=== PATIENT | female | born 1950 | race Caucasian/White ===

== ENCOUNTER 2017-10-29 08:20 | Day surgery (SDC) | payer MEDICARE, OTHER ==
[2017-10-27 13:01] VITALS: BMI 38.0
[~2017-10-29 08:20] MED LIST: LACTATED RINGERS 1,000 ML IV SCH
[2017-10-29 08:53] VITALS: RESP 16; TEMP 98
[2017-10-29 08:55] LABS: Glucose,Whole Blood 165 mg/dL (75-99)
[2017-10-29] MEDS ORDERED: PROPOFOL 10 MG/ML 20 ML VIAL IV ONE (08:58)
[2017-10-29] MEDS ORDERED: LIDOCAINE 1% INJ 10MG/ML (20 ML MDV) ONE (08:58)
--- NOTE | 2017-10-29 08:58 | P.GSHP ---
History of Present Illness H&P Date: 10/29/17 Chief Complaint: GERD This is a 59-year-old female referred from Dr. brown. Patient rents today for EGD. She's had issues with GERD. Past Medical History Past Medical History: Diabetes Mellitus, GERD/Reflux, Hyperlipidemia, Hypertension, Myocardial Infarction ([place]), Osteoarthritis (OA), Sleep Apnea/CPAP/ BIPAP, Thyroid Disorder Additional Past Medical History / Comment(s): HIATAL HERNIA, STATES "FOOD GETS STUCK AND THEN I THROW UP" Last Myocardial Infarction Date:: unknown History of Any Multi-Drug Resistant Organisms: None Reported Past Surgical History: Cholecystectomy, Heart Catheterization, Tubal Ligation Past Anesthesia/Blood Transfusion Reactions: Previous Problems w/ Anesthesia Additional Past Anesthesia/Blood Transfusion Reaction / Comment(s): difficulty waking up after anes. Smoking Status: Never smoker - Past Family History Father Family Medical History: Deep Vein Thrombosis (DVT) Medications and Allergies Home Medications Medication Instructions Recorded Confirmed Type Hydrochlorothiazide [Hydrodiuril] 25 mg PO DAILY 06/07/14 10/27/17 History Levothyroxine Sodium [Synthroid] 25 mcg PO DAILY 06/07/14 10/27/17 History Loratadine [Claritin] 10 mg PO DAILY PRN 06/07/14 10/27/17 History Losartan [Cozaar] 50 mg PO QAM 06/07/14 10/27/17 History Metoprolol Succinate 25 mg PO QAM 06/07/14 10/27/17 History metFORMIN HCL [Glucophage] 1,000 mg PO DAILY 06/07/14 10/27/17 History Aspirin [Children's Aspirin] 81 mg PO DAILY 10/27/17 10/27/17 History DULoxetine HCL [Cymbalta] 120 mg PO QAM 10/27/17 10/27/17 History Fish Oil/Dha/Epa [Fish Oil 1,200 1 each PO DAILY 10/27/17 10/27/17 History mg Fish Oil] Omeprazole 20 mg PO DAILY 10/27/17 10/27/17 History Rosuvastatin [Crestor] 20 mg PO DAILY 10/27/17 10/27/17 History glipiZIDE [Glucotrol] 5 mg PO AC-BRKFST 10/27/17 10/27/17 History sitaGLIPtin [Januvia] 100 mg PO DAILY 10/27/17 10/27/17 History Allergies Allergy/AdvReac Type Severity Reaction Status Date / Time Penicillins Allergy Dyspnea Verified 10/29/17 08:29 Surgical - Exam Vital Signs Temp Pulse Resp BP Pulse Ox 98.0 F 70 16 132/60 97 10/29/17 08:51 10/29/17 08:51 10/29/17 08:51 10/29/17 08:51 10/29/17 08:51 BMI 38 - General well developed, no distress - Eyes PERRL - ENT normal pinna - Neck no masses - Respiratory normal expansion - Cardiovascular Rhythm: regular - Abdomen Abdomen: soft, non tender Results - Labs Abnormal Lab Results - Last 24 Hours (Table) 10/29/17 Range/Units 08:46 POC Glucose (mg/dL) 165 H (75-99) mg/dL Assessment and Plan Assessment: GERD. We'll perform EGD.
--- NOTE | 2017-10-29 09:07 | P.OP ---
Date of Procedure: 10/29/17 Preoperative Diagnosis: GERD Postoperative Diagnosis: Hiatal hernia Antral gastritis Esophagitis Procedure(s) Performed: Laparoscopic Ciaran fundoplication Anesthesia: MAC Surgeon: Nathen Guo Pathology: other (Antrum, esophagus) Condition: stable Disposition: PACU Description of Procedure: The patient's placed on the endoscopy table lateral position. She received IV sedation. The gastroscope placed oropharynx passed in the esophagus and stomach. Scope was then placed through the pylorus. The first and second portion of the duodenum appeared normal. Scope was then brought back the antrum and this was mildly inflamed. A biopsies was performed. Scope was then retroflexed and the remainder of the stomach appeared normal. There was a moderate size sliding hiatal hernia. The GE junction was at 38 cm. The distal esophagus appeared inflamed and a biopsies performed. The proximal esophagus appeared normal. Scope was then drawn for patient.
[2017-10-29 09:20] LABS: Glucose,Whole Blood 148 mg/dL (75-99)
[2017-10-29 09:47] VITALS: BP 115/75; PULSE 63
== END 2017-10-29 10:08 | disposition home or self-care (01) ==
LOC: ORWHC2ENDO 08:20
PROVIDERS: ATTEND Surgery
DX: K29.50 Unspecified chronic gastritis without bleeding (principal); K21.0 Gastro-esophageal reflux disease with esophagitis; K44.9 Diaphragmatic hernia without obstruction or gangrene; E11.9 Type 2 diabetes mellitus without complications; Z79.84 Long term (current) use of oral hypoglycemic drugs; E78.5 Hyperlipidemia, unspecified; I10 Essential (primary) hypertension; E07.9 Disorder of thyroid, unspecified; I25.10 Atherosclerotic heart disease of native coronary artery without angina pectoris; I25.2 Old myocardial infarction; M19.90 Unspecified osteoarthritis, unspecified site; G47.33 Obstructive sleep apnea (adult) (pediatric); Z99.89 Dependence on other enabling machines and devices; Z79.82 Long term (current) use of aspirin; Z79.899 Other long term (current) drug therapy; Z88.0 Allergy status to penicillin
CPT/HCPCS: 88305; 88342; 43239; J2001; J2704

== ENCOUNTER → 2017-11-17 | Outpatient (CLI) | payer MEDICARE, OTHER ==
[2017-11-17 13:21] LABS: Basophils # (A) 0.1 k/uL (0-0.2); Basophils % (A) 1 %; Eosinophils # (A) 0.2 k/uL (0-0.7); Eosinophils % (A) 2 %; HCT 41.2 % (34.0-46.0); HGB 14.2 gm/dL (11.4-16.0); Lymphocytes # (A) 2.4 k/uL (1.0-4.8); Lymphocytes % (A) 34 %; MCH 31.7 pg (25.0-35.0); MCHC 34.4 g/dL (31.0-37.0); MCV 92.1 fL (80.0-100.0); Mean Platelet Volume 7.2; Monocytes # (A) 0.5 k/uL (0-1.0); Monocytes % (A) 8 %; Neutrophils # (A) 3.7 k/uL (1.3-7.7); Neutrophils % (A) 53 %; Platelet Count 255 k/uL (150-450); RBC 4.47 m/uL (3.80-5.40); RDW 13.4 % (11.5-15.5); WBC 7.1 k/uL (3.8-10.6)
== END | disposition home or self-care (01) ==
LOC: LABPAT 12:43
PROVIDERS: ATTEND Surgery
DX: Z01.818 Encounter for other preprocedural examination (principal); Z01.812 Encounter for preprocedural laboratory examination; D64.9 Anemia, unspecified; K21.0 Gastro-esophageal reflux disease with esophagitis; F17.200 Nicotine dependence, unspecified, uncomplicated
CPT/HCPCS: 36415; 85025; 93005

== ENCOUNTER 2017-11-21 08:47 | Day surgery (SDC) | payer MEDICARE, OTHER ==
[2017-11-17 11:53] VITALS: BMI 37.8
[~2017-11-21 08:47] MED LIST changes: +CLINDAMYCIN 900 MG in DEXTROSE 5% IN WATER 50 ML IVPB ONE; +DEXAMETHASONE SOD PHOSPHATE 10 MG/ML 1 ML VIAL IV ONE; +GENTAMICIN 380 MG in SODIUM CHLORIDE 0.9% 100 ML IVPB ONE; +HEPARIN SODIUM,PORCINE 5,000 UNIT/ML 1 ML VIAL SQ ONE; +MIDAZOLAM 2 MG/2 ML VIAL IV PRN; +ONDANSETRON 4 MG/2 ML VIAL IVP ONE; +fentaNYL (PF) 50 MCG/ML 2 ML AMP IV PRN
[2017-11-21 09:39] LABS: Glucose,Whole Blood 165 mg/dL (75-99)
--- NOTE | 2017-11-21 10:10 | P.GSHP ---
History of Present Illness H&P Date: 11/21/17 Chief Complaint: . This is a 59-year-old female referred from Dr. Tolentino.The patient has had long- standing problems with reflux esophagitis. The patient underwent recent EGD is found have evidence of esophagitis. Patient has been well informed on the procedure of laparoscopic Ciaran fundoplication. The patient is aware the risk of the conversion to the open procedure, risk of injury to the stomach, liver and spleen. The patient is also a risk of recurrent GERD and dysphagia symptoms. The patient understands there is a postoperative diet of full liquids for 2 weeks after surgery. Past Medical History Past Medical History: Diabetes Mellitus, GERD/Reflux, Hyperlipidemia, Hypertension, Myocardial Infarction ([place]), Osteoarthritis (OA), Sleep Apnea/CPAP/ BIPAP, Thyroid Disorder Additional Past Medical History / Comment(s): HIATAL HERNIA, STATES "FOOD GETS STUCK AND THEN I THROW UP" Last Myocardial Infarction Date:: unknown History of Any Multi-Drug Resistant Organisms: None Reported Past Surgical History: Cholecystectomy, Heart Catheterization, Tubal Ligation Additional Past Surgical History / Comment(s): EGD-10/29/17 Past Anesthesia/Blood Transfusion Reactions: Previous Problems w/ Anesthesia Additional Past Anesthesia/Blood Transfusion Reaction / Comment(s): difficulty waking up after anes. Smoking Status: Never smoker - Past Family History Father Family Medical History: Congestive Heart Failure (CHF), Diabetes Mellitus Medications and Allergies Home Medications Medication Instructions Recorded Confirmed Type Hydrochlorothiazide [Hydrodiuril] 25 mg PO AC-LUNCH 06/07/14 11/17/17 History Levothyroxine Sodium [Synthroid] 25 mcg PO AC-LUNCH 06/07/14 11/17/17 History Loratadine [Claritin] 10 mg PO AC-LUNCH PRN 06/07/14 11/17/17 History Losartan [Cozaar] 50 mg PO AC-LUNCH 06/07/14 11/17/17 History Metoprolol Succinate 25 mg PO AC-LUNCH 06/07/14 11/17/17 History metFORMIN HCL [Glucophage] 1,000 mg PO DAILY 06/07/14 11/17/17 History Aspirin [Children's Aspirin] 81 mg PO AC-LUNCH 10/27/17 11/17/17 History DULoxetine HCL [Cymbalta] 120 mg PO AC-LUNCH 10/27/17 11/17/17 History Fish Oil/Dha/Epa [Fish Oil 1,200 1 each PO AC-LUNCH 10/27/17 11/17/17 History mg Fish Oil] Omeprazole 20 mg PO AC-LUNCH 10/27/17 11/17/17 History Rosuvastatin [Crestor] 20 mg PO AC-LUNCH 10/27/17 11/17/17 History glipiZIDE [Glucotrol] 5 mg PO AC-BRKFST 10/27/17 11/17/17 History sitaGLIPtin [Januvia] 100 mg PO AC-LUNCH 10/27/17 11/17/17 History Allergies Allergy/AdvReac Type Severity Reaction Status Date / Time Penicillins Allergy Dyspnea Verified 11/21/17 09:26 Surgical - Exam Vital Signs Temp Pulse Resp BP Pulse Ox 97.8 F 75 16 146/81 96 11/21/17 09:29 11/21/17 09:29 11/21/17 09:29 11/21/17 09:29 11/21/17 09:29 - General well developed, no distress - Eyes PERRL - ENT normal pinna - Neck no masses - Respiratory normal expansion - Cardiovascular Rhythm: regular - Abdomen Abdomen: soft, non tender Results - Labs Abnormal Lab Results - Last 24 Hours (Table) 11/21/17 Range/Units 09:37 POC Glucose (mg/dL) 165 H (75-99) mg/dL Assessment and Plan Assessment: GERD. We'll perform laparoscopic Ciaran fundoplication.
[2017-11-21] MEDS ORDERED: MIDAZOLAM 2 MG/2 ML VIAL ONE (10:33)
[2017-11-21] MEDS ORDERED: PHENYLEPHRINE-0.9% NACL SYG 1 MG/10 ML SYRINGE ONE (10:33)
[2017-11-21] MEDS ORDERED: GLYCOPYRROLATE 0.2 MG/ML 2 ML VIAL ONE (10:33)
[2017-11-21] MEDS ORDERED: NEOSTIGMINE 1 MG/ML 10 ML VIAL ONE (10:33)
[2017-11-21] MEDS ORDERED: LIDOCAINE 1% INJ 10MG/ML (20 ML MDV) ONE (10:33)
[2017-11-21] MEDS ORDERED: fentaNYL (PF) 50 MCG/ML 2 ML AMP ONE (10:33)
[2017-11-21] MEDS ORDERED: PROPOFOL 10 MG/ML 20 ML VIAL IV ONE (10:33)
[2017-11-21] MEDS ORDERED: SUCCINYLCHOLINE CHLORIDE 100 MG/5 ML SYR IV ONE (10:33)
[2017-11-21] MEDS ORDERED: ROCURONIUM BROMIDE 10 MG/ML 10 ML VIAL IV ONE (10:33)
[2017-11-21] MEDS ORDERED: BUPIVACAINE (PF) 0.25% 30 ML VIAL SQ ONE (10:55)
[2017-11-21] MEDS ORDERED: ONDANSETRON 4 MG/2 ML VIAL IVP PRN (12:05)
--- NOTE | 2017-11-21 12:18 | P.OP ---
Date of Procedure: 11/21/17 Preoperative Diagnosis: GERD Postoperative Diagnosis: Large hiatal hernia with omentum and stomach within hernia sac Procedure(s) Performed: Laparoscopic Ciaran fundal plication with mesh repair of hiatus Anesthesia: ANDIE Surgeon: Nathen Guo Estimated Blood Loss (ml): 5 Pathology: none sent Condition: stable Disposition: PACU Description of Procedure: The patient was placed on the operating table in the supine position. She received general anesthesia. She was then placed in dorsal lithotomy position. Her abdomen was prepped and draped in the usual sterile fashion. The skin incision sites were anesthetized with 1% local Xylocaine. The skin was incised in the left periumbilical area with an 11 scalpel. Using a 5 mm blade was trocar under direct visitation the peritoneal cavity was entered. And then insufflated. After adequate insufflation the laparoscope was placed back into the peritoneal cavity. Next a 5 mm trocar was placed in the right epigastric and then the right lateral position. Another 5 mm trochars placed in the left lateral position. Another 5 mm trocar placed in the left epigastric position. And the original left periumbilical trocar was exchanged for a 10 mm trocar. The left lateral lobe liver was retracted. The patient had a large hiatal hernia. Using the Harmonic scissors the crural defect was dissected in the Harmonic scissors were used to dissect the hiatal hernia sac. The fundus of the stomach was completely mobilized by using the Harmonic scissors to divide short gastric vessels. The stomach was reduced into the peritoneal cavity. The crura was dissected with the Harmonic scissors. And then the crural repair was performed using 2-0 Ethibond suture. The Ciales bio A mesh was then placed over top of the repair and secured with 2-0 Ethibond suture. Next a 58-Bel[place]ian bougie dilator was placed the patient's oral pharynx and into the esophagus into the stomach by the [employer]. The fundoplication was then performed using 2-0 Ethibond suture. A 360 fundoplication was performed. At this point the dilator was withdrawn. The stomach and esophagus were inspected there is known to any injury to the stomach or esophagus. The abdomen was irrigated there is no bleeding seen. The trochars are withdrawn. Skin was closed interrupted 3-0 Monocryl suture. Dermabond was applied. Patient tolerated procedure well and was sent to recovery in stable condition.
[2017-11-21 12:19] LABS: Glucose,Whole Blood 193 mg/dL (75-99)
[2017-11-21] MEDS ORDERED: fentaNYL (PF) 50 MCG/ML 2 ML AMP IVP ONE (12:29)
--- NOTE | 2017-11-21 14:42 | P.CONS ---
History of Present Illness - Reason for Consult Consult date: 11/21/17 - Chief Complaint Medical management - History of Present Illness 67 years old female patient of Dr. Tolentino with past medical history of type 2 diabetes, hyperlipidemia, hypertension, questionable history of myocardial infarction(patient states she has myocardial infarction, though normal cardiac cath from 2013), osteoarthritis, history of obstructive sleep apnea on CPAP at home, hypothyroidism is admitted for an elective laparoscopic Ciaran fundoplication with Dr. Guo. Patient had ongoing reflux esophagitis with a feeling of food getting stuck in the esophagus following by an episode of vomiting for the past few years. Patient denies any chest pain, breathing difficulty, cough, nausea or vomiting. She does have some pain around the site of her ports and some soreness of her shoulder but denies any motor or sensory deficit. Patient denies any history of blood clots in the past. Vitals include a pulse of 72, respiratory rate 18, blood pressure 139/79 , saturating well on room air. Glucose is slightly elevated 193. Review of Systems Constitutional: Denies chills, Denies fever, Denies lethargy, Denies malaise, Denies poor appetite, Denies weakness, Denies weight loss Eyes: denies decreased vision, denies diplopia, denies discharge, denies pain Ears: deny: decreased hearing Ears, nose, mouth and throat: Denies dental pain, Denies headache, Denies nasal discharge, Denies nose pain Cardiovascular: Denies chest pain, Denies decreased exercise tolerance, Denies edema, Denies high blood pressure, Denies irregular heart beat, Denies palpitations, Denies paroxysmal nocturnal dyspnea, Denies rapid heart beat, Denies shortness of breath Respiratory: Denies congestion, Denies cough, Denies cough with sputum, Denies dyspnea, Denies home oxygen, Denies wheezing Gastrointestinal: Denies abdominal pain, Denies change in bowel habits, Denies coffee ground emesis, Denies early satiety, Denies excessive gas, Denies heartburn, Denies hematemesis, Denies hematochezia, Denies loss of appetite, Denies nausea, Denies vomiting Genitourinary: Denies dysuria, Denies flank pain, Denies kidney stones, Denies menorrhagia, Denies urgency, Denies urinary frequency Musculoskeletal: Denies gait dysfunction, Denies limitation of motion, Denies morning stiffness, Denies muscle cramps, endorses shoulder pain Integumentary: Denies rash, Denies wounds, Denies brittle nails, Denies change in hair/nails, Denies darkening of skin Neurological: Denies balance difficulties, Denies change in speech, Denies double vision, Denies gait dysfunction, Denies loss of vision, Denies motor disturbance, Denies numbness, Denies paralysis, Denies paresthesias, Denies seizures Psychiatric: Denies anxiety, Denies depression Endocrine: Denies excessive sweating, Denies excessive thirst, Denies high blood sugars, Denies palpitations Hematologic/Lymphatic: Denies easy bruising, Denies lymphadenopathy Past Medical History Past Medical History: Diabetes Mellitus, GERD/Reflux, Hyperlipidemia, Hypertension, Osteoarthritis ([place]), Sleep Apnea/CPAP/BIPAP, Thyroid Disorder Additional Past Medical History / Comment(s): HIATAL HERNIA, STATES "FOOD GETS STUCK AND THEN I THROW UP" Last Myocardial Infarction Date:: unknown History of Any Multi-Drug Resistant Organisms: None Reported Past Surgical History: Cholecystectomy, Heart Catheterization (normal heart cath in 2013 negative for any obstructive coronary artery lesions), Tubal Ligation Additional Past Surgical History / Comment(s): EGD-10/29/17 Past Anesthesia/Blood Transfusion Reactions: Previous Problems w/ Anesthesia Additional Past Anesthesia/Blood Transfusion Reaction / Comm: difficulty waking up after anes. Past Psychological History: Depression Additional Psychological History / Comment(s): meds are effective Smoking Status: Never smoker Past Alcohol Use History: Occasional Past Drug Use History: None Reported - Past Family History Father Family Medical History: Congestive Heart Failure (CHF), Diabetes Mellitus Mother Family Medical History: COPD, Hypertension Brother(s) Family Medical History: Coronary Artery Disease (CAD), Diabetes Mellitus ( patient has 2 brothers with one brother had 3 episodes of heart attacks. Other brother has diabetes. Patient has no sisters. Patient has 2 kids with diabetes. Patient denies any history of cancer in the family) Medications and Allergies Home Medications Medication Instructions Recorded Confirmed Type Hydrochlorothiazide [Hydrodiuril] 25 mg PO AC-LUNCH 06/07/14 11/21/17 History Levothyroxine Sodium [Synthroid] 25 mcg PO AC-LUNCH 06/07/14 11/21/17 History Loratadine [Claritin] 10 mg PO AC-LUNCH PRN 06/07/14 11/21/17 History Losartan [Cozaar] 50 mg PO AC-LUNCH 06/07/14 11/21/17 History Metoprolol Succinate 25 mg PO AC-LUNCH 06/07/14 11/21/17 History metFORMIN HCL [Glucophage] 1,000 mg PO BID-W/MEALS 06/07/14 11/21/17 History Aspirin [Children's Aspirin] 81 mg PO AC-LUNCH 10/27/17 11/21/17 History DULoxetine HCL [Cymbalta] 120 mg PO AC-LUNCH 10/27/17 11/21/17 History Fish Oil/Dha/Epa [Fish Oil 1,200 1 each PO AC-LUNCH 10/27/17 11/21/17 History mg Fish Oil] Omeprazole 20 mg PO AC-LUNCH 10/27/17 11/21/17 History Rosuvastatin [Crestor] 20 mg PO AC-LUNCH 10/27/17 11/21/17 History sitaGLIPtin [Januvia] 100 mg PO AC-LUNCH 10/27/17 11/21/17 History Docusate [Colace] 100 mg PO BID #20 capsule 11/21/17 Rx HYDROcodone/APAP 7.5-325MG [[place] 1 each PO Q4H PRN #30 tab 11/21/17 Rx 7.5] Allergies Allergy/AdvReac Type Severity Reaction Status Date / Time Penicillins Allergy Severe Dyspnea Verified 11/21/17 13:46 Physical Exam Vitals: Vital Signs Temp Pulse Pulse Resp BP BP Pulse Ox 11/21/17 14:00 72 18 139/79 95 11/21/17 13:45 95 18 143/81 95 11/21/17 13:30 97.2 F L 63 18 151/86 97 11/21/17 13:15 67 18 133/64 95 11/21/17 13:00 66 16 136/64 95 11/21/17 12:45 67 18 135/6 93 L 11/21/17 12:30 64 18 140/63 93 L 11/21/17 12:17 65 18 146/65 93 L 11/21/17 12:02 98.3 F 71 14 142/64 92 L 11/21/17 09:29 97.8 F 75 16 146/81 96 Intake and Output 11/20/17 11/21/17 11/21/17 22:59 06:59 14:59 Intake Total 1115.5 Output Total 20 Balance 1095.5 Intake: IV 1115.5 Output: Estimated Blood Loss 20 Other: Voiding Method Toilet Weight 106.141 kg - Constitutional General appearance: cooperative, no acute distress, obese - EENT Eyes: anicteric sclerae, PERRLA, normal appearance ENT: hearing grossly normal - Neck Neck: no lymphadenopathy, normal ROM, no other, no rigidity, no stridor, no thyromegaly - Respiratory Respiratory: bilateral: CTA, negative: diminished, dullness, rales, rhonchi - Cardiovascular Rhythm: regular Heart sounds: normal: S1, S2 Abnormal Heart Sounds: no systolic murmur, no diastolic murmur, no rub, no S3 Gallop, no S4 Gallop, no click, no other - Gastrointestinal General gastrointestinal: normal bowel sounds, soft, nontender site of incision appears without any sign of edema. Slight soreness on palpation of the abdomen at the site of port - Integumentary Integumentary: no rash - Neurologic Neurologic: CNII-XII intact - Musculoskeletal Musculoskeletal: strength equal bilaterally - Psychiatric Psychiatric: A&O x's 3, appropriate affect Results Labs: Abnormal Lab Results - Last 24 Hours (Table) 11/21/17 11/21/17 Range/Units 09:37 12:17 POC Glucose (mg/dL) 165 H 193 H (75-99) mg/dL Assessment and Plan Plan: #1 GERD with large hiatal hernia status post laparoscopic Ciaran fundoplication postoperative D0 -patient examined postoperatively, continue clear liquid diet. Incentive spirometry. Pain management per primary team. Continue on omeprazole #2 type 2 diabetes continue Januvia. Hold metformin for tonight. Can be restarted on discharge. #3 hyperlipidemia continue Crestor 20 mg with lunch #4 hypertension continue metoprolol, losartan. Hold hydrochlorothiazide for possible [place] I. No previous labs to compare. Obtain CMP #5 hypothyroidism continue home Synthyroid 25 g with lunch #6 depression continue Cymbalta 120 mg with lunch #7 questionable history of myocardial infarction based on stress test results according to the patient. Cardiac cath from 2013 negative for any coronary artery lesions. Continue aspirin, metoprolol, losartan. Asymptomatic patient does have family history of coronary artery disease with type 2 diabetes watch for chest pain. Since patient is asymptomatic no intervention needed at this point #8 CODE STATUS full code #9 DVT prophylaxis with heparin every 12 #10 GI prophylaxis with omeprazole 20 mg daily Thank you for the consult. I'll be happy to assist in patient's medical needs during the patient's hospital stay.
--- NOTE | 2017-11-21 15:52 | FL ---
Single contrast esophagram EXAMINATION TYPE: FL esophagus cervic/pharynx DATE OF EXAM: 11/21/2017 3:40 PM COMPARISON: NONE post op Ciaran fundoplasty, 50ml omnipaque 350, 46sec fl time CLINICAL HISTORY: Status post Wilver fundoplication The patient ingested contrast without difficulty or delay. Noted are changes of Wilver fundoplicatio n. There is no evidence for leak or obstruction. Small amount of residual contrast within the distal esophagus. IMPRESSION: Post-surgical change of Wilver fundoplication without evidence for leak or obstruction. S mall residual distal esophagus.
[2017-11-21] MEDS: D5-0.45% NACL WITH KCL 20MEQ/L 1,000 ML IV SCH ×2 (15:54→22:27)
[2017-11-21 16:46] LABS: Albumin 4.2 g/dL (3.5-5.0); Calcium 9.4 mg/dL (8.4-10.2); Potassium 4.2 mmol/L (3.5-5.1); Total Bilirubin 0.7 mg/dL (0.2-1.3)
[2017-11-21 21:50] LABS: Glucose,Whole Blood 262 mg/dL (75-99)
[2017-11-21] MEDS: INSULIN ASPART 100 UNIT/ML 1 ML 10 ML VIAL SQ SCH (22:08)
[2017-11-21] MEDS: FAMOTIDINE 20 MG/2 ML VIAL IV SCH (22:13)
[2017-11-21] MEDS: MORPHINE SULFATE/PF 10MG/10ML VL IVP PRN (22:24)
[2017-11-22] MEDS: MORPHINE SULFATE/PF 10MG/10ML VL IVP PRN (05:39)
[2017-11-22] MEDS: D5-0.45% NACL WITH KCL 20MEQ/L 1,000 ML IV SCH (05:45)
[2017-11-22 07:21] LABS: Glucose,Whole Blood 209 mg/dL (75-99)
[2017-11-22 07:22] VITALS: RESP 20; TEMP 97.5
[2017-11-22] MEDS: INSULIN ASPART 100 UNIT/ML 1 ML 10 ML VIAL SQ SCH ×2 (08:34→13:05)
[2017-11-22] MEDS: FAMOTIDINE 20 MG/2 ML VIAL IV SCH (08:34)
[2017-11-22] MEDS ORDERED: SODIUM CHLORIDE 0.9% 1,000 ML IV SCH (08:45)
[2017-11-22] MEDS ORDERED: ENOXAPARIN 40 MG/0.4 ML SYRINGE SQ SCH (09:00)
--- NOTE | 2017-11-22 10:54 | P.DS ---
Providers Expected date of discharge: 11/22/17 Attending physician: Nathen Guo Consults: 11/21/17 12:05 Consult Physician Routine Consulting Provider: Valente Nails Consult Reason/Comments: Medical management Do you want consulting provider notified?: Yes Primary care physician: Humza Roberto [facility] Course: Patient underwent repair of a large hiatal hernia. She is doing well today. No pain currently. Tolerating clear liquids. Her postoperative upper GI showed no evidence of leak or obstruction. Prescriptions have been be prescribed by Dr. Guo. She will follow up with him in 1 week. Plan - Discharge Summary Discharge Rx Participant: Yes New Discharge Prescriptions: New Docusate [Colace] 100 mg PO BID #20 capsule HYDROcodone/APAP 7.5-325MG [[place] 7.5] 1 each PO Q4H PRN #30 tab PRN Reason: Pain No Action Losartan [Cozaar] 50 mg PO AC-LUNCH Hydrochlorothiazide [Hydrodiuril] 25 mg PO AC-LUNCH Loratadine [Claritin] 10 mg PO AC-LUNCH PRN PRN Reason: ALLERGIES Levothyroxine Sodium [Synthroid] 25 mcg PO AC-LUNCH metFORMIN HCL [Glucophage] 1,000 mg PO BID-W/MEALS Metoprolol Succinate 25 mg PO AC-LUNCH sitaGLIPtin [Januvia] 100 mg PO AC-LUNCH DULoxetine HCL [Cymbalta] 120 mg PO AC-LUNCH Aspirin [Children's Aspirin] 81 mg PO AC-LUNCH Rosuvastatin [Crestor] 20 mg PO AC-LUNCH Omeprazole 20 mg PO AC-LUNCH Fish Oil/Dha/Epa [Fish Oil 1,200 mg Fish Oil] 1 each PO AC-LUNCH Discharge Medication List Hydrochlorothiazide [Hydrodiuril] 25 mg PO AC-LUNCH 06/07/14 [History] Levothyroxine Sodium [Synthroid] 25 mcg PO AC-LUNCH 06/07/14 [History] Loratadine [Claritin] 10 mg PO AC-LUNCH PRN 06/07/14 [History] Losartan [Cozaar] 50 mg PO AC-LUNCH 06/07/14 [History] Metoprolol Succinate 25 mg PO AC-LUNCH 06/07/14 [History] metFORMIN HCL [Glucophage] 1,000 mg PO BID-W/MEALS 06/07/14 [History] Aspirin [Children's Aspirin] 81 mg PO AC-LUNCH 10/27/17 [History] DULoxetine HCL [Cymbalta] 120 mg PO AC-LUNCH 10/27/17 [History] Fish Oil/Dha/Epa [Fish Oil 1,200 mg Fish Oil] 1 each PO AC-LUNCH 10/27/17 [ History] Omeprazole 20 mg PO AC-LUNCH 10/27/17 [History] Rosuvastatin [Crestor] 20 mg PO AC-LUNCH 10/27/17 [History] sitaGLIPtin [Januvia] 100 mg PO AC-LUNCH 10/27/17 [History] Docusate [Colace] 100 mg PO BID #20 capsule 11/21/17 [Rx] HYDROcodone/APAP 7.5-325MG [[place] 7.5] 1 each PO Q4H PRN #30 tab 11/21/17 [Rx] Follow up Appointment(s)/Referral(s): Nathen Guo MD [STAFF PHYSICIAN] - 2 Weeks
[2017-11-22 11:47] LABS: Glucose,Whole Blood 151 mg/dL (75-99)
[2017-11-22 12:25] VITALS: BP 146/72; PULSE 67
[2017-11-22] MEDS ORDERED: LEVOTHYROXINE 25 MCG TAB PO SCH (12:30)
[2017-11-22] MEDS ORDERED: HYDROCHLOROTHIAZIDE 25 MG TAB PO SCH (12:30)
[2017-11-22] MEDS ORDERED: ASPIRIN 81 MG PO SCH (12:30)
[2017-11-22] MEDS ORDERED: DULoxetine HCL 60 MG CAPSULE.DR PO SCH (12:30)
[2017-11-22] MEDS ORDERED: LOSARTAN 50 MG TAB PO SCH (12:30)
[2017-11-22] MEDS ORDERED: ATORVASTATIN 40 MG TAB PO SCH (12:30)
[2017-11-22] MEDS ORDERED: PANTOPRAZOLE 40 MG TABLET PO SCH (12:30)
[2017-11-22] MEDS ORDERED: METOPROLOL SUCCINATE (ER) 25 MG TAB.ER.24H PO SCH (12:30)
[2017-11-22] MEDS ORDERED: LINAGLIPTIN 5 MG TABLET PO SCH (12:30)
[2017-11-22 14:05] LABS: Hemoglobin A1C 7.1 % (4.0-6.0)
== END 2017-11-22 17:04 | disposition home or self-care (01) ==
LOC: OR 08:47 → 6PED 12:02 → OR 11-22 17:04
PROVIDERS: ATTEND Surgery
DX: K21.0 Gastro-esophageal reflux disease with esophagitis (principal); K44.9 Diaphragmatic hernia without obstruction or gangrene; I10 Essential (primary) hypertension; E78.5 Hyperlipidemia, unspecified; E11.9 Type 2 diabetes mellitus without complications; Z79.84 Long term (current) use of oral hypoglycemic drugs; I25.2 Old myocardial infarction; M19.90 Unspecified osteoarthritis, unspecified site; F32.9 Major depressive disorder, single episode, unspecified; G47.33 Obstructive sleep apnea (adult) (pediatric); Z99.89 Dependence on other enabling machines and devices; E07.9 Disorder of thyroid, unspecified; Z79.82 Long term (current) use of aspirin; Z79.899 Other long term (current) drug therapy; Z88.0 Allergy status to penicillin
CPT/HCPCS: 80053; 83036; 74210; 43282; C1781; J2250; J1644; J1100; J2710; Q9967; J2405; J2001; J1650; J3010; J1580; J2370; J0330; J2704; J2270 ×2; 86850; 86900; 86901

== ENCOUNTER 2017-11-29 10:08 | Emergency (ER) | payer MEDICARE, OTHER ==
--- NOTE | 2017-11-29 11:01 | XR ---
EXAMINATION TYPE: XR chest 2V DATE OF EXAM: 11/29/2017 HISTORY: cough. REFERENCE: NONE. FINDINGS: There is platelike atelectasis in both lungs. Pleural spaces are clear. The heart is not en larged. IMPRESSION: PLATELIKE ATELECTASIS, BOTH LUNGS.
--- NOTE | 2017-11-29 11:02 | XR ---
EXAMINATION TYPE: XR abdomen 2V , 3 VIEWS DATE OF EXAM ORDERED: 11/29/2017 HISTORY: Pain. COMPARISON: None. FINDINGS: There has been a previous cholecystectomy. There is platelike atelectasis at the left lung base. The lung bases are otherwise clear. Within the abdomen, the abdominal gas pattern is normal. There is no evidence of obstruction or free air. No unusual calcifications are seen. IMPRESSION: 1. NO ACUTE INTRA-ABDOMINAL ABNORMALITY. 2. PLATELIKE ATELECTASIS, LEFT LUNG BASE.
[2017-11-29] MEDS ORDERED: SODIUM CHLORIDE 0.9% 2,000 ML IV STA (11:40)
--- NOTE | 2017-11-29 11:40 | ED ---
General Adult HPI - General Chief complaint: Recheck/Abnormal Lab/Rx Stated complaint: post op hiatel hernia, vomiting Time Seen by Provider: 11/29/17 10:26 Source: patient, RN notes reviewed Mode of arrival: wheelchair Limitations: no limitations - History of Present Illness Initial comments: 67-year-old female presents to the emergency department with a chief complaint of 2 episodes of vomiting. Patient had a hiatal hernia repair by Dr. Davidson last Friday. She states that over the last today she's having more difficulty eating and drinking and she had 2 episodes of vomiting today. She states that she was concerned with the vomiting so she thought that she should be seen. She denies any high fevers. She states she has been able tolerate her saliva she has been able to eat and drink she did take her pills today. They were concerned due to the patient's 2 episodes of nausea vomiting so they thought that they should be seen. There is been no fever or chills. Patient denies any recent fever, chills, shortness of breath, chest pain, back pain, abdominal pain , nausea vomiting, numbness or tingling, dysuria or hematuria, constipation or diarrhea, headaches or visual changes, or any other current symptoms. - Related Data Home Medications Medication Instructions Recorded Confirmed Hydrochlorothiazide [Hydrodiuril] 25 mg PO AC-LUNCH 06/07/14 11/29/17 Levothyroxine Sodium [Synthroid] 25 mcg PO QAM 06/07/14 11/29/17 Losartan [Cozaar] 50 mg PO AC-LUNCH 06/07/14 11/29/17 Metoprolol Succinate 25 mg PO AC-LUNCH 06/07/14 11/29/17 Aspirin [Children's Aspirin] 81 mg PO AC-LUNCH 10/27/17 11/29/17 DULoxetine HCL [Cymbalta] 120 mg PO AC-LUNCH 10/27/17 11/29/17 Omeprazole 20 mg PO AC-LUNCH 10/27/17 11/29/17 Rosuvastatin [Crestor] 20 mg PO AC-LUNCH 10/27/17 11/29/17 sitaGLIPtin [Januvia] 100 mg PO AC-LUNCH 10/27/17 11/29/17 Cholecalciferol (Vitamin D3) 2,000 unit PO HS 11/29/17 11/29/17 [Vitamin D3] Cholecalciferol (Vitamin D3) 4,000 unit PO QAM 11/29/17 11/29/17 [Vitamin D3] HYDROcodone/APAP 7.5-325MG [[place] 1 tab PO Q4H PRN 11/29/17 11/29/17 7.5] Naproxen Sodium [Aleve] 440 mg PO Q12H 11/29/17 11/29/17 [place]-3 Fatty Acids/Fish Oil [Fish 1 cap PO HS 11/29/17 11/29/17 Oil 1,000 mg Softgel] [place]-3 Fatty Acids/Fish Oil [Fish 2 cap PO QAM 11/29/17 11/29/17 Oil 1,000 mg Softgel] Triamcinolone 0.025% Cream 1 applic TOPICAL BID 11/29/17 11/29/17 [Kenalog 0.025% Cream] busPIRone HCL 15 mg PO BID 11/29/17 11/29/17 metFORMIN HCL ER [Glucophage Xr] 1,000 mg PO AC-BID 11/29/17 11/29/17 Previous Rx's Medication Instructions Recorded Docusate [Colace] 100 mg PO BID #20 capsule 11/21/17 Allergies Allergy/AdvReac Type Severity Reaction Status Date / Time Penicillins Allergy Severe Dyspnea Verified 11/29/17 12:30 Review of Systems ROS Statement: Those systems with pertinent positive or pertinent negative responses have been documented in the HPI. ROS Other: All systems not noted in ROS Statement are negative. Past Medical History Past Medical History: Diabetes Mellitus, GERD/Reflux, Hyperlipidemia, Hypertension, Osteoarthritis (OA), Sleep Apnea/CPAP/BIPAP, Thyroid Disorder Additional Past Medical History / Comment(s): HIATAL HERNIA, STATES "FOOD GETS STUCK AND THEN I THROW UP" Last Myocardial Infarction Date:: unknown History of Any Multi-Drug Resistant Organisms: None Reported Past Surgical History: Cholecystectomy, Heart Catheterization, Tubal Ligation Additional Past Surgical History / Comment(s): EGD-10/29/17, hiatal hernia surgery Past Anesthesia/Blood Transfusion Reactions: Previous Problems w/ Anesthesia Additional Past Anesthesia/Blood Transfusion Reaction / Comment(s): difficulty waking up after anes. Past Psychological History: Depression Smoking Status: Never smoker Past Alcohol Use History: Occasional Past Drug Use History: None Reported - Past Family History Father Family Medical History: Congestive Heart Failure (CHF), Diabetes Mellitus Mother Family Medical History: COPD, Hypertension Brother(s) Family Medical History: Coronary Artery Disease (CAD), Diabetes Mellitus ( patient has 2 brothers with one brother had 3 episodes of heart attacks. Other brother has diabetes. Patient has no sisters. Patient has 2 kids with diabetes. Patient denies any history of cancer in the family) General Exam Limitations: no limitations General appearance: alert, in no apparent distress ENT exam: Present: normal exam, mucous membranes moist Neck exam: Present: normal inspection. Absent: tenderness, meningismus, lymphadenopathy Respiratory exam: Present: normal lung sounds bilaterally. Absent: respiratory distress, wheezes, rales, rhonchi, stridor Cardiovascular Exam: Present: regular rate, normal rhythm, normal heart sounds. Absent: systolic murmur, diastolic murmur, rubs, gallop, clicks GI/Abdominal exam: Present: soft, normal bowel sounds, other (Well-healing surgical incisions noted). Absent: distended, tenderness, guarding, rebound, rigid Neurological exam: Present: alert, oriented X3 Psychiatric exam: Present: normal affect, normal mood Skin exam: Present: warm, dry, intact, normal color. Absent: rash Course Vital Signs 11/29/17 10:19 Temperature 98.1 F Pulse Rate 72 Respiratory 18 Rate Blood Pressure 114/61 O2 Sat by Pulse 95 Oximetry Medical Decision Making - Medical Decision Making 67-year-old female presents to the emergency department with a chief complaint of episodes of nausea and vomiting. At this time patient's lab work is been reviewed. Dr. Sparrow came down to see the patient and recommended doing magnesium and hydration. At this time patient is requesting discharge home. She has tolerated fluids and liquids here. She will follow-up with Dr. Davidson on Friday. Patient is in agreement this plan all questions have been answered. She will be discharged home - Lab Data Result diagrams: 11/29/17 12:15 11/29/17 12:15 Lab Results 11/29/17 11/29/17 Range/Units 12:15 12:15 WBC 9.7 (3.8-10.6) k/uL RBC 4.48 (3.80-5.40) m/uL Hgb 13.6 (11.4-16.0) gm/dL Hct 39.2 (34.0-46.0) % MCV 87.4 (80.0-100.0) fL MCH 30.4 (25.0-35.0) pg MCHC 34.8 (31.0-37.0) g/dL RDW 13.1 (11.5-15.5) % Plt Count 309 (150-450) k/uL Neutrophils % 64 % Lymphocytes % 23 % Monocytes % 8 % Eosinophils % 4 % Basophils % 1 % Neutrophils # 6.2 (1.3-7.7) k/uL Lymphocytes # 2.3 (1.0-4.8) k/uL Monocytes # 0.7 (0-1.0) k/uL Eosinophils # 0.4 (0-0.7) k/uL Basophils # 0.1 (0-0.2) k/uL Sodium 140 (137-145) mmol/L Potassium 3.9 (3.5-5.1) mmol/L Chloride 96 L (98-107) mmol/L Carbon Dioxide 27 (22-30) mmol/L Anion Gap 17 mmol/L BUN 10 (7-17) mg/dL Creatinine 0.90 (0.52-1.04) mg/dL Est GFR (CKD-EPI)AfAm 76 (>60 ml/min/1.73 sqM) Est GFR (CKD-EPI)NonAf 66 (>60 ml/min/1.73 sqM) Glucose 127 H (74-99) mg/dL Calcium 9.7 (8.4-10.2) mg/dL Magnesium 1.7 (1.6-2.3) mg/dL Total Bilirubin 1.0 (0.2-1.3) mg/dL AST 32 (14-36) U/L ALT 40 (9-52) U/L Alkaline Phosphatase 58 (38-126) U/L Total Protein 7.2 (6.3-8.2) g/dL Albumin 4.3 (3.5-5.0) g/dL - Radiology Data Radiology results: report reviewed, image reviewed Disposition Clinical Impression: Nausea & vomiting Disposition: HOME SELF-CARE Condition: Stable Instructions: Acute Nausea and Vomiting (ED) Additional Instructions: Please use medication as discussed. Please follow up with family doctor if symptoms have not improved over the next two days. Please return to the emergency room if your symptoms increase or worsen or for any other concerns. Referrals: Humza Tolentino MD [Primary Care Provider] - 1-2 days Nathen Guo MD [STAFF PHYSICIAN] - 1-2 days Time of Disposition: 14:24
[2017-11-29 12:29] LABS: Basophils # (A) 0.1 k/uL (0-0.2); Basophils % (A) 1 %; Eosinophils # (A) 0.4 k/uL (0-0.7); Eosinophils % (A) 4 %; HCT 39.2 % (34.0-46.0); HGB 13.6 gm/dL (11.4-16.0); Lymphocytes # (A) 2.3 k/uL (1.0-4.8); Lymphocytes % (A) 23 %; MCH 30.4 pg (25.0-35.0); MCHC 34.8 g/dL (31.0-37.0); MCV 87.4 fL (80.0-100.0); Mean Platelet Volume 7.7; Monocytes # (A) 0.7 k/uL (0-1.0); Monocytes % (A) 8 %; Neutrophils # (A) 6.2 k/uL (1.3-7.7); Neutrophils % (A) 64 %; Platelet Count 309 k/uL (150-450); RBC 4.48 m/uL (3.80-5.40); RDW 13.1 % (11.5-15.5); WBC 9.7 k/uL (3.8-10.6)
[2017-11-29 12:42] LABS: Albumin 4.3 g/dL (3.5-5.0); Calcium 9.7 mg/dL (8.4-10.2); Magnesium 1.7 mg/dL (1.6-2.3); Potassium 3.9 mmol/L (3.5-5.1); Total Protein 7.2 g/dL (6.3-8.2)
--- NOTE | 2017-11-29 12:53 | P.PN ---
Progress Note - Text Progress Note Date: 11/29/17 Patient seen and evaluated. She is comfortable and has been able to take her medications and pills whole without incident. She developed dysphagia following drinking cream of wheat and water. Daughters are at bedside. She is 1 week out following lap hiatal hernia from Dr. Guo. Labs reviewed. Recommend hydration and correction of magnesium. Patient options reviewed including liquids as she is able to tolerate with follow-up with Dr. Guo.
[2017-11-29] MEDS: MAGNESIUM SULFATE-D5W PMX 1 GM in DEXTROSE/WATER 1 100ML.BAG IVPB SCH ×2 (13:02→13:54)
[2017-11-29 15:10] VITALS: BP 117/66; PULSE 66; RESP 16; TEMP 97.8
== END 2017-11-29 15:09 | disposition home or self-care (01) ==
LOC: EC 10:08
DX: R11.2 Nausea with vomiting, unspecified (principal); K21.9 Gastro-esophageal reflux disease without esophagitis; E78.5 Hyperlipidemia, unspecified; M19.90 Unspecified osteoarthritis, unspecified site; I10 Essential (primary) hypertension; E11.9 Type 2 diabetes mellitus without complications; F32.9 Major depressive disorder, single episode, unspecified; E07.9 Disorder of thyroid, unspecified; Z87.19 Personal history of other diseases of the digestive system; Z88.0 Allergy status to penicillin; Z79.1 Long term (current) use of non-steroidal anti-inflammatories (NSAID); Z79.84 Long term (current) use of oral hypoglycemic drugs; Z79.899 Other long term (current) drug therapy; Z90.49 Acquired absence of other specified parts of digestive tract; Z98.890 Other specified postprocedural states
CPT/HCPCS: 99284; 96365; 96367; 96361; 36415; 80053; 83735; 85025; 71046; 74019; J3475

== ENCOUNTER → 2018-09-09 | Outpatient (CLI) | payer MEDICARE, OTHER ==
--- NOTE | 2018-09-13 15:01 | HP ---
HISTORY AND PHYSICAL HISTORY: Ceci Lorenzo is a 68-year-old patient seen with symptomatic left knee osteoarthritis. Treatment options were discussed with her. She elected to proceed with left total knee arthroplasty. Consent regarding procedure was obtained, clearance was provided Dr. Chanda Tolentino. PAST MEDICAL HISTORY: Hypertension, mbx-izalngo-mzrhiolon diabetes, hyperlipidemia, hypothyroidism. PAST SURGICAL HISTORY: Cholecystectomy. MEDICATIONS: Daily medications include buspirone, hydrochlorothiazide, Januvia, levothyroxine, losartan, metformin, metoprolol, rosuvastatin. ALLERGIES: PENICILLIN. SOCIAL HISTORY: Patient denies tobacco use. PHYSICAL EXAMINATION: Evaluation of the left knee range of motion is negative 2 to 115 degrees. Tenderness medial joint line. Positive medial Joellen's. Crepitus along the medial patellofemoral compartments with range of motion. Pain with patellofemoral compression. Ligaments stable. Hip rotation without pain. Distal neurovascular exam is intact left knee. RADIOGRAPHS: Left knee radiographs reveal severe medial moderate patellofemoral compartment osteoarthritis. IMPRESSION: 1. Left knee osteoarthritis. 2. Hypertension. 3. Hyperlipidemia. 4. Hypothyroidism. 5. Kaw-jmrmcdg-eqwyrvflm diabetes. PLAN: Left total knee arthroplasty. MMODL / IJN: [id number] /
== END | disposition home or self-care (01) ==
LOC: LABPAT 13:23
PROVIDERS: ATTEND Orthopaedic Surgery
DX: Z01.812 Encounter for preprocedural laboratory examination (principal)
CPT/HCPCS: 87070

== ENCOUNTER 2018-09-14 10:05 | Inpatient (IN) | payer MEDICARE, OTHER ==
[2018-09-09 12:00] VITALS: BMI 34.9
[~2018-09-14 10:05] MED LIST changes: +ACETAMINOPHEN TAB 500 MG TAB PO ONE; -GENTAMICIN 380 MG in SODIUM CHLORIDE 0.9% 100 ML IVPB ONE; -HEPARIN SODIUM,PORCINE 5,000 UNIT/ML 1 ML VIAL SQ ONE; +HYDROmorphone 0.5 MG/0.5 ML SYRINGE IVP PRN; -LACTATED RINGERS 1,000 ML IV SCH; +LIDOCAINE 1% 20 ML VIAL (10MG/ML) FOR IV START INTRADERMA PRN; +MELOXICAM 7.5 MG TAB PO ONE; -MIDAZOLAM 2 MG/2 ML VIAL IV PRN; +SCOPOLAMINE 1.5MG/72HR PATCH TRANSDERM ONE; +TRANEXAMIC ACID 1,000 MG in SODIUM CHLORIDE 0.9% 50 ML IVPB ONE; -fentaNYL (PF) 50 MCG/ML 2 ML AMP IV PRN
[2018-09-14] MEDS: LACTATED RINGERS 1,000 ML IV SCH ×2 (13:47→18:30)
[2018-09-14 14:01] LABS: Glucose,Whole Blood 139 mg/dL (75-99)
[2018-09-14] MEDS ORDERED: ROPIVACAINE 246.25 MG, EPINEPHrine 0.5 MG, KETOROLAC 30 MG, cloNIDine HCL/PF 80 MCG, WA... MISCELLANE ONE ×5 (14:04)
[2018-09-14] MEDS ORDERED: TRANEXAMIC ACID 1,000 MG/10 ML VIAL ONE (14:42)
[2018-09-14] MEDS ORDERED: PROPOFOL 10 MG/ML 20 ML VIAL IV ONE (14:42)
[2018-09-14] MEDS ORDERED: ROPIVACAINE 1,100 MG, SODIUM CHLORIDE 0.9% 500 ML 330 ML MISCELLANE PRN ×2 (14:42)
[2018-09-14] MEDS ORDERED: ePHEDrine SULFATE/0.9% NACL/PF 50 MG/5 ML SYRINGE IV ONE (14:42)
[2018-09-14] MEDS ORDERED: MIDAZOLAM 2 MG/2 ML VIAL ONE (14:42)
[2018-09-14] MEDS ORDERED: SODIUM CHLORIDE 0.9% 100 ML BAG ONE (14:42)
--- NOTE | 2018-09-14 14:43 | P.ONQ ---
Anesthesiology Proc Note - PNB - Peripheral Nerve Block Performed Left Adductor Canal Infusion Time Out Performed: Yes Procedure Start Time: 14:01 Indication: Acute Post-Operative Pain, Analgesia Sedation Type: Sedate with meaningful contact maintained Preparation: Sterile Prep Position: Supine Catheter Depth at Skin (cm): 8 Catheter: Indwelling Needle Types: Other (see comment) ( Vaibhav) Needle Size: 100mm (4") Needle Gauge: 18 Technique: Ultrasound Injectate: 0.5% Ropivacaine (see comment for volume) (20cc) Blood Aspirated: No Pain Paresthesia on Injection Noted: No Resistance on Injection: Normal Events: Uneventful and Well Tolerated
[2018-09-14] MEDS ORDERED: ceFAZolin 3,000 MG in SODIUM CHLORIDE 0.9% IRRIGATIO 3,000 ML IRRIGATION ONE (15:13)
[2018-09-14] MEDS ORDERED: LACTATED RINGERS 1,000 ML IV ONE (15:30)
[2018-09-14] MEDS ORDERED: ONDANSETRON 4 MG/2 ML VIAL IVP PRN (16:20)
[2018-09-14] MEDS ORDERED: HYDROcodone/APAP 5-325MG 1 EACH TAB PO PRN ×2 (16:20)
[2018-09-14] MEDS ORDERED: HYDROmorphone 0.5 MG/0.5 ML SYRINGE IVP PRN ×3 (16:20)
[2018-09-14] MEDS ORDERED: NALOXONE 0.4 MG/ML 1 ML VIAL IV PRN (16:20)
--- NOTE | 2018-09-14 16:20 | P.OP ---
Date of Procedure: 09/14/18 Preoperative Diagnosis: Left knee osteoarthritis Postoperative Diagnosis: Left knee osteoarthritis Procedure(s) Performed: Left total knee arthroplasty Implants: 1. Depuy attune size 4 left cruciate-retaining cemented femur 2. Depuy attune size 5 fixed bearing cemented tibial baseplate 3. Depuy attune size 4 fixed bearing cruciate retaining 5 mm polyethylene tibial insert 4. Depuy attune 32 mm all polyethylene cemented patella Anesthesia: regional (Adductor canal catheter), local, spinal Surgeon: Mike Stoddard Item Processing Clerk #1: Rahul Matthews Estimated Blood Loss (ml): 50 Pathology: other (Bone) Condition: stable Disposition: PACU Indications for Procedure: 68-year-old patient seen with symptomatic left knee osteoarthritis. After treatment options were discussed, she elected to proceed with total knee arthroplasty Operative Findings: See description of procedure Description of Procedure: Patient was taken to the operative suite after having an adductor canal catheter placed by the department of anesthesia. Patient underwent a spinal anesthetic by the department of anesthesia. Patient was given preoperative IV intake antibiotics and TXA. A well-padded tourniquet was placed about the left lower extremity. The lower extremity was then prepped and draped in the normal sterile orthopedic fashion. The extremity was elevated, a tourniquet was insufflated to 300. A standard anterior incision was made sharply through skin. Dissection was taken down through the subcutaneous soft tissues down to the extensor mechanism. A medial arthrotomy was performed, patella was everted and knee was flexed. There was advanced osteoarthritis noted. I introduced my distal intramedullary femoral drill. I then introduced the distal femoral cutting jig. Thierry VERGARA secured the cutting jig with 2 pins. I held retractors in position while Thierry VERGARA performed the distal femoral resection through the guide area we now removed her distal femoral cutting guide. We now placed our 4-in-1 femoral cutting block and positioned and it was secured with 2 pins by Thierry VERGARA while I held the block in position. The distal femoral finishing was now completed. A proximal tibial cutting guide was positioned. I held the guide in the appropriate position with both hands well Thierry VERGARA inserted stabilizing pins into the guide. Proximal tibial cut was made. We now placed a trial femoral component into position, along with an appropriate size tibial tray and insert. We now took the knee through range of motion and had full extension good flexion and good overall soft tissue balance noted. The patella was everted and stabilized with 2 towel clips held by Thierry VERGARA while I performed a flush with patellar quad tendon utilizing a fresh sawblade. We templated the patella, appropriate drill holes were made. An appropriate trial patella was positioned, knee was taken through full range of motion with the patella tracking very nicely. The trial patella was removed. Drill holes were made through the femoral component. All trial components were removed after marking off the appropriate rotation of the tibia. Retractors were now positioned along the proximal tibia. An appropriate keel punch was made with the appropriate size tibial guide by myself on Thierry VERGARA assisted by holding retractors. At this point appropriate size implants were chosen and opened. The joint was irrigated copiously with pulse lavage mechanical irrigation. The posterior capsule was infiltrated with local analgesic. The wound was irrigated with pulse lavage mechanical irrigation. We mixed antibiotic methylmethacrylate. We placed the knee into flexion. We placed multiple retractors assisted by Thierry VERGARA to expose the proximal tibia. Once the methyl methacrylate was ready, the tibial component was cemented into place removing any excess methylmethacrylate form by both myself and Thierry VERGARA. The femoral component was cemented into place removing the removing any excess methylmethacrylate performed by both myself and Thierry VERGARA. We then inserted the appropriate size polyethylene tibial insert. We made sure that it was locked into position. We took the knee into full extension, and then back in a flexion making sure we had removed any excess methylmethacrylate. The patellar component was then cemented down and secured with clamp. Excess methylmethacrylate removed. We kept the knee in full extension, patellar clamp in position until methylmethacrylate had hardened. Once it had hardened the patellar clamp was removed. The knee was taken through full range of motion. The patella tracked nicely. There was good soft tissue balancing. The tourniquet was now released. Additional hemostasis was achieved via electrocautery. A second gram of TXA was given. The wound again was irrigated with pulse lavage mechanical irrigation. The superficial soft tissues were infiltrated local analgesic. The extensor mechanism was repaired with Vicryl. We checked the repair with range of motion and it was stable. The subcutaneous soft tissues were repaired with Vicryl in layers. The skin was approximated with pernio/Dermabond. Sterile dressings were applied followed by loose web roll and Lauro bandage. The patient was transferred to a bed, and taken to recovery in stable and satisfactory condition. Thierry VERGARA assisted with this complex procedure.
[2018-09-14 17:00] LABS: Glucose,Whole Blood 148 mg/dL (75-99)
--- NOTE | 2018-09-14 17:28 | XR ---
EXAMINATION TYPE: XR knee limited LT DATE OF EXAM: 09/14/2018 COMPARISON: NONE HISTORY: Postop TECHNIQUE: 2 views FINDINGS: There is left knee prosthesis. Components are in anatomic position. I see no sign of joint effusion. IMPRESSION: No complicating process seen.
[2018-09-14] MEDS: traMADol 50 MG TAB PO SCH ×2 (18:31→22:49)
[2018-09-14 20:38] LABS: Glucose,Whole Blood 326 mg/dL (75-99)
[2018-09-14] MEDS ORDERED: SENNOSIDES-DOCUSATE SODIUM 1 EACH TAB PO SCH (21:00)
[2018-09-14] MEDS ORDERED: CHOLECALCIFEROL 1,000 UNIT TAB PO SCH (21:15)
[2018-09-14] MEDS ORDERED: diphenhydrAMINE 25 MG CAP PO SCH (21:15)
[2018-09-14] MEDS: ENOXAPARIN 30 MG/0.3 ML SYRINGE SQ SCH (21:53)
[2018-09-14] MEDS: CLINDAMYCIN 900 MG in DEXTROSE 5% IN WATER 50 ML IVPB SCH ×2 (22:49)
[2018-09-14] MEDS: INSULIN ASPART 100 UNIT/ML 1 ML 10 ML VIAL SQ SCH (22:51)
[2018-09-15] MEDS: CLINDAMYCIN 900 MG in DEXTROSE 5% IN WATER 50 ML IVPB SCH ×2 (03:17)
[2018-09-15] MEDS: LACTATED RINGERS 1,000 ML IV SCH ×2 (05:13)
[2018-09-15] MEDS ORDERED: LEVOTHYROXINE 25 MCG TAB PO SCH (06:30)
[2018-09-15 07:11] LABS: Glucose,Whole Blood 185 mg/dL (75-99)
[2018-09-15 07:25] LABS: Basophils % (A) 0 %; Eosinophils % (A) 0 %; HCT 32.7 % (34.0-46.0); HGB 10.8 gm/dL (11.4-16.0); Lymphocytes # (A) 1.5 k/uL (1.0-4.8); Lymphocytes % (A) 14 %; MCH 30.7 pg (25.0-35.0); MCV 93.2 fL (80.0-100.0); Mean Platelet Volume 8.3; Monocytes # (A) 0.8 k/uL (0-1.0); Monocytes % (A) 8 %; Neutrophils # (A) 7.9 k/uL (1.3-7.7); Neutrophils % (A) 76 %; Platelet Count 179 k/uL (150-450); RBC 3.51 m/uL (3.80-5.40); RDW 13.4 % (11.5-15.5); WBC 10.4 k/uL (3.8-10.6)
[2018-09-15] MEDS ORDERED: metFORMIN 500 MG TAB PO SCH (07:30)
[2018-09-15 07:50] VITALS: BP 121/71; PULSE 66; RESP 16; TEMP 97.7
[2018-09-15] MEDS: ENOXAPARIN 30 MG/0.3 ML SYRINGE SQ SCH (07:54)
[2018-09-15] MEDS: INSULIN ASPART 100 UNIT/ML 1 ML 10 ML VIAL SQ SCH ×2 (07:54→15:42)
[2018-09-15] MEDS: traMADol 50 MG TAB PO SCH ×2 (07:55→15:11)
[2018-09-15] MEDS ORDERED: MELOXICAM 7.5 MG TAB PO SCH (09:00)
[2018-09-15] MEDS ORDERED: busPIRone HCl 5 MG TAB PO SCH (09:00)
[2018-09-15] MEDS ORDERED: CHOLECALCIFEROL 1,000 UNIT TAB PO SCH (09:00)
[2018-09-15 12:01] LABS: Glucose,Whole Blood 129 mg/dL (75-99)
[2018-09-15] MEDS ORDERED: ATORVASTATIN 40 MG TAB PO SCH (12:30)
[2018-09-15] MEDS ORDERED: DULoxetine HCL 60 MG CAPSULE.DR PO SCH (12:30)
[2018-09-15] MEDS ORDERED: LOSARTAN 50 MG TAB PO SCH (12:30)
[2018-09-15] MEDS ORDERED: METOPROLOL SUCCINATE (ER) 25 MG TAB.ER.24H PO SCH (12:30)
[2018-09-15] MEDS ORDERED: LINAGLIPTIN 5 MG TABLET PO SCH (12:30)
--- NOTE | 2018-09-15 12:47 | P.PN ---
Progress Note - Text Anesthesia POD 1. Patient is status post left TKR under spinal anesthesia with a left adductor canal catheter placed for postoperative pain relief. With ropivacaine 0.2% running at 8 cc's per hour, the patient's VAS is (0, 2). Catheter site is clean dry and intact.
--- NOTE | 2018-09-15 12:50 | P.PN ---
Subjective Progress Note Date: 09/15/18 Principal diagnosis: Status post left total knee arthroplasty Patient evaluated today at bedside, she is resting comfortably. She's ambulated with therapy. Her pain is well-controlled. She denies any chest pain or shortness of breath. Objective - Vital Signs Vital signs: Vital Signs Temp 97.7 F 09/15/18 07:49 Pulse 66 09/15/18 07:49 Resp 16 09/15/18 07:49 BP 121/71 09/15/18 07:49 Pulse Ox 100 09/15/18 07:49 Intake & Output 09/14/18 09/15/18 09/15/18 18:59 06:59 18:59 Intake Total 1857 1900 596 Output Total 60 Balance 1797 1900 596 Intake: IV 1857 Intake, IV Titration 820 Amount Clindamycin 900 mg In 100 Dextrose 5% in Water 50 ml @ 50 mls/hr IVPB Q6H G[facility]FFIN Rx#:[id number] Lactated Ringers 1,000 ml 720 @ 80 mls/hr IV .[id number] GRIFFIN Rx#:[id number] Oral 1080 596 Output: Estimated Blood Loss 60 Other: Voiding Method Toilet # Voids 2 - Exam Left lower extremity: Incision is clean, dry, and intact. The exofin fusion tape is in good condition. There is minimal soft tissue swelling and ecchymosis surrounding the medial and lateral aspects of the incision. Calf is soft, no tenderness with palpation. Plantar flexion, dorsiflexion, EHL, FHL are intact. Sensory exam to light touch throughout the extremity is intact, dorsal pedis pulses 2+. - Labs CBC & Chem 7: 09/15/18 06:41 Labs: Abnormal Lab Results - Last 24 Hours (Table) 09/14/18 09/14/18 09/14/18 Range/Units 13:44 16:57 20:36 RBC (3.80-5.40) m/uL Hgb (11.4-16.0) gm/dL Hct (34.0-46.0) % Neutrophils # (1.3-7.7) k/uL POC Glucose (mg/dL) 139 H 148 H 326 H (75-99) mg/dL 09/15/18 09/15/18 09/15/18 Range/Units 06:41 07:10 12:00 RBC 3.51 L (3.80-5.40) m/uL Hgb 10.8 L (11.4-16.0) gm/dL Hct 32.7 L (34.0-46.0) % Neutrophils # 7.9 H (1.3-7.7) k/uL POC Glucose (mg/dL) 185 H 129 H (75-99) mg/dL Assessment and Plan Plan: Assessment: Postop day 1 status post left total knee arthroplasty Plan: Pain control, we'll discharge home on oral medication GI and DVT prophylaxis, aspirin 81 mg twice a day Wound care instructions discussed Home physical therapy and nursing after discharge Medical recommendations Discharge planning: Patient will be discharged home today Time with Patient: Less than 30
--- NOTE | 2018-09-15 12:56 | P.DS ---
Providers Date of admission: 09/14/18 12:57 Expected date of discharge: 09/15/18 Attending physician: Mike Stoddard Consults: 09/14/18 16:20 Consult Physician Routine Consulting Provider: Humza Tolentino Reason/Comments: Medical management Do you want consulting provider notified?: Yes 09/14/18 18:31 Consult Physician Routine Consulting Provider: Ave Wetzel Consult Reason/Comments: medical management Do you want consulting provider notified?: Already Contacted Primary care physician: Humza Tolentino Hospital Course: Date of admission: 09/14/2018 Date of discharge: 09/15/2018 Admission diagnosis: Status post left total knee arthroplasty Discharge diagnosis: Same Attending physician: Dr. Stoddard Surgical procedures: Left total knee arthroplasty Brief history: Patient is a 68-year-old female with a history of progressive primary left knee osteoarthritis. At this point patient has failed conservative treatment measures and has opted to proceed with a elective left total knee arthroplasty. Hospital course: Details of patient's surgery can be found in operative report. Patient tolerated the procedure well and was subsequently transported to orthopedic floor. Patient's orthopeidc and medical care was provided daily. Patient had daily laboratory tests performed for evaluation of overall blood counts. Patient had daily physical therapy to include strengthening range of motion as well as education with walker ambulation. Patient had daily CPM usage as part of their physical therapy program. Patient was treated with Lovenox for their postoperative DVT prophylaxis during their inpatient stay. Patient was noted to have a relatively uneventful postoperative course. Patient reported satisfactory pain control with oral pain medications by postoperative day 0. Patient showed satisfactory progress with physical therapy. Patient moved steadily through the program and had no difficulty meeting the goals by postoperative day 1. Given patient's otherwise satisfactory course and having met physical therapy goals, plan is to discharge patient home on postoperative day 1. Discharge condition/disposition: Patient will be discharged home in stable condition. Discharge medications: Instructions are given on resumption of patient's normal daily medications per primary care recommendation, in addition patient will be prescribed . Discharge instructions: 1. Wound care and infection precautions, keep incision dry and covered while showering, no lotions, creams, moisturizers. No soaking, tubs, pools, hottubs. Do not scrub over the incision. 2. Weight-bear as tolerated with walker / cane until follow-up. 3. Ice and elevate when necessary. Do not exceed 20 minutes per hour with ice pack. 4. Utilize compression sleeve until seen at first follow up appointment. 5. Visiting nursing care. 6. Home physical therapy including home CPM. 7. Pain meds and anticoagulants per prescription. 8. Pain medication has potential to cause constipation. Increase oral fluid and fiber intake. Contact primary care provider if you have not had a bowel movement within 48 hours after discharge 9. No anti-inflammatory medication until discussed at first post operative visit, this including Motrin, Aleve, Mobic, Diclofenac. 10. Follow up in office at 2 weeks postop with Thierry Matthews PA-C 11. Follow up with your primary care doctor 7-10 days after discharge. 12. Contact [facility] with any questions, . Procedures: Left total knee arthroplasty Patient Condition at Discharge: Good Plan - Discharge Summary Discharge Rx Participant: No New Discharge Prescriptions: New Aspirin [Adult Low Dose Aspirin EC] 81 mg PO BID #60 tablet. Hydrocodone/Acetaminophen [[place] 5-325] 1 each PO Q6HR PRN #28 tab PRN Reason: Pain traMADol HCl [Ultram] 50 mg PO Q6H PRN #28 tab PRN Reason: Pain No Action Losartan [Cozaar] 50 mg PO AC-LUNCH Hydrochlorothiazide [Hydrodiuril] 25 mg PO AC-LUNCH Levothyroxine Sodium [Synthroid] 25 mcg PO QAM Metoprolol Succinate 25 mg PO AC-LUNCH sitaGLIPtin [Januvia] 100 mg PO AC-LUNCH DULoxetine HCL [Cymbalta] 120 mg PO AC-LUNCH Rosuvastatin [Crestor] 20 mg PO AC-LUNCH busPIRone HCL 15 mg PO DAILY metFORMIN HCL ER [Glucophage Xr] 1,000 mg PO AC-BID Cholecalciferol (Vitamin D3) [Vitamin D3] 2,000 unit PO HS Cholecalciferol (Vitamin D3) [Vitamin D3] 4,000 unit PO QAM Triamcinolone 0.025% Cream [Kenalog 0.025% Cream] 1 applic TOPICAL BID PRN PRN Reason: Skin Irritation diphenhydrAMINE HCL [Benadryl] 50 mg PO HS Turmeric Root Extract [Turmeric] 500 mg PO DAILY Discharge Medication List Hydrochlorothiazide [Hydrodiuril] 25 mg PO AC-LUNCH 06/07/14 [History] Levothyroxine Sodium [Synthroid] 25 mcg PO QAM 06/07/14 [History] Losartan [Cozaar] 50 mg PO AC-LUNCH 06/07/14 [History] Metoprolol Succinate 25 mg PO AC-LUNCH 06/07/14 [History] DULoxetine HCL [Cymbalta] 120 mg PO AC-LUNCH 10/27/17 [History] Rosuvastatin [Crestor] 20 mg PO AC-LUNCH 10/27/17 [History] sitaGLIPtin [Januvia] 100 mg PO AC-LUNCH 10/27/17 [History] Cholecalciferol (Vitamin D3) [Vitamin D3] 2,000 unit PO HS 11/29/17 [History] Cholecalciferol (Vitamin D3) [Vitamin D3] 4,000 unit PO QAM 11/29/17 [History] Triamcinolone 0.025% Cream [Kenalog 0.025% Cream] 1 applic TOPICAL BID PRN 11/29 [History] busPIRone HCL 15 mg PO DAILY 11/29/17 [History] metFORMIN HCL ER [Glucophage Xr] 1,000 mg PO AC-BID 11/29/17 [History] Turmeric Root Extract [Turmeric] 500 mg PO DAILY 09/09/18 [History] diphenhydrAMINE HCL [Benadryl] 50 mg PO HS 09/09/18 [History] Aspirin [Adult Low Dose Aspirin EC] 81 mg PO BID #60 tablet. 09/15/18 [Rx] Hydrocodone/Acetaminophen [[place] 5-325] 1 each PO Q6HR PRN #28 tab 09/15/18 [Rx] traMADol HCl [Ultram] 50 mg PO Q6H PRN #28 tab 09/15/18 [Rx] Follow up Appointment(s)/Referral(s): [facility] [NON-STAFF] - As Needed Rahul Matthews PAC [PHYSICIAN STORE HOST] - 09/30/18 2:50 pm Activity/Diet/Wound Care/Special Instructions: Orthopedic Discharge Instructions: 1. Wound care and infection precautions, keep incision dry and covered while showering, no lotions, creams, moisturizers. No soaking, pools, hot tubs. Do not scrub over incision. 2. Weight-bear as tolerated with walker / cane until follow-up. 3. Ice and elevate when necessary. Do not exceed 20 minutes per hour with ice pack. 4. Utilize compression sleeve until seen at first follow up appointment. 5. Pain meds and anticoagulants per prescription. 6. Pain medication has potential to cause constipation. Increase oral fluid and fiber intake. Contact primary care provider if you have not had a bowel movement within 48 hours after discharge. 7. No anti-inflammatory medication until discussed at first post operative visit, this including Motrin, Aleve, Mobic, Diclofenac. 8. Follow up in office at 2 weeks postop with Thierry Matthews PA-C 9. Follow up with your primary care doctor 7-10 days after discharge. 10. Contact [facility] with any questions, . [facility] will see you in 24-48 hours after your discharge. They can be reached at [phone] for any questions. Discharge Disposition: HOME WITH HOME HEALTH SERVICES
--- NOTE | 2018-09-15 13:56 | P.CONS ---
History of Present Illness - Reason for Consult Consult date: 09/14/18 medical management - Chief Complaint Left total knee replacement - History of Present Illness This Is a pleasant 68-year-old female patient of Dr. Tolentino. She has underlying history of diabetes mellitus type 2, hyperlipidemia, hypertension, osteoarthritis and obstructive sleep apnea on BiPAP machine admitted to the hospital for elective left total knee replacement performed on 09/14/2018. Patient is currently doing well without any significant perioperative complications, patient does not have no lightheadedness no dizziness, no other or GI complaints including chest pain or shortness of breath or palpitations. She currently is receiving aspirin for DVT prophylaxis incentive spirometry program, and bowel program as well. Review of Systems Constitutional: Reports as per HPI, Denies anorexia, Denies chills, Denies chronic headaches, Denies chronic pain, Denies daytime sleepiness, Denies fatigue, Denies fever, Denies lethargy, Denies malaise, Denies night sweats, Denies poor appetite, Denies sweats, Denies weakness, Denies weight gain, Denies weight loss Ears, nose, mouth and throat: Reports as per HPI Cardiovascular: Reports as per HPI, Denies chest pain, Denies claudication, Denies decreased exercise tolerance, Denies dyspnea on exertion, Denies edema, Denies high blood pressure, Denies irregular heart beat, Denies leg edema, Denies lightheadedness, Denies orthopnea, Denies palpitations, Denies paroxysmal nocturnal dyspnea, Denies phlebitis, Denies rapid heart beat, Denies shortness of breath, Denies syncope Respiratory: Reports as per HPI, Denies congestion, Denies cough, Denies cough with sputum, Denies dyspnea, Denies excessive sputum, Denies hemoptysis, Denies home oxygen, Denies pain, Denies pain on inspiration, Denies pleurisy, Denies respiratory infections, Denies sleep apnea, Denies snoring, Denies wheezing Gastrointestinal: Reports as per HPI, Denies abdominal pain, Denies belching, Denies bloating, Denies BRBPR, Denies change in bowel habits, Denies coffee ground emesis, Denies constipation, Denies diarrhea, Denies dyspepsia, Denies early satiety, Denies excessive gas, Denies heartburn, Denies hematemesis, Denies hematochezia, Denies indigestion, Denies jaundice, Denies lactose intolerance, Denies loss of appetite, Denies melena, Denies nausea, Denies vomiting Genitourinary: Reports as per HPI Menstruation: Reports as per HPI, Denies amenorrhea, Denies amenorrhea on BC, Denies currently menstrual, Denies cycle < 21 days, Denies cycle > 35 days, Denies cycle variable, Denies menses 1-7 days, Denies menses 8 or > days, Denies menses variable, Denies period heavy, Denies period light, Denies period normal, Denies period spotting, Denies post hysterectomy, Denies postmenopausal , Denies premenarcheal Musculoskeletal: Reports as per HPI, Reports limitation of motion, Denies arm numbness/tingling, Denies atrophy, Denies fractures, Denies frequent falls, Denies gait dysfunction, Denies hot joints, Denies leg numbness/tingling, Denies loss of height, Denies low back pain, Denies morning stiffness, Denies muscle cramps, Denies muscle weakness, Denies myalgias, Denies neck pain, Denies neck stiffness, Denies prior amputations, Denies redness of joints, Denies shooting arm pain, Denies shooting leg pain Integumentary: Reports as per HPI Neurological: Reports as per HPI Psychiatric: Reports as per HPI Endocrine: Reports as per HPI Hematologic/Lymphatic: Reports as per HPI, Denies easy bleeding, Denies easy bruising, Denies lymphadenopathy, Denies lymphedema, Denies thrombophilia Allergic/Immunologic: Reports as per HPI, Denies allergic rhinitis, Denies anaphylaxis, Denies angioedema, Denies gluten intolerance, Denies persistent infections, Denies seasonal allergies, Denies urticaria, Denies wheezing Past Medical History Past Medical History: Diabetes Mellitus, Hyperlipidemia, Hypertension, Osteoarthritis (OA), Sleep Apnea/CPAP/BIPAP, Thyroid Disorder Additional Past Medical History / Comment(s): uses CPAP Last Myocardial Infarction Date:: unknown History of Any Multi-Drug Resistant Organisms: None Reported Past Surgical History: Cholecystectomy, Heart Catheterization, Tubal Ligation Additional Past Surgical History / Comment(s): EGD, lap. jen fundoplication Past Anesthesia/Blood Transfusion Reactions: Previous Problems w/ Anesthesia Additional Past Anesthesia/Blood Transfusion Reaction / Comm: difficulty waking up after anes. @times Smoking Status: Never smoker - Past Family History Father Family Medical History: Congestive Heart Failure (CHF), Diabetes Mellitus Mother Family Medical History: COPD, Hypertension Brother(s) Family Medical History: Coronary Artery Disease (CAD), Diabetes Mellitus Medications and Allergies Home Medications Medication Instructions Recorded Confirmed Type Hydrochlorothiazide [Hydrodiuril] 25 mg PO AC-LUNCH 06/07/14 09/14/18 History Levothyroxine Sodium [Synthroid] 25 mcg PO QAM 06/07/14 09/14/18 History Losartan [Cozaar] 50 mg PO AC-LUNCH 06/07/14 09/14/18 History Metoprolol Succinate 25 mg PO AC-LUNCH 06/07/14 09/14/18 History DULoxetine HCL [Cymbalta] 120 mg PO AC-LUNCH 10/27/17 09/14/18 History Rosuvastatin [Crestor] 20 mg PO AC-LUNCH 10/27/17 09/14/18 History sitaGLIPtin [Januvia] 100 mg PO AC-LUNCH 10/27/17 09/14/18 History Cholecalciferol (Vitamin D3) 2,000 unit PO HS 11/29/17 09/14/18 History [Vitamin D3] Cholecalciferol (Vitamin D3) 4,000 unit PO QAM 11/29/17 09/14/18 History [Vitamin D3] Triamcinolone 0.025% Cream 1 applic TOPICAL BID PRN 11/29/17 09/14/18 History [Kenalog 0.025% Cream] busPIRone HCL 15 mg PO DAILY 11/29/17 09/14/18 History metFORMIN HCL ER [Glucophage Xr] 1,000 mg PO AC-BID 11/29/17 09/14/18 History Turmeric Root Extract [Turmeric] 500 mg PO DAILY 09/09/18 09/14/18 History diphenhydrAMINE HCL [Benadryl] 50 mg PO HS 09/09/18 09/14/18 History Aspirin [Adult Low Dose Aspirin EC] 81 mg PO BID #60 tablet. 09/15/18 Rx Hydrocodone/Acetaminophen [[place] 1 each PO Q6HR PRN #28 tab 09/15/18 Rx 5-325] traMADol HCl [Ultram] 50 mg PO Q6H PRN #28 tab 09/15/18 Rx Allergies Allergy/AdvReac Type Severity Reaction Status Date / Time Penicillins Allergy Severe Dyspnea Verified 09/14/18 20:20 Physical Exam Vitals: Vital Signs Temp Pulse Resp BP BP Pulse Ox 09/14/18 18:00 65 16 116/55 96 09/14/18 17:45 66 16 120/58 94 L 09/14/18 17:30 75 16 123/61 95 09/14/18 17:15 64 16 122/59 97 09/14/18 17:00 65 16 116/59 97 09/14/18 16:45 63 16 121/57 96 09/14/18 16:38 98.6 F 62 14 113/56 100 09/14/18 14:29 54 L 18 124/66 100 09/14/18 13:24 98.1 F 60 18 162/71 96 Intake and Output 09/14/18 09/14/18 09/14/18 06:59 14:59 22:59 Intake Total 1056 801 Output Total 60 Balance 1056 741 Intake: IV 1056 801 Output: Estimated Blood Loss 60 - Constitutional General appearance: cooperative, no acute distress, obese - EENT Eyes: anicteric sclerae, PERRLA, dentition normal, normal appearance ENT: hearing grossly normal, NA/AT, normal oropharynx - Neck Neck: no lymphadenopathy, normal ROM, no other, no rigidity, no stridor, no thyromegaly - Cardiovascular Rhythm: regular Heart sounds: normal: S1, S2 Abnormal Heart Sounds: no systolic murmur, no diastolic murmur, no rub, no S3 Gallop, no S4 Gallop, no click, no other - Gastrointestinal General gastrointestinal: normal bowel sounds - Integumentary Integumentary: decreased turgor, normal, normal turgor - Neurologic Neurologic: CNII-XII intact - Musculoskeletal Musculoskeletal: strength equal bilaterally - Psychiatric Psychiatric: A&O x's 3, appropriate affect, intact judgment & insight Results CBC & Chem 7: 09/15/18 06:41 Labs: Abnormal Lab Results - Last 24 Hours (Table) 09/14/18 09/14/18 09/14/18 Range/Units 13:44 16:57 20:36 POC Glucose (mg/dL) 139 H 148 H 326 H (75-99) mg/dL Laboratory Results POC Glucose (mg/dL) 326 mg/dL (75-99) H 09/14/18 20:36 POC [employer] Aixa Marin 09/14/18 20:36 Assessment and Plan Plan: 1. left total knee arthroplasty performed 09/14/2018, without any perioperative complications. Patient is is doing well during therapies, blood loss expected, will monitor hemoglobin Blood sugars are stable, patient's to receive aspirin for DVT prophylaxis, and GI program as well as incentive spirometry, therapies while in the hospital. 2. Diabetes mellitus type 2 on Januvia, no changes made continue on metformin 1000 mg twice a day 2. Hypothyroidism on levothyroxine 25 g daily 4. Hypertension on losartan 50 mg daily metoprolol 25 mg daily diarrheal metoprolol 25 mg daily 5. Obstructive sleep apnea on CPAP machine for which she brought from home, continue treatment GI prophylaxis DVT prophylaxis
--- NOTE | 2018-09-15 13:58 | P.PN ---
Subjective Progress Note Date: 09/15/18 Principal diagnosis: Left total knee arthroplasty This Is a pleasant 68-year-old female patient of Dr. Tolentino. She has underlying history of diabetes mellitus type 2, hyperlipidemia, hypertension, osteoarthritis and obstructive sleep apnea on BiPAP machine admitted to the hospital for elective left total knee replacement performed on 09/14/2018. Patient is currently doing well without any significant perioperative complications, patient does not have no lightheadedness no dizziness, no other or GI complaints including chest pain or shortness of breath or palpitations. She currently is receiving aspirin for DVT prophylaxis incentive spirometry program, and bowel program as well. 09/15, patient is doing very well without any problems, no constipation or lightheadedness, patient does not have any special no respiratory events. No hypoxemia overnight, hemoglobin currently at 10.8 blood sugars 148-320, anticipating home discharge therapies today stable for discharge Objective - Vital Signs Vital signs: Vital Signs Temp 97.7 F 09/15/18 07:49 Pulse 66 09/15/18 07:49 Resp 16 09/15/18 07:49 BP 121/71 09/15/18 07:49 Pulse Ox 100 09/15/18 07:49 Intake & Output 09/14/18 09/15/18 09/15/18 18:59 06:59 18:59 Intake Total 1857 1900 596 Output Total 60 Balance 1797 1900 596 Intake: IV 1857 Intake, IV Titration 820 Amount Clindamycin 900 mg In 100 Dextrose 5% in Water 50 ml @ 50 mls/hr IVPB Q6H GRIFFIN Rx#:[id number] Lactated Ringers 1,000 ml 720 @ 80 mls/hr IV .[id number] GRIFFIN Rx#:[id number] Oral 1080 596 Output: Estimated Blood Loss 60 Other: Voiding Method Toilet # Voids 2 - Constitutional General appearance: Present: cooperative, no acute distress, obese - EENT Eyes: Present: anicteric sclerae, EOMI, dentition normal, normal appearance ENT: Present: hearing grossly normal, NA/AT, normal oropharynx - Neck Neck: Present: normal ROM - Respiratory Respiratory: bilateral: CTA, negative: diminished, dullness, rales, prolonged expiration, prolonged inspiration - Cardiovascular Rhythm: regular Heart sounds: normal: S1, S2 Abnormal Heart Sounds: Absent: systolic murmur, diastolic murmur, rub, S3 Gallop , S4 Gallop, click, other - Gastrointestinal General gastrointestinal: Present: normal bowel sounds, soft - Integumentary Integumentary: Present: normal, normal turgor - Neurologic Neurologic: Present: CNII-XII intact - Musculoskeletal Musculoskeletal: Present: strength equal bilaterally - Psychiatric Psychiatric: Present: A&O x's 3, appropriate affect, intact judgment & insight - Labs CBC & Chem 7: 09/15/18 06:41 Labs: Abnormal Lab Results - Last 24 Hours (Table) 09/14/18 09/14/18 09/14/18 Range/Units 13:44 16:57 20:36 RBC (3.80-5.40) m/uL Hgb (11.4-16.0) gm/dL Hct (34.0-46.0) % Neutrophils # (1.3-7.7) k/uL POC Glucose (mg/dL) 139 H 148 H 326 H (75-99) mg/dL 09/15/18 09/15/18 09/15/18 Range/Units 06:41 07:10 12:00 RBC 3.51 L (3.80-5.40) m/uL Hgb 10.8 L (11.4-16.0) gm/dL Hct 32.7 L (34.0-46.0) % Neutrophils # 7.9 H (1.3-7.7) k/uL POC Glucose (mg/dL) 185 H 129 H (75-99) mg/dL Assessment and Plan Plan: 1. left total knee arthroplasty performed 09/14/2018, without any perioperative complications. Patient is is doing well during therapies, blood loss expected, current hemoglobin is 10.8. Blood sugars are stable, patient's to receive aspirin for DVT prophylaxis, and GI program as well as incentive spirometry, therapies while in the hospital. 2. Diabetes mellitus type 2 on Januvia, no changes made continue on metformin 1000 mg twice a day 2. Hypothyroidism on levothyroxine 25 g daily 4. Hypertension on losartan 50 mg daily metoprolol 25 mg daily diarrheal metoprolol 25 mg daily 5. Obstructive sleep apnea on CPAP machine for which she brought from home, continue treatment GI prophylaxis DVT prophylaxis
[2018-09-15 16:03] LABS: Hemoglobin A1C 7.2 % (4.0-6.0)
== END 2018-09-15 16:27 | disposition home health service (06) | DRG 470 ==
LOC: 2ORMAIN 12:57 → 4SSUR 16:14
PROVIDERS: ADMIT Orthopaedic Surgery; ATTEND Orthopaedic Surgery
PROC: 0SRD0J9 Replacement of Left Knee Joint with Synthetic Substitute, Cemented, Open Approach (ICD-10-PCS; principal; 2018-09-14 15:40)
DX: M17.12 Unilateral primary osteoarthritis, left knee (principal); E78.5 Hyperlipidemia, unspecified; G47.33 Obstructive sleep apnea (adult) (pediatric); I10 Essential (primary) hypertension; E07.9 Disorder of thyroid, unspecified; F41.9 Anxiety disorder, unspecified; F32.9 Major depressive disorder, single episode, unspecified; K21.9 Gastro-esophageal reflux disease without esophagitis; E11.51 Type 2 diabetes mellitus with diabetic peripheral angiopathy without gangrene; I25.10 Atherosclerotic heart disease of native coronary artery without angina pectoris; E78.00 Pure hypercholesterolemia, unspecified; R53.82 Chronic fatigue, unspecified; E66.9 Obesity, unspecified; Z68.34 Body mass index [BMI] 34.0-34.9, adult; Z79.82 Long term (current) use of aspirin; Z79.84 Long term (current) use of oral hypoglycemic drugs; Z79.890 Hormone replacement therapy; Z98.51 Tubal ligation status; Z90.49 Acquired absence of other specified parts of digestive tract; Z88.0 Allergy status to penicillin; Z82.49 Family history of ischemic heart disease and other diseases of the circulatory system; Z82.5 Family history of asthma and other chronic lower respiratory diseases; Z82.61 Family history of arthritis; Z82.0 Family history of epilepsy and other diseases of the nervous system
CPT/HCPCS: 83036; 85025; 88300

== ENCOUNTER 2018-10-27 10:52 | Emergency (ER) | payer MEDICARE, OTHER ==
[2018-10-27] MEDS ORDERED: SODIUM CHLORIDE 0.9% 500 ML 500 ML IV STA (11:14)
[2018-10-27] MEDS ORDERED: LORazepam 2 MG/ML INJ IV STA (11:17)
--- NOTE | 2018-10-27 11:45 | ED ---
General Adult HPI - General Chief complaint: Shortness of Breath Stated complaint: racing heart/shaky/SOB Time Seen by Provider: 10/27/18 11:00 Source: patient, RN notes reviewed Mode of arrival: wheelchair Limitations: no limitations - History of Present Illness Initial comments: This is a 68-year-old female who presents emergency Department complaining of having shortness of breath becoming sweaty and feeling like she is going to . Patient states she's had episodes similar to this for 2 years. Patient states they never can find anything wrong with her. Patient today states this is a little worse she never felt like she was going to before. Patient denies any chest pain or palpitations. Patient denies lightheadedness or dizziness per patient denies any numbness or weakness. Patient denies any abdominal pain patient denies nausea vomiting diarrhea. Patient denies any swelling to the legs or calf tenderness. Patient denies any recent fever chills or cough. - Related Data Home Medications Medication Instructions Recorded Confirmed Hydrochlorothiazide [Hydrodiuril] 25 mg PO DAILY 06/07/14 10/27/18 Levothyroxine Sodium [Synthroid] 25 mcg PO QAM 06/07/14 10/27/18 Losartan [Cozaar] 50 mg PO DAILY 06/07/14 10/27/18 Metoprolol Succinate 25 mg PO DAILY 06/07/14 10/27/18 DULoxetine HCL [Cymbalta] 120 mg PO DAILY 10/27/17 10/27/18 Rosuvastatin [Crestor] 20 mg PO DAILY 10/27/17 10/27/18 sitaGLIPtin [Januvia] 100 mg PO DAILY 10/27/17 10/27/18 Cholecalciferol (Vitamin D3) 4,000 unit PO DAILY 11/29/17 10/27/18 [Vitamin D3] Triamcinolone 0.025% Cream 1 applic TOPICAL BID PRN 11/29/17 10/27/18 [Kenalog 0.025% Cream] busPIRone HCL 15 mg PO DAILY 11/29/17 10/27/18 metFORMIN HCL ER [Glucophage Xr] 1,000 mg PO AC-BID 11/29/17 10/27/18 Turmeric Root Extract [Turmeric] 500 mg PO DAILY 09/09/18 10/27/18 diphenhydrAMINE HCL [Benadryl] 50 mg PO HS 09/09/18 10/27/18 Previous Rx's Medication Instructions Recorded Aspirin [Adult Low Dose Aspirin EC] 81 mg PO BID #60 tablet. 09/15/18 Allergies Allergy/AdvReac Type Severity Reaction Status Date / Time Penicillins Allergy Severe Dyspnea Verified 10/27/18 11:44 Review of Systems ROS Statement: Those systems with pertinent positive or pertinent negative responses have been documented in the HPI. ROS Other: All systems not noted in ROS Statement are negative. Past Medical History Past Medical History: Diabetes Mellitus, Hyperlipidemia, Hypertension, Osteoarthritis (OA), Sleep Apnea/CPAP/BIPAP, Thyroid Disorder Additional Past Medical History / Comment(s): uses CPAP Last Myocardial Infarction Date:: unknown History of Any Multi-Drug Resistant Organisms: None Reported Past Surgical History: Cholecystectomy, Heart Catheterization, Tubal Ligation Additional Past Surgical History / Comment(s): EGD, lap. jen fundoplication Past Anesthesia/Blood Transfusion Reactions: Previous Problems w/ Anesthesia Additional Past Anesthesia/Blood Transfusion Reaction / Comment(s): difficulty waking up after anes. @times Past Psychological History: Depression Smoking Status: Never smoker - Past Family History Father Family Medical History: Congestive Heart Failure (CHF), Diabetes Mellitus Mother Family Medical History: COPD, Hypertension Brother(s) Family Medical History: Coronary Artery Disease (CAD), Diabetes Mellitus General Exam - General Exam Comments Initial Comments: GENERAL: Patient is well-developed and well-nourished. Patient is nontoxic and well- hydrated and is in mild distress. Patient is also very anxious and hyperventilating. ENT: Neck is soft and supple. No significant lymphadenopathy is noted. Oropharynx is clear. Moist mucous membranes. Neck has full range of motion without eliciting any pain. EYES: The sclera were anicteric and conjunctiva were pink and moist. Extraocular movements were intact and pupils were equal round and reactive to light. Eyelids were unremarkable. PULMONARY: Patient's lungs are clear bilaterally and the patient is hyperventilating. CARDIOVASCULAR: There is a regular rate and rhythm without any murmurs gallops or rubs. ABDOMEN: Soft and nontender with normal bowel sounds. No palpable organomegaly was noted. There is no palpable pulsatile mass. SKIN: Skin is clear with no lesions or rashes and otherwise unremarkable. NEUROLOGIC: Patient is alert and oriented x3. Cranial nerves II through XII are grossly intact. Motor and sensory are also intact. Normal speech, volume and content. Symmetrical smile. MUSCULOSKELETAL: Normal extremities with adequate strength and full range of motion. No lower extremity swelling or edema. No calf tenderness. LYMPHATICS: No significant lymphadenopathy is noted PSYCHIATRIC: Patient is very anxious. Limitations: no limitations Course Vital Signs 10/27/18 10:56 Temperature 97.5 F L Pulse Rate 95 Respiratory 25 H Rate Blood Pressure 117/41 O2 Sat by Pulse 99 Oximetry Medical Decision Making - Medical Decision Making EKG shows sinus rhythm at 79 bpm VA interval 222 QRS is 84 QT interval 36 QTC is 442. Patient's EKG shows no ST segment elevation or depression or T wave abnormalities are noted. I went into the room after the patient received Ativan and reevaluated her she was no longer anxious. Patient's d-dimer was elevated so I ordered a CAT scan of the chest. CT of the chest shows no pulmonary embolism I will back into reevaluate the patient patient was having no symptoms at this time - Lab Data Result diagrams: 10/27/18 11:27 10/27/18 11:27 Lab Results 10/27/18 10/27/18 10/27/18 Range/Units 11:27 11:27 11:27 WBC 7.1 (3.8-10.6) k/uL RBC 4.37 (3.80-5.40) m/uL Hgb 13.3 (11.4-16.0) gm/dL Hct 40.6 (34.0-46.0) % MCV 92.9 (80.0-100.0) fL MCH 30.5 (25.0-35.0) pg MCHC 32.9 (31.0-37.0) g/dL RDW 13.5 (11.5-15.5) % Plt Count 316 (150-450) k/uL Neutrophils % 63 % Lymphocytes % 28 % Monocytes % 6 % Eosinophils % 2 % Basophils % 1 % Neutrophils # 4.5 (1.3-7.7) k/uL Lymphocytes # 2.0 (1.0-4.8) k/uL Monocytes # 0.4 (0-1.0) k/uL Eosinophils # 0.1 (0-0.7) k/uL Basophils # 0.1 (0-0.2) k/uL PT 10.2 (9.0-12.0) sec INR 0.9 (<1.2) APTT 23.3 (22.0-30.0) sec D-Dimer 2.00 H (<0.60) mg/L FEU Sodium 138 (137-145) mmol/L Potassium 3.9 (3.5-5.1) mmol/L Chloride 101 (98-107) mmol/L Carbon Dioxide 22 (22-30) mmol/L Anion Gap 15 mmol/L BUN 23 H (7-17) mg/dL Creatinine 0.92 (0.52-1.04) mg/dL Est GFR (CKD-EPI)AfAm 74 (>60 ml/min/1.73 sqM) Est GFR (CKD-EPI)NonAf 64 (>60 ml/min/1.73 sqM) Glucose 243 H (74-99) mg/dL Calcium 10.0 (8.4-10.2) mg/dL Magnesium 1.6 (1.6-2.3) mg/dL Total Bilirubin 1.0 (0.2-1.3) mg/dL AST 26 (14-36) U/L ALT 27 (9-52) U/L Alkaline Phosphatase 44 (38-126) U/L Troponin I (0.000-0.034) ng/mL Total Protein 7.6 (6.3-8.2) g/dL Albumin 4.7 (3.5-5.0) g/dL 10/27/18 Range/Units 11:27 WBC (3.8-10.6) k/uL RBC (3.80-5.40) m/uL Hgb (11.4-16.0) gm/dL Hct (34.0-46.0) % MCV (80.0-100.0) fL MCH (25.0-35.0) pg MCHC (31.0-37.0) g/dL RDW (11.5-15.5) % Plt Count (150-450) k/uL Neutrophils % % Lymphocytes % % Monocytes % % Eosinophils % % Basophils % % Neutrophils # (1.3-7.7) k/uL Lymphocytes # (1.0-4.8) k/uL Monocytes # (0-1.0) k/uL Eosinophils # (0-0.7) k/uL Basophils # (0-0.2) k/uL PT (9.0-12.0) sec INR (<1.2) APTT (22.0-30.0) sec D-Dimer (<0.60) mg/L FEU Sodium (137-145) mmol/L Potassium (3.5-5.1) mmol/L Chloride (98-107) mmol/L Carbon Dioxide (22-30) mmol/L Anion Gap mmol/L BUN (7-17) mg/dL Creatinine (0.52-1.04) mg/dL Est GFR (CKD-EPI)AfAm (>60 ml/min/1.73 sqM) Est GFR (CKD-EPI)NonAf (>60 ml/min/1.73 sqM) Glucose (74-99) mg/dL Calcium (8.4-10.2) mg/dL Magnesium (1.6-2.3) mg/dL Total Bilirubin (0.2-1.3) mg/dL AST (14-36) U/L ALT (9-52) U/L Alkaline Phosphatase (38-126) U/L Troponin I 0.013 (0.000-0.034) ng/mL Total Protein (6.3-8.2) g/dL Albumin (3.5-5.0) g/dL Disposition Clinical Impression: Panic attack Disposition: HOME SELF-CARE Condition: Good Instructions (If sedation given, give patient instructions): Panic Attack (ED) , Anxiety (ED) Is patient prescribed a controlled substance at d/c from ED?: No Referrals: Humza Tolentino MD [Primary Care Provider] - 1-2 days Time of Disposition: 13:48
[2018-10-27 11:53] LABS: Basophils # (A) 0.1 k/uL (0-0.2); Basophils % (A) 1 %; Eosinophils # (A) 0.1 k/uL (0-0.7); Eosinophils % (A) 2 %; HCT 40.6 % (34.0-46.0); HGB 13.3 gm/dL (11.4-16.0); Lymphocytes % (A) 28 %; MCH 30.5 pg (25.0-35.0); MCHC 32.9 g/dL (31.0-37.0); MCV 92.9 fL (80.0-100.0); Mean Platelet Volume 7.3; Monocytes # (A) 0.4 k/uL (0-1.0); Monocytes % (A) 6 %; Neutrophils # (A) 4.5 k/uL (1.3-7.7); Neutrophils % (A) 63 %; Platelet Count 316 k/uL (150-450); RBC 4.37 m/uL (3.80-5.40); RDW 13.5 % (11.5-15.5); WBC 7.1 k/uL (3.8-10.6)
[2018-10-27 11:59] LABS: Albumin 4.7 g/dL (3.5-5.0); Magnesium 1.6 mg/dL (1.6-2.3); Potassium 3.9 mmol/L (3.5-5.1); Total Protein 7.6 g/dL (6.3-8.2)
--- NOTE | 2018-10-27 12:19 | XR ---
EXAMINATION TYPE: XR chest 2V DATE OF EXAM: 10/27/2018 COMPARISON: Prior chest x-ray 11/29/2017 HISTORY: Difficulty breathing, shortness of breath TECHNIQUE: Frontal and lateral views of the chest are obtained. FINDINGS: Patient is slightly rotated, there are cardiac leads. There is no focal air space opacity, pleural effusion, or pneumothorax seen. The cardiac silhouette size is within normal limits. The o sseous structures are intact. IMPRESSION: Interval improvement in aeration.
[2018-10-27 12:28] LABS: INR 0.9 (<1.2); Partial Thromboplastin Time 23.3 sec (22.0-30.0); Prothrombin Time 10.2 sec (9.0-12.0)
--- NOTE | 2018-10-27 13:43 | CT ---
EXAMINATION TYPE: CT chest angio for PE DATE OF EXAM: 10/27/2018 COMPARISON: HISTORY: difficulty breathing CT DLP: 397.1 mGycm Automated exposure control for dose reduction was used. CONTRAST: CT Chest for pulmonary embolism performed with with IV Contrast, patient injected with 100 mL of Isov ue 370. Three-dimensional reconstructions performed on an alternate workstation. FINDINGS: LUNGS: The lungs are grossly clear, there is no concerning parenchymal mass or nodule identified. T here is no pleural effusion or pneumothorax seen. The tracheobronchial tree is patent. MEDIASTINUM: There is satisfactory enhancement of the pulmonary artery and its branches, there is no CT evidence for pulmonary embolism. There are no greater than 1 cm hilar or mediastinal lymph nodes. No pericardial effusion is seen. AORTA: No additional significant abnormality is seen. For super aortic branch vessels are present. OTHER: Postop changes are noted at the gastroesophageal junction. Multiple hypodense foci within the liver statistically are likely to represent cysts. Thoracic spondylosis is noted incidentally. IMPRESSION: No evident pulmonary embolism.
[2018-10-27 14:08] VITALS: BP 102/68; PULSE 68; RESP 18; TEMP 98.5
== END 2018-10-27 14:08 | disposition home or self-care (01) ==
LOC: EC 10:52
DX: F41.0 Panic disorder [episodic paroxysmal anxiety] (principal); R79.1 Abnormal coagulation profile; E11.9 Type 2 diabetes mellitus without complications; E78.5 Hyperlipidemia, unspecified; I10 Essential (primary) hypertension; G47.30 Sleep apnea, unspecified; E07.9 Disorder of thyroid, unspecified; F32.9 Major depressive disorder, single episode, unspecified; Z88.0 Allergy status to penicillin; Z79.84 Long term (current) use of oral hypoglycemic drugs; Z79.890 Hormone replacement therapy; Z79.899 Other long term (current) drug therapy; Z95.818 Presence of other cardiac implants and grafts; Z99.89 Dependence on other enabling machines and devices; Z82.49 Family history of ischemic heart disease and other diseases of the circulatory system
CPT/HCPCS: 36415; 93005; 85379; 80053; 83735; 84484; 85025; 85610; 85730; 71046; 71275; 99285; 96374; J2060; Q9967

== ENCOUNTER → 2018-12-08 | Outpatient (CLI) | payer MEDICARE, OTHER | END | disposition home or self-care (01) | LOC: LABPAT 09:26 | PROVIDERS: ATTEND Orthopaedic Surgery | DX: Z01.812 Encounter for preprocedural laboratory examination (principal) | CPT/HCPCS: 87070 ==

== ENCOUNTER 2018-12-14 08:32 | Inpatient (IN) | payer MEDICARE, OTHER ==
--- NOTE | 2018-12-13 12:09 | HP ---
HISTORY AND PHYSICAL REASON FOR ADMISSION: Surgery scheduled 12/14/2018 Ceci Lorenzo is a 68-year-old patient seen with symptomatic right knee osteoarthritis. We discussed treatment options. She elected to proceed with right total knee arthroplasty. Consent regarding the procedure was obtained. PAST MEDICAL HISTORY: Hypertension, hyperlipidemia, hypothyroidism, [id number] diabetes. PAST SURGICAL HISTORY: Cholecystectomy, left total knee arthroplasty. MEDICATIONS: Buspirone, hydrochlorothiazide. Januvia, levothyroxine, losartan, metformin, metoprolol. ALLERGIES: PENICILLIN. SOCIAL HISTORY: She denies current tobacco use. PHYSICAL EXAMINATION: Evaluation of the right knee range of motion is -3 to 125 degrees. Tenderness along the medial joint line. Crepitus along the medial patellofemoral compartments. Pain with patellofemoral compression. Ligaments are stable. Hip rotation is without pain. Distal neurovascular exam is intact. RADIOGRAPHS: Radiographs of the right knee reveal severe medial and severe patellofemoral compartment osteoarthritis. IMPRESSION: 1. Right knee osteoarthritis. 2. Hypertension. 3. Hyperlipidemia. 4. Hypothyroidism. 5. [id number]-uvpkxgmqm diabetes. PLAN: Right total knee arthroplasty. Surgery 12/14/2018. MMODL / IJN: [id number] /
[~2018-12-14 08:32] MED LIST changes: -HYDROmorphone 0.5 MG/0.5 ML SYRINGE IVP PRN; -SCOPOLAMINE 1.5MG/72HR PATCH TRANSDERM ONE; +TRANEXAMIC ACID 1,000 MG in SODIUM CHLORIDE 0.9% 100 ML IVPB ONE; -TRANEXAMIC ACID 1,000 MG in SODIUM CHLORIDE 0.9% 50 ML IVPB ONE
[2018-12-14 09:08] LABS: Glucose,Whole Blood 138 mg/dL (75-99)
[2018-12-14] MEDS: LACTATED RINGERS 1,000 ML IV SCH ×5 (09:09→23:03)
[2018-12-14] MEDS ORDERED: DEXAMETHASONE SOD PHOSPHATE 10 MG/ML 1 ML VIAL IV ONE (09:15)
[2018-12-14] MEDS ORDERED: ONDANSETRON 4 MG/2 ML VIAL IVP ONE (09:15)
[2018-12-14] MEDS ORDERED: ROPIVACAINE 1,100 MG, SODIUM CHLORIDE 0.9% 500 ML 330 ML MISCELLANE PRN ×2 (09:33)
--- NOTE | 2018-12-14 09:33 | P.ONQ ---
Anesthesiology Proc Note - PNB - Peripheral Nerve Block Performed Right Adductor Canal Infusion Time Out Performed: Yes (915) Procedure Start Time: 09:16 Procedure Stop Time: :29 Indication: Acute Post-Operative Pain, Requested by physician (Dr Stoddard) Sedation Type: Sedate with meaningful contact maintained Preparation: Sterile Dressing Position: Supine Catheter: Indwelling Needle Types: On-Q Needle Size: 50mm (2") Needle Gauge: 20 Technique: Ultrasound (Image saved) Injectate: 0.5% Ropivacaine (see comment for volume) (30 mls) Blood Aspirated: No Pain Paresthesia on Injection Noted: No Resistance on Injection: Normal Events: Uneventful and Well Tolerated
[2018-12-14] MEDS ORDERED: ROPIVACAINE 246.25 MG, EPINEPHrine 0.5 MG, KETOROLAC 30 MG, cloNIDine HCL/PF 80 MCG, WA... MISCELLANE ONE ×5 (09:36)
[2018-12-14] MEDS ORDERED: fentaNYL (PF) 50 MCG/ML 2 ML AMP ONE (10:14)
[2018-12-14] MEDS ORDERED: MIDAZOLAM 2 MG/2 ML VIAL ONE (10:14)
[2018-12-14] MEDS ORDERED: PHENYLEPHRINE-0.9% NACL SYG 1 MG/10 ML SYRINGE ONE (10:14)
[2018-12-14] MEDS ORDERED: LACTATED RINGERS 1,000 ML IV ONE (10:55)
[2018-12-14] MEDS ORDERED: NALOXONE 0.4 MG/ML 1 ML VIAL IV PRN (12:05)
[2018-12-14] MEDS ORDERED: ONDANSETRON 4 MG/2 ML VIAL IVP PRN (12:05)
[2018-12-14] MEDS ORDERED: HYDROmorphone 0.5 MG/0.5 ML SYRINGE IVP PRN ×3 (12:05)
[2018-12-14] MEDS ORDERED: HYDROcodone/APAP 5-325MG 1 EACH TAB PO PRN (12:05)
--- NOTE | 2018-12-14 12:05 | P.OP ---
Date of Procedure: 12/14/18 Preoperative Diagnosis: Right knee osteoarthritis Postoperative Diagnosis: Right knee osteoarthritis Procedure(s) Performed: Right total knee arthroplasty Implants: 1. Depuy attune size 4 cruciate-retaining cemented femur 2. Depuy attune size 5 fixed bearing cemented tibial baseplate 3. Depuy attune size 4 fixed bearing 5 mm polyethylene tibial insert 4. Depuy attune 35 mm all polyethylene cemented patella Anesthesia: regional (Adductor canal catheter), local, spinal Surgeon: Mike Stoddard [employer] Operator #1: Rahul Matthews Estimated Blood Loss (ml): 25 Pathology: none sent Condition: stable Disposition: PACU Indications for Procedure: 68-year-old patient seen was symptomatically right knee osteoarthritis. After treatment options were discussed, she elected to proceed with total knee arthroplasty Operative Findings: See description of procedure Description of Procedure: Patient was taken to the operative suite after having an adductor canal catheter placed by the department of anesthesia for postoperative pain management. Patient underwent a spinal anesthetic by the department of anesthesia. Patient was given preoperative IV intake antibiotics and TXA. A well-padded tourniquet was placed about the right lower extremity. The lower extremity was then prepped and draped in the normal sterile orthopedic fashion. The extremity was elevated, a tourniquet was insufflated to 300. A standard anterior incision was made sharply through skin. Dissection was taken down through the subcutaneous soft tissues down to the extensor mechanism. A medial arthrotomy was performed, patella was everted and knee was flexed. There was advanced osteoarthritis noted. I introduced my distal intramedullary femoral drill. I then introduced the distal femoral cutting jig. Thierry VERGARA secured the cutting jig with 2 pins. I held retractors in position while Thierry VERGARA performed the distal femoral resection through the guide area we now removed her distal femoral cutting guide. We now placed our 4-in-1 femoral cutting block and positioned and it was secured with 2 pins by Thierry VERGARA while I held the block in position. The distal femoral finishing was now completed. A proximal tibial cutting guide was positioned. I held the guide in the appropriate position with both hands well Thierry VERGARA inserted stabilizing pins into the guide. P roximal tibial cut was made. We now placed a trial femoral component into position, along with an appropriate size tibial tray and insert. We now took the knee through range of motion and had full extension good flexion and good overall soft tissue balance noted. The patella was everted and stabilized with 2 towel clips held by Thierry VERGARA while I performed a flush with patellar quad tendon utilizing a fresh sawblade. We templated the patella, appropriate drill holes were made. An appropriate trial patella was positioned, knee was taken through full range of motion with the patella tracking very nicely. The trial patella was removed. Drill holes were made through the femoral component. All trial components were removed after marking off the appropriate rotation of the tibia. Retractors were now positioned along the proximal tibia. An appropriate keel punch was made with the appropriate size tibial guide by myself on Thierry VERGARA assisted by holding retractors. At this point appropriate size implants were chosen and opened. The joint was irrigated copiously with pulse lavage mechanical irrigation. The posterior capsule was infiltrated with local analgesic. The wound was irrigated with pulse lavage mechanical irrigation. We mixed antibiotic methylmethacrylate. We placed the knee into flexion. We placed multiple retractors assisted by Thierry VERGARA to expose the proximal tibia. Once the methyl methacrylate was ready, the tibial component was cemented into place removing any excess methylmethacrylate form by both myself and Thierry VERGARA. The femoral component was cemented into place removing the removing any excess methylmethacrylate performed by both myself and Thierry VERGARA. We then inserted the appropriate size polyethylene tibial insert. We made sure that it was locked into position. We took the knee into full extension, and then back in a flexion making sure we had removed any excess methylmethacrylate. The patellar component was then cemented down and secured with clamp. Excess methylmethacrylate removed. We kept the knee in full extension, patellar clamp in position until methylmethacrylate had hardened. Once it had hardened the patellar clamp was removed. The knee was taken through full range of motion. The patella tracked nicely. There was good soft tissue balancing. The tourniquet was now released. Additional hemostasis was achieved via electrocautery. A second gram of TXA was given. The wound again was irrigated with pulse lavage mechanical irrigation. The superficial soft tissues were infiltrated local analgesic. The extensor mechanism was repaired with Vicryl. We checked the repair with range of motion and it was stable. The subcutaneous soft tissues were repaired with Vicryl in layers. The skin was approximated with pernio/Dermabond. Sterile dressings were applied followed by loose web roll and Lauro bandage. The patient was transferred to a bed, and taken to recovery in stable and satisfactory condition. Thierry VERGARA assisted with this complex procedure.
--- NOTE | 2018-12-14 13:09 | XR ---
EXAMINATION TYPE: XR knee limited RT DATE OF EXAM: 12/14/2018 COMPARISON: NONE TECHNIQUE: Two views submitted HISTORY: Post op FINDINGS: There is a prosthetic knee in near anatomic alignment. There is soft tissue edema and emphysema. IMPRESSION: 1. Postoperative change. Appears in near-anatomic alignment
[2018-12-14 13:28] LABS: Glucose,Whole Blood 158 mg/dL (75-99)
--- NOTE | 2018-12-14 14:46 | P.CONS ---
History of Present Illness - Reason for Consult Consult date: 12/14/18 Medical management - History of Present Illness This is a 68-year-old female patient of Dr. Tolentino with past medical history of diabetes mellitus type 2, hypertension, hyperlipidemia, osteoarthritis, obstructive sleep apnea using CPAP. Patient was recently hospitalized in September for a left total knee arthroplasty. She has been admitted today under the care of Dr. Maribell Christianson status post right total knee arthroplasty. Patient states her pain is controlled right now. She denies any nausea vomiting and complains that she is very hungry and wants to eat. Blood pressure is running on the low side but stable, patient is been afebrile. Review of Systems All systems: negative Constitutional: Denies chills, Denies fatigue, Denies fever, Denies lethargy, Denies malaise, Denies night sweats, Denies poor appetite, Denies weakness Eyes: denies blurred vision, denies pain Ears, nose, mouth and throat: Denies dysphagia, Denies headache, Denies hoarseness, Denies nasal congestion, Denies nasal discharge, Denies sore throat, Denies vertigo Cardiovascular: Denies chest pain, Denies dyspnea on exertion, Denies edema, Denies leg edema, Denies lightheadedness, Denies shortness of breath, Denies syncope Respiratory: Denies cough, Denies cough with sputum, Denies dyspnea, Denies excessive sputum, Denies hemoptysis, Denies home oxygen, Denies wheezing Gastrointestinal: Denies abdominal pain, Denies diarrhea, Denies loss of appetite, Denies nausea, Denies vomiting Genitourinary: Denies dysuria, Denies hematuria Musculoskeletal: Denies frequent falls, Denies gait dysfunction, Denies myalgias Integumentary: Reports wounds, Denies color changes, Denies pruritus, Denies rash Neurological: Denies aphasia, Denies change in mentation, Denies confusion, Denies gait dysfunction, Denies headaches, Denies numbness, Denies seizures, Denies weakness Psychiatric: Denies anxiety, Denies depression Endocrine: Denies fatigue, Denies weight change Past Medical History Past Medical History: Diabetes Mellitus, Hyperlipidemia, Hypertension, Osteoarthritis (OA), Sleep Apnea/CPAP/BIPAP, Thyroid Disorder Additional Past Medical History / Comment(s): uses CPAP Last Myocardial Infarction Date:: unknown History of Any Multi-Drug Resistant Organisms: None Reported Past Surgical History: Cholecystectomy, Heart Catheterization, Joint Replacem ent, Tubal Ligation Additional Past Surgical History / Comment(s): LEFT TOTAL KNEE, EGD, lap. jen fundoplication Past Anesthesia/Blood Transfusion Reactions: Previous Problems w/ Anesthesia Additional Past Anesthesia/Blood Transfusion Reaction / Comm: difficulty waking up after anes.1998 Smoking Status: Never smoker Past Alcohol Use History: None Reported Past Drug Use History: None Reported - Past Family History Father Family Medical History: Congestive Heart Failure (CHF), Diabetes Mellitus Mother Family Medical History: COPD, Hypertension Brother(s) Family Medical History: Coronary Artery Disease (CAD), Diabetes Mellitus Medications and Allergies Home Medications Medication Instructions Recorded Confirmed Type Hydrochlorothiazide [Hydrodiuril] 25 mg PO Q48H 06/07/14 12/14/18 History Levothyroxine Sodium [Synthroid] 25 mcg PO QAM 06/07/14 12/14/18 History Losartan [Cozaar] 50 mg PO DAILY 06/07/14 12/14/18 History Metoprolol Succinate 25 mg PO DAILY 06/07/14 12/14/18 History Rosuvastatin [Crestor] 20 mg PO DAILY 10/27/17 12/14/18 History sitaGLIPtin [Januvia] 100 mg PO DAILY 10/27/17 12/14/18 History Cholecalciferol (Vitamin D3) 4,000 unit PO DAILY 11/29/17 12/14/18 History [Vitamin D3] Triamcinolone 0.025% Cream 1 applic TOPICAL BID PRN 11/29/17 12/14/18 History [Kenalog 0.025% Cream] busPIRone HCL 15 mg PO DAILY 11/29/17 12/14/18 History metFORMIN HCL ER [Glucophage Xr] 1,000 mg PO AC-BID 11/29/17 12/14/18 History Turmeric Root Extract [Turmeric] 500 mg PO DAILY 09/09/18 12/14/18 History diphenhydrAMINE HCL [Benadryl] 50 mg PO HS 09/09/18 12/14/18 History Aspirin [Adult Low Dose Aspirin EC] 81 mg PO HS 12/03/18 12/14/18 History DULoxetine HCL [Cymbalta] 60 mg PO DAILY 12/03/18 12/14/18 History Multivitamins, Thera [Multivitamin 1 tab PO DAILY 12/03/18 12/14/18 History (formulary)] DULoxetine HCL [Cymbalta] 30 mg PO DAILY 12/14/18 12/14/18 History Allergies Allergy/AdvReac Type Severity Reaction Status Date / Time Penicillins Allergy Severe Dyspnea Verified 12/14/18 11:59 Physical Exam Vitals: Vital Signs Temp Pulse Pulse Resp BP Pulse Ox 12/14/18 12:57 59 L 16 100/50 98 12/14/18 12:42 58 L 16 96/51 97 12/14/18 12:27 58 L 16 90/53 96 12/14/18 12:13 97.5 F L 59 L 18 103/51 96 12/14/18 09:36 62 16 103/59 95 12/14/18 08:56 98.2 F 72 16 139/57 96 Intake and Output 12/13/18 12/14/18 12/14/18 22:59 06:59 14:59 Intake Total 1556 Output Total 25 Balance 1531 Intake: IV 1556 Output: Estimated Blood Loss 25 Gen: This is a 68-year-old female. She is resting in bed and appears to be comfortable and in no acute distress. HEENT: Head is atraumatic, normocephalic. Pupils equal, round. Sclerae is anicteric. NECK: Supple. No JVD. No lymphadenopathy. No thyromegaly. LUNGS: Clear to auscultation. No wheezes or rhonchi. No intercostal retractions. HEART: Regular rate and rhythm. No murmur. ABDOMEN: Soft. Bowel sounds are present. No masses. No tenderness. EXTREMITIES: No pedal edema. No calf tenderness. Dressing in place to the right knee is not removed. Dorsalis pedis +2 bilaterally. NEUROLOGICAL: Patient is awake, alert and oriented x3. Cranial nerves 2 through 12 are grossly intact. Results Labs: Abnormal Lab Results - Last 24 Hours (Table) 12/14/18 12/14/18 Range/Units 09:06 12:50 POC Glucose (mg/dL) 138 H 158 H (75-99) mg/dL Assessment and Plan Plan: 1. Osteoarthritis status post right total knee arthroplasty. Continue current pain management, PT and OT per orthopedics. Patient is on Lovenox for DVT prophylaxis. Continue incentive spirometry to reduce incidence of atelectasis and hospital-acquired pneumonia. 2. Diabetes mellitus type 2. Continue Januvia and metformin, NovoLog scale before meals and at bedtime. 3. Hypertension. Resume losartan with parameters, hold hydrochlorothiazide, continue Lopressor with parameters. 4. Hypothyroidism. Continue levothyroxine 25 g daily. 5. Recurrent depression. Continue Cymbalta 60 mg daily only. 6. Obstructive sleep apnea. Continue CPAP. 7. GI prophylaxis. Protonix. Discharge plan: home Impression and plan of care have been directed as dictated by the signing physician. Lisa Garza nurse practitioner acting as scribe for signing physician.
[2018-12-14] MEDS: CLINDAMYCIN 900 MG in DEXTROSE 5% IN WATER 50 ML IVPB SCH ×4 (16:05→21:26)
[2018-12-14 16:35] LABS: Glucose,Whole Blood 220 mg/dL (75-99)
[2018-12-14] MEDS: metFORMIN 500 MG TAB PO SCH (17:36)
[2018-12-14] MEDS: INSULIN ASPART (NovoLOG) 100 UNIT/ML VIAL SQ SCH ×2 (17:37→21:26)
[2018-12-14 18:02] VITALS: BMI 34.4
[2018-12-14 21:18] LABS: Glucose,Whole Blood 170 mg/dL (75-99)
[2018-12-14] MEDS: diphenhydrAMINE 50 MG CAP PO SCH (21:26)
[2018-12-14] MEDS: SENNOSIDES-DOCUSATE SODIUM 1 EACH TAB PO SCH (23:03)
[2018-12-14] MEDS: ENOXAPARIN 30 MG/0.3 ML SYRINGE SQ SCH (23:03)
[2018-12-15] MEDS: HYDROcodone/APAP 7.5-325MG 1 EACH TAB PO PRN ×4 (04:06→21:47)
[2018-12-15] MEDS: LEVOTHYROXINE 25 MCG TAB PO SCH (04:07)
--- NOTE | 2018-12-15 05:55 | P.PN ---
Progress Note - Text Progress Note Date: 12/15/18 68 yo female status post right total knee replacement. Patient received adductor canal catheter. Ropivacaine 0.2% at 8 mls/hr. Patient lying in bed comfortably. VAS score of 2/10, no complains overnight. Assessment and plan: patient will be sent home with the adductor canal pump. Adequate pain control.
[2018-12-15 07:20] LABS: Glucose,Whole Blood 111 mg/dL (75-99)
[2018-12-15] MEDS: INSULIN ASPART (NovoLOG) 100 UNIT/ML VIAL SQ SCH ×4 (07:20→21:49)
[2018-12-15 07:23] LABS: Basophils % (A) 1 %; Eosinophils % (A) 0 %; HCT 31.1 % (34.0-46.0); HGB 10.5 gm/dL (11.4-16.0); Lymphocytes # (A) 2.1 k/uL (1.0-4.8); Lymphocytes % (A) 23 %; MCH 30.4 pg (25.0-35.0); MCHC 33.6 g/dL (31.0-37.0); MCV 90.5 fL (80.0-100.0); Mean Platelet Volume 7.5; Monocytes # (A) 0.8 k/uL (0-1.0); Monocytes % (A) 9 %; Neutrophils # (A) 5.9 k/uL (1.3-7.7); Neutrophils % (A) 66 %; Platelet Count 200 k/uL (150-450); RBC 3.44 m/uL (3.80-5.40); RDW 13.4 % (11.5-15.5)
[2018-12-15] MEDS: LINAGLIPTIN 5 MG TABLET PO SCH (08:28)
[2018-12-15] MEDS: metFORMIN 500 MG TAB PO SCH ×2 (08:28→17:23)
[2018-12-15] MEDS: busPIRone HCl 5 MG TAB PO SCH (08:28)
[2018-12-15] MEDS: CHOLECALCIFEROL 1,000 UNIT TAB PO SCH (08:28)
[2018-12-15] MEDS: ENOXAPARIN 30 MG/0.3 ML SYRINGE SQ SCH ×2 (08:28→21:48)
[2018-12-15] MEDS: DULoxetine HCL 60 MG CAPSULE.DR PO SCH (08:29)
[2018-12-15] MEDS: METOPROLOL SUCCINATE (ER) 25 MG TAB.ER.24H PO SCH (08:29)
[2018-12-15] MEDS: PANTOPRAZOLE 40 MG TABLET PO SCH (08:29)
[2018-12-15] MEDS: ATORVASTATIN 40 MG TAB PO SCH (08:29)
[2018-12-15] MEDS: LOSARTAN 50 MG TAB PO SCH (08:30)
[2018-12-15] MEDS: LACTATED RINGERS 1,000 ML IV SCH ×2 (10:29→19:06)
[2018-12-15 11:41] LABS: Glucose,Whole Blood 119 mg/dL (75-99)
--- NOTE | 2018-12-15 12:41 | P.PN ---
Subjective Progress Note Date: 12/15/18 Principal diagnosis: Status post right total knee arthroplasty Patient is evaluated at bedside today. She admits to increase in pain into the night. She also has had an hospital difficulty getting in and out of bed. She has ambulated with therapy. She denies any chest pain or shortness of breath. Objective - Vital Signs Vital signs: Vital Signs Temp 98.3 F 12/15/18 07:00 Pulse 57 L 12/15/18 08:30 Resp 16 12/15/18 08:30 BP 123/67 12/15/18 07:00 Pulse Ox 96 12/15/18 07:00 Intake & Output 12/14/18 12/15/18 12/15/18 18:59 06:59 18:59 Intake Total 1792 1050 200 Output Total 25 Balance 1767 1050 200 Intake: IV 1556 Intake, IV Titration 1050 Amount Clindamycin 900 mg In 100 Dextrose 5% in Water 50 ml @ 50 mls/hr IVPB Q6H G[facility]FFIN Rx#:[id number] Lactated Ringers 1,000 ml 950 @ 100 mls/hr IV .Q10H G[facility]FFIN Rx#:[id number] Oral 236 200 Output: Estimated Blood Loss 25 Other: Voiding Method Toilet Toilet # Voids 1 - Exam Right lower extremity: Incision is clean, dry, and intact. The exofin fusion tape is in good condition. There is minimal soft tissue swelling and ecchymosis surrounding the medial and lateral aspects of the incision. Calf is soft, no tenderness with palpation. Plantar flexion, dorsiflexion, EHL, FHL are intact. Sensory exam to light touch throughout the extremity is intact, dorsal pedis pulses 2+. - Labs CBC & Chem 7: 12/15/18 06:22 Labs: Abnormal Lab Results - Last 24 Hours (Table) 12/14/18 12/14/18 12/14/18 Range/Units 12:50 16:34 21:04 RBC (3.80-5.40) m/uL Hgb (11.4-16.0) gm/dL Hct (34.0-46.0) % POC Glucose (mg/dL) 158 H 220 H 170 H (75-99) mg/dL 12/15/18 12/15/18 12/15/18 Range/Units 06:22 07:15 11:32 RBC 3.44 L (3.80-5.40) m/uL Hgb 10.5 L (11.4-16.0) gm/dL Hct 31.1 L (34.0-46.0) % POC Glucose (mg/dL) 111 H 119 H (75-99) mg/dL Assessment and Plan Plan: Assessment: 1. Postop day #1 status post right total knee arthroplasty Plan: Pain control, continue use of oral medication GI and DVT prophylaxis, continue current medication Wound care instructions discussed Encourage incentive spirometer Medical recommendations The patient's increasing pain along with difficulty getting in and out of bed, we will keep patient will additionally. She will be made in inpatient status. Plan for discharge home tomorrow Time with Patient: Less than 30
[2018-12-15] MEDS: MULTIVITAMINS, THERA 1 EACH TAB PO SCH (16:07)
[2018-12-15 17:02] LABS: Glucose,Whole Blood 158 mg/dL (75-99)
[2018-12-15] MEDS: ALPRAZolam 0.25 MG TAB PO PRN (17:23)
[2018-12-15 21:16] LABS: Glucose,Whole Blood 135 mg/dL (75-99)
[2018-12-15] MEDS: SENNOSIDES-DOCUSATE SODIUM 1 EACH TAB PO SCH (21:47)
[2018-12-15] MEDS: diphenhydrAMINE 50 MG CAP PO SCH (21:48)
[2018-12-16] MEDS: traMADol 50 MG TAB PO PRN ×2 (00:44→07:45)
[2018-12-16] MEDS: ALPRAZolam 0.25 MG TAB PO PRN (03:34)
[2018-12-16] MEDS: HYDROcodone/APAP 7.5-325MG 1 EACH TAB PO PRN ×2 (03:34→10:11)
[2018-12-16] MEDS: LACTATED RINGERS 1,000 ML IV SCH (04:34)
[2018-12-16] MEDS: LEVOTHYROXINE 25 MCG TAB PO SCH (05:36)
[2018-12-16 07:31] LABS: Glucose,Whole Blood 133 mg/dL (75-99)
[2018-12-16] MEDS: LOSARTAN 50 MG TAB PO SCH (07:41)
[2018-12-16] MEDS: busPIRone HCl 5 MG TAB PO SCH (07:41)
[2018-12-16] MEDS: LINAGLIPTIN 5 MG TABLET PO SCH (07:41)
[2018-12-16] MEDS: PANTOPRAZOLE 40 MG TABLET PO SCH (07:41)
[2018-12-16] MEDS: CHOLECALCIFEROL 1,000 UNIT TAB PO SCH (07:41)
[2018-12-16] MEDS: DULoxetine HCL 60 MG CAPSULE.DR PO SCH (07:41)
[2018-12-16] MEDS: METOPROLOL SUCCINATE (ER) 25 MG TAB.ER.24H PO SCH (07:41)
[2018-12-16] MEDS: ENOXAPARIN 30 MG/0.3 ML SYRINGE SQ SCH (07:41)
[2018-12-16] MEDS: ATORVASTATIN 40 MG TAB PO SCH (07:42)
[2018-12-16] MEDS: INSULIN ASPART (NovoLOG) 100 UNIT/ML VIAL SQ SCH ×2 (07:42→12:08)
[2018-12-16] MEDS: metFORMIN 500 MG TAB PO SCH (07:42)
[2018-12-16 07:54] VITALS: BP 175/94; PULSE 76; RESP 20; TEMP 98
--- NOTE | 2018-12-16 11:10 | P.PN ---
Subjective Progress Note Date: 12/16/18 Principal diagnosis: Status post right total knee arthroplasty Patient is evaluated at bedside today. Patient is done better with pain control today ambulating. She has ambulated with therapy. She denies any chest pain or shortness of breath. Objective - Vital Signs Vital signs: Vital Signs Temp 98.0 F 12/16/18 07:18 Pulse 76 12/16/18 08:00 Resp 20 12/16/18 08:00 BP 175/94 12/16/18 07:18 Pulse Ox 96 12/16/18 07:18 Intake & Output 12/15/18 12/16/18 12/16/18 18:59 06:59 18:59 Intake Total 720 Balance 720 Intake: Oral 720 Other: Voiding Method Toilet Toilet Toilet # Voids 2 3 2 - Exam Right lower extremity: Incision is clean, dry, and intact. The exofin fusion tape is in good condition. There is minimal soft tissue swelling and ecchymosis surrounding the medial and lateral aspects of the incision. Calf is soft, no tenderness with palpation. Plantar flexion, dorsiflexion, EHL, FHL are intact. Sensory exam to light touch throughout the extremity is intact, dorsal pedis pulses 2+. - Labs CBC & Chem 7: 12/15/18 06:22 Labs: Abnormal Lab Results - Last 24 Hours (Table) 12/15/18 12/15/18 12/15/18 Range/Units 11:32 16:53 21:15 POC Glucose (mg/dL) 119 H 158 H 135 H (75-99) mg/dL 12/16/18 Range/Units 07:21 POC Glucose (mg/dL) 133 H (75-99) mg/dL Assessment and Plan Plan: Assessment: 1. Postop day #2 status post right total knee arthroplasty Plan: Pain control, plan for discharge on oral medication GI and DVT prophylaxis, we'll discharge on aspirin 81mg bid Wound care instructions discussed Encourage incentive spirometer Medical recommendations Discharge home today Time with Patient: Less than 30
--- NOTE | 2018-12-16 11:13 | P.DS ---
Providers Date of admission: 12/14/18 08:32 Expected date of discharge: 12/16/18 Attending physician: Mike Stoddard Consults: 12/14/18 19:02 Consult Physician Routine Consulting Provider: Slade Dukes Reason/Comments: medical management Do you want consulting provider notified?: Yes Primary care physician: Humza Roberto [facility] Course: Date of admission: 12/14/2018 Date of discharge: 12/16/2018 Admission diagnosis: Status post right total knee arthroplasty Discharge diagnosis: Same Attending physician: Dr. Stoddard Surgical procedures: Right total knee arthroplasty Brief history: Patient is a 68-year-old female with a history of with progressive primary right knee osteoarthritis. At this point patient has failed conservative treatment measures and has opted to proceed with a elective right total knee arthroplasty. Hospital course: Details of patient's surgery can be found in operative report. Patient tolerated the procedure well and was subsequently transported to orthopedic floor. Patient's orthopeidc and medical care was provided daily. Patient had daily laboratory tests performed for evaluation of overall blood counts. Patient had daily physical therapy to include strengthening range of motion as well as education with walker ambulation. Patient had daily CPM usage as part of their physical therapy program. Patient was treated with Lovenox for their postoperative DVT prophylaxis during their inpatient stay. Patient was noted to have a relatively uneventful postoperative course. Patient reported satisfactory pain control with oral pain medications by postoperative day 0. Patient showed satisfactory progress with physical therapy. Patient moved steadily through the program and had no difficulty meeting the goals by post operative day 2. Given patient's otherwise satisfactory course and having met physical therapy goals, plan is to discharge patient home on postoperative day 2. Discharge condition/disposition: Patient will be discharged home in stable condition. Discharge medications: Instructions are given on resumption of patient's normal daily medications per primary care recommendation, in addition patient will be prescribed [place] 7.5 mg/325 mg, tramadol 50 mg, aspirin 81 mg. Discharge instructions: 1. Wound care and infection precautions, keep incision dry and covered while showering, no lotions, creams, moisturizers. No soaking, tubs, pools, hottubs. Do not scrub over the incision. 2. Weight-bear as tolerated with walker / cane until follow-up. 3. Ice and elevate when necessary. Do not exceed 20 minutes per hour with ice pack. 4. Utilize compression sleeve until seen at first follow up appointment. 5. Visiting nursing care. 6. Home physical therapy including home CPM. 7. Pain meds and anticoagulants per prescription. 8. Pain medication has potential to cause constipation. Increase oral fluid and fiber intake. Contact primary care provider if you have not had a bowel movement within 48 hours after discharge 9. No anti-inflammatory medication until discussed at first post operative visit, this including Motrin, Aleve, Mobic, Diclofenac. 10. Follow up in office at 2 weeks postop with Thierry Matthews PA-C 11. Follow up with your primary care doctor 7-10 days after discharge. 12. Contact [facility] with any questions, . Procedures: Right total knee arthroplasty Patient Condition at Discharge: Good Plan - Discharge Summary Discharge Rx Participant: Yes New Discharge Prescriptions: New Aspirin [Adult Low Dose Aspirin EC] 81 mg PO BID #60 tablet. HYDROcodone/APAP 7.5-325MG [[place] 7.5] 1 - 2 each PO Q6HR PRN #42 tab PRN Reason: Pain traMADol HCl [Ultram] 50 mg PO Q6H PRN #28 tab PRN Reason: Pain Continue Losartan [Cozaar] 50 mg PO DAILY Hydrochlorothiazide [Hydrodiuril] 25 mg PO Q48H Levothyroxine Sodium [Synthroid] 25 mcg PO QAM Metoprolol Succinate 25 mg PO DAILY sitaGLIPtin [Januvia] 100 mg PO DAILY Rosuvastatin [Crestor] 20 mg PO DAILY busPIRone HCL 15 mg PO DAILY metFORMIN HCL ER [Glucophage Xr] 1,000 mg PO AC-BID Cholecalciferol (Vitamin D3) [Vitamin D3] 4,000 unit PO DAILY Triamcinolone 0.025% Cream [Kenalog 0.025% Cream] 1 applic TOPICAL BID PRN PRN Reason: Skin Irritation diphenhydrAMINE HCL [Benadryl] 50 mg PO HS Turmeric Root Extract [Turmeric] 500 mg PO DAILY Multivitamins, Thera [Multivitamin (formulary)] 1 tab PO DAILY Aspirin [Adult Low Dose Aspirin EC] 81 mg PO HS DULoxetine HCL [Cymbalta] 60 mg PO DAILY DULoxetine HCL [Cymbalta] 30 mg PO DAILY Discharge Medication List Hydrochlorothiazide [Hydrodiuril] 25 mg PO Q48H 06/07/14 [History] Levothyroxine Sodium [Synthroid] 25 mcg PO QAM 06/07/14 [History] Losartan [Cozaar] 50 mg PO DAILY 06/07/14 [History] Metoprolol Succinate 25 mg PO DAILY 06/07/14 [History] Rosuvastatin [Crestor] 20 mg PO DAILY 10/27/17 [History] sitaGLIPtin [Januvia] 100 mg PO DAILY 10/27/17 [History] Cholecalciferol (Vitamin D3) [Vitamin D3] 4,000 unit PO DAILY 11/29/17 [History] Triamcinolone 0.025% Cream [Kenalog 0.025% Cream] 1 applic TOPICAL BID PRN 11/29/17 [History] busPIRone HCL 15 mg PO DAILY 11/29/17 [History] metFORMIN HCL ER [Glucophage Xr] 1,000 mg PO AC-BID 11/29/17 [History] Turmeric Root Extract [Turmeric] 500 mg PO DAILY 09/09/18 [History] diphenhydrAMINE HCL [Benadryl] 50 mg PO HS 09/09/18 [History] Aspirin [Adult Low Dose Aspirin EC] 81 mg PO HS 12/03/18 [History] DULoxetine HCL [Cymbalta] 60 mg PO DAILY 12/03/18 [History] Multivitamins, Thera [Multivitamin (formulary)] 1 tab PO DAILY 12/03/18 [History] DULoxetine HCL [Cymbalta] 30 mg PO DAILY 12/14/18 [History] Aspirin [Adult Low Dose Aspirin EC] 81 mg PO BID #60 tablet. 12/16/18 [Rx] HYDROcodone/APAP 7.5-325MG [[place] 7.5] 1 - 2 each PO Q6HR PRN #42 tab 12/16/18 [ Rx] traMADol HCl [Ultram] 50 mg PO Q6H PRN #28 tab 12/16/18 [Rx] Follow up Appointment(s)/Referral(s): [facility] [NON-STAFF] - (Will deliver CPM) Rahul Matthews PAC [PHYSICIAN TOOL DRAWING CHECKER] - 2 Weeks Activity/Diet/Wound Care/Special Instructions: Orthopedic Discharge Instructions: 1. Wound care and infection precautions, keep incision dry and covered while showering, no lotions, creams, moisturizers. No soaking, pools, hot tubs. Do not scrub over incision. 2. Weight-bear as tolerated with walker / cane until follow-up. 3. Ice and elevate when necessary. Do not exceed 20 minutes per hour with ice pack. 4. Utilize compression sleeve until seen at first follow up appointment. 5. Pain meds and anticoagulants per prescription. 6. Pain medication has potential to cause constipation. Increase oral fluid and fiber intake. Contact primary care provider if you have not had a bowel movement within 48 hours after discharge. 7. No anti-inflammatory medication until discussed at first post operative visit, this including Motrin, Aleve, Mobic, Diclofenac. 8. Follow up in office at 2 weeks postop with Thierry Matthews PA-C 9. Follow up with your primary care doctor 7-10 days after discharge. 10. Contact [facility] with any questions, [facility] [phone]. Discharge Disposition: HOME WITH HOME HEALTH SERVICES
[2018-12-16 11:43] LABS: Glucose,Whole Blood 132 mg/dL (75-99)
[2018-12-16] MEDS: MULTIVITAMINS, THERA 1 EACH TAB PO SCH (12:08)
--- NOTE | 2018-12-16 12:08 | P.PN ---
Subjective Progress Note Date: 12/15/18 This is a 68-year-old female patient of Dr. Tolentino with past medical history of diabetes mellitus type 2, hypertension, hyperlipidemia, osteoarthritis, obstructive sleep apnea using CPAP. Patient was recently hospitalized in September for a left total knee arthroplasty. She has been admitted today under the care of Dr. Maribell Christianson status post right total knee arthroplasty. Patient states her pain is controlled right now. She denies any nausea vomiting and complains that she is very hungry and wants to eat. Blood pressure is running on the low side but stable, patient is been afebrile. 12/15: Patient has been afebrile, heart rate 57, blood pressure 123/67, pulse ox 96% on room air. Patient does have adductor canal catheter in place for pain control. Patient states pain is controlled. She states she is eating and drinking okay. She is passing gas but none of bowel movement yet. She has been afebrile, heart rate 57, blood pressure 123/67, pulse ox 96% on room air. Anticipate she will discharge home tomorrow. Review of Systems Constitutional: Denies chills, Denies fatigue, Denies fever, Denies lethargy, Denies malaise, Denies night sweats, Denies poor appetite, Denies weakness Eyes: denies blurred vision, denies pain Ears, nose, mouth and throat: Denies dysphagia, Denies headache, Denies hoarseness, Denies nasal congestion, Denies nasal discharge, Denies sore throat, Denies vertigo Cardiovascular: Denies chest pain, Denies dyspnea on exertion, Denies edema, Denies leg edema, Denies lightheadedness, Denies shortness of breath, Denies syncope Respiratory: Denies cough, Denies cough with sputum, Denies dyspnea, Denies excessive sputum, Denies hemoptysis, Denies home oxygen, Denies wheezing Gastrointestinal: Denies abdominal pain, Denies diarrhea, Denies loss of appetite, Denies nausea, Denies vomiting Genitourinary: Denies dysuria, Denies hematuria Musculoskeletal: Denies frequent falls, Denies gait dysfunction, Denies myalgias Integumentary: Reports wounds, Denies color changes, Denies pruritus, Denies rash Neurological: Denies aphasia, Denies change in mentation, Denies confusion, Denies gait dysfunction, Denies headaches, Denies numbness Psychiatric: Denies anxiety, Denies depression Objective - Vital Signs Vital signs: Vital Signs Temp 98.3 F 12/15/18 07:00 Pulse 57 L 12/15/18 08:30 Resp 16 12/15/18 08:30 BP 123/67 12/15/18 07:00 Pulse Ox 96 12/15/18 07:00 Intake & Output 12/14/18 12/15/18 12/15/18 18:59 06:59 18:59 Intake Total 1792 1050 200 Output Total 25 Balance 1767 1050 200 Intake: IV 1556 Intake, IV Titration 1050 Amount Clindamycin 900 mg In 100 Dextrose 5% in Water 50 ml @ 50 mls/hr IVPB Q6H [facility] Rx#:[id number] Lactated Ringers 1,000 ml 950 @ 100 mls/hr IV .Q10H GRIFFIN Rx#:[id number] Oral 236 200 Output: Estimated Blood Loss 25 Other: Voiding Method Toilet Toilet # Voids 1 - Exam Gen: This is a 68-year-old female. She is resting in recliner and appears to be comfortable. HEENT: Head is atraumatic, normocephalic. Pupils equal, round. Sclerae is anicteric. NECK: Supple. No JVD. No lymphadenopathy. No thyromegaly. LUNGS: Clear to auscultation. No wheezes or rhonchi. No intercostal retractions. HEART: Regular rate and rhythm. No murmur. ABDOMEN: Soft. Bowel sounds are present. No masses. No tenderness. EXTREMITIES: No pedal edema. No calf tenderness. Dressing in place to the right knee is not removed. Dorsalis pedis +2 bilaterally. NEUROLOGICAL: Patient is awake, alert and oriented x3. Cranial nerves 2 through 12 are grossly intact. - Labs CBC & Chem 7: 12/15/18 06:22 Labs: Abnormal Lab Results - Last 24 Hours (Table) 12/14/18 12/14/18 12/14/18 Range/Units 12:50 16:34 21:04 RBC (3.80-5.40) m/uL Hgb (11.4-16.0) gm/dL Hct (34.0-46.0) % POC Glucose (mg/dL) 158 H 220 H 170 H (75-99) mg/dL 12/15/18 12/15/18 Range/Units 06:22 07:15 RBC 3.44 L (3.80-5.40) m/uL Hgb 10.5 L (11.4-16.0) gm/dL Hct 31.1 L (34.0-46.0) % POC Glucose (mg/dL) 111 H (75-99) mg/dL Assessment and Plan Plan: 1. Osteoarthritis status post right total knee arthroplasty. Continue current pain management, PT and OT per orthopedics. Patient has a Dr. ernandez catheter in place for pain control. Patient is on Lovenox for DVT prophylaxis. Continue incentive spirometry to reduce incidence of atelectasis and hospital-acquired pneumonia. 2. Diabetes mellitus type 2. Continue Januvia and metformin, NovoLog scale before meals and at bedtime. 3. Hypertension. Resume losartan with parameters, hold hydrochlorothiazide, continue Lopressor with parameters. 4. Hypothyroidism. Continue levothyroxine 25 g daily. 5. Recurrent depression. Continue Cymbalta 60 mg daily only. 6. Obstructive sleep apnea. Continue CPAP. 7. GI prophylaxis. Protonix. Discharge plan: home tomorrow Impression and plan of care have been directed as dictated by the signing physician. Lisa Garza nurse practitioner acting as scribe for signing physician.
--- NOTE | 2018-12-16 12:10 | P.PN ---
Subjective Progress Note Date: 12/16/18 This is a 68-year-old female patient of Dr. Tolentino with past medical history of diabetes mellitus type 2, hypertension, hyperlipidemia, osteoarthritis, obstructive sleep apnea using CPAP. Patient was recently hospitalized in September for a left total knee arthroplasty. She has been admitted today under the care of Dr. Maribell Christianson status post right total knee arthroplasty. Patient states her pain is controlled right now. She denies any nausea vomiting and complains that she is very hungry and wants to eat. Blood pressure is running on the low side but stable, patient is been afebrile. 12/15: Patient has been afebrile, heart rate 57, blood pressure 123/67, pulse ox 96% on room air. Patient does have adductor canal catheter in place for pain control. Patient states pain is controlled. She states she is eating and drinking okay. She is passing gas but none of bowel movement yet. She has been afebrile, heart rate 57, blood pressure 123/67, pulse ox 96% on room air. Anticipate she will discharge home tomorrow. 12/16: Patient states she did not eat very much for dinner or breakfast this morning. She denies any difficulty with eating or drinking. She states she just was not hungry. She is passing gas. But has not had a bowel movement. She is expected for discharge home today. No change in home medications and she can resume her blood pressure medications at home. Review of Systems Constitutional: Denies chills, Denies fatigue, Denies fever, Denies lethargy, Denies malaise, Denies night sweats, Denies poor appetite, Denies weakness Eyes: denies blurred vision, denies pain Ears, nose, mouth and throat: Denies dysphagia, Denies headache, Denies hoarseness, Denies nasal congestion, Denies nasal discharge, Denies sore throat, Denies vertigo Cardiovascular: Denies chest pain, Denies dyspnea on exertion, Denies edema, Denies leg edema, Denies lightheadedness, Denies shortness of breath, Denies syncope Respiratory: Denies cough, Denies cough with sputum, Denies dyspnea, Denies excessive sputum, Denies hemoptysis, Denies home oxygen, Denies wheezing Gastrointestinal: Denies abdominal pain, Denies diarrhea, Denies loss of appetite, Denies nausea, Denies vomiting Genitourinary: Denies dysuria, Denies hematuria Musculoskeletal: Denies frequent falls, Denies gait dysfunction, Denies myalgias Integumentary: Reports wounds, Denies color changes, Denies pruritus, Denies rash Neurological: Denies aphasia, Denies change in mentation, Denies confusion, Denies headaches, Denies numbness Psychiatric: Denies anxiety, Denies depression Objective - Vital Signs Vital signs: Vital Signs Temp 98.0 F 12/16/18 07:18 Pulse 76 12/16/18 08:00 Resp 20 12/16/18 08:00 BP 175/94 12/16/18 07:18 Pulse Ox 96 12/16/18 07:18 Intake & Output 12/15/18 12/16/18 12/16/18 18:59 06:59 18:59 Intake Total 720 Balance 720 Intake: Oral 720 Other: Voiding Method Toilet Toilet Toilet # Voids 2 3 - Exam Gen: This is a 68-year-old female. She is resting in recliner and appears to be comfortable and in no acute distress. HEENT: Head is atraumatic, normocephalic. Pupils equal, round. Sclerae is anicteric. NECK: Supple. No JVD. No lymphadenopathy. No thyromegaly. LUNGS: Clear to auscultation. No wheezes or rhonchi. No intercostal retractions. HEART: Regular rate and rhythm. No murmur. ABDOMEN: Soft. Bowel sounds are present. No masses. No tenderness. EXTREMITIES: No pedal edema. No calf tenderness. Dressing in place to the right knee is not removed. Dorsalis pedis +2 bilaterally. NEUROLOGICAL: Patient is awake, alert and oriented x3. Cranial nerves 2 through 12 are grossly intact. - Labs CBC & Chem 7: 12/15/18 06:22 Labs: Abnormal Lab Results - Last 24 Hours (Table) 12/15/18 12/15/18 12/15/18 Range/Units 11:32 16:53 21:15 POC Glucose (mg/dL) 119 H 158 H 135 H (75-99) mg/dL 12/16/18 Range/Units 07:21 POC Glucose (mg/dL) 133 H (75-99) mg/dL Assessment and Plan Plan: 1. Osteoarthritis status post right total knee arthroplasty. Continue current pain management, PT and OT per orthopedics. Patient has a Dr. ernandez catheter in place for pain control. Patient is on Lovenox for DVT prophylaxis. Continue incentive spirometry to reduce incidence of atelectasis and hospital-acquired pneumonia. 2. Diabetes mellitus type 2. Continue Januvia and metformin, NovoLog scale before meals and at bedtime. 3. Hypertension. Resume losartan with parameters, hold hydrochlorothiazide, continue Lopressor with parameters. Patient may resume her medications at home. 4. Hypothyroidism. Continue levothyroxine 25 g daily. 5. Recurrent depression. Continue Cymbalta 60 mg daily only. 6. Obstructive sleep apnea. Continue CPAP. 7. GI prophylaxis. Protonix. Discharge plan: home Impression and plan of care have been directed as dictated by the signing physician. Lisa Garza nurse practitioner acting as scribe for signing physician.
== END 2018-12-16 13:08 | disposition home health service (06) | DRG 470 ==
LOC: 2ORMAIN 08:32 → 4SSUR 11:57
PROVIDERS: ADMIT Orthopaedic Surgery; ATTEND Orthopaedic Surgery
PROC: 0SRC0J9 Replacement of Right Knee Joint with Synthetic Substitute, Cemented, Open Approach (ICD-10-PCS; principal; 2018-12-14 10:15)
DX: M17.11 Unilateral primary osteoarthritis, right knee (principal); F33.9 Major depressive disorder, recurrent, unspecified; I10 Essential (primary) hypertension; G47.33 Obstructive sleep apnea (adult) (pediatric); E78.5 Hyperlipidemia, unspecified; E11.9 Type 2 diabetes mellitus without complications; E03.9 Hypothyroidism, unspecified; Z79.890 Hormone replacement therapy; Z79.899 Other long term (current) drug therapy; Z79.84 Long term (current) use of oral hypoglycemic drugs; Z79.82 Long term (current) use of aspirin; Z96.652 Presence of left artificial knee joint; Z90.49 Acquired absence of other specified parts of digestive tract; Z98.51 Tubal ligation status; Z88.0 Allergy status to penicillin; Z82.5 Family history of asthma and other chronic lower respiratory diseases; Z82.49 Family history of ischemic heart disease and other diseases of the circulatory system; Z83.3 Family history of diabetes mellitus
CPT/HCPCS: 85025; 88300

== ENCOUNTER 2020-01-24 20:11 | Inpatient (IN) | payer MEDICARE, OTHER ==
--- NOTE | 2020-01-24 20:50 | ED ---
General Adult HPI - General Chief complaint: Arrhythmia/Palpitations Stated complaint: Palpitations Time Seen by Provider: 01/24/20 20:18 Source: patient, family, RN notes reviewed Mode of arrival: ambulatory Limitations: no limitations - History of Present Illness Initial comments: Patient is a pleasant 69-year-old female presenting to the emergency Department with complaints of dyspnea and palpitations. Onset of symptoms was over an hour ago. Patient suddenly felt like her heart was pounding. Patient felt short of breath. Patient became sweaty. Patient did have some nausea. Patient felt too weak to walk. Symptoms lasted around an hour and have started to resolve. Patient is near symptom-free at this time. No history of similar symptoms previously. Patient denies having chest pain. - Related Data Home Medications Medication Instructions Recorded Confirmed Hydrochlorothiazide [Hydrodiuril] 25 mg PO Q48H 06/07/14 12/14/18 Levothyroxine Sodium [Synthroid] 25 mcg PO QAM 06/07/14 12/14/18 Losartan [Cozaar] 50 mg PO DAILY 06/07/14 12/14/18 Metoprolol Succinate 25 mg PO DAILY 06/07/14 12/14/18 Rosuvastatin [Crestor] 20 mg PO DAILY 10/27/17 12/14/18 sitaGLIPtin [Januvia] 100 mg PO DAILY 10/27/17 12/14/18 Cholecalciferol (Vitamin D3) 4,000 unit PO DAILY 11/29/17 12/14/18 [Vitamin D3] Triamcinolone 0.025% Cream 1 applic TOPICAL BID PRN 11/29/17 12/14/18 [Kenalog 0.025% Cream] busPIRone HCL 15 mg PO DAILY 11/29/17 12/14/18 metFORMIN HCL ER [Glucophage Xr] 1,000 mg PO AC-BID 11/29/17 12/14/18 Turmeric Root Extract [Turmeric] 500 mg PO DAILY 09/09/18 12/14/18 diphenhydrAMINE HCL [Benadryl] 50 mg PO HS 09/09/18 12/14/18 Aspirin [Adult Low Dose Aspirin EC] 81 mg PO HS 12/03/18 12/14/18 DULoxetine HCL [Cymbalta] 60 mg PO DAILY 12/03/18 12/14/18 Multivitamins, Thera [Multivitamin 1 tab PO DAILY 12/03/18 12/14/18 (formulary)] DULoxetine HCL [Cymbalta] 30 mg PO DAILY 12/14/18 12/14/18 Previous Rx's Medication Instructions Recorded Aspirin [Adult Low Dose Aspirin EC] 81 mg PO BID #60 tablet. 12/16/18 HYDROcodone/APAP 7.5-325MG [[place] 1 - 2 each PO Q6HR PRN #42 tab 12/16/18 7.5] traMADol HCl [Ultram] 50 mg PO Q6H PRN #28 tab 12/16/18 Allergies Allergy/AdvReac Type Severity Reaction Status Date / Time Penicillins Allergy Severe Dyspnea Verified 01/24/20 20:17 Review of Systems ROS Statement: Those systems with pertinent positive or pertinent negative responses have been documented in the HPI. ROS Other: All systems not noted in ROS Statement are negative. Constitutional: Denies: fever Eyes: Denies: eye pain ENT: Denies: ear pain Respiratory: Reports: dyspnea. Denies: cough Cardiovascular: Reports: chest pain, palpitations Endocrine: Reports: fatigue Gastrointestinal: Reports: nausea. Denies: abdominal pain, vomiting Genitourinary: Denies: dysuria Musculoskeletal: Denies: back pain Skin: Denies: rash Neurological: Denies: weakness Past Medical History Past Medical History: Diabetes Mellitus, Hyperlipidemia, Hypertension, Osteoarthritis (OA), Sleep Apnea/CPAP/BIPAP, Thyroid Disorder Additional Past Medical History / Comment(s): uses CPAP Last Myocardial Infarction Date:: unknown History of Any Multi-Drug Resistant Organisms: None Reported Past Surgical History: Cholecystectomy, Heart Catheterization, Joint Replacement, Tubal Ligation Additional Past Surgical History / Comment(s): LEFT TOTAL KNEE, EGD, lap. jen fundoplication Past Anesthesia/Blood Transfusion Reactions: Previous Problems w/ Anesthesia Additional Past Anesthesia/Blood Transfusion Reaction / Comment(s): difficulty waking up after anes.1998 Past Psychological History: Depression Smoking Status: Never smoker Past Alcohol Use History: None Reported Past Drug Use History: None Reported - Past Family History Father Family Medical History: Congestive Heart Failure (CHF), Diabetes Mellitus Mother Family Medical History: COPD, Hypertension Brother(s) Family Medical History: Coronary Artery Disease (CAD), Diabetes Mellitus General Exam Limitations: no limitations General appearance: alert, in no apparent distress Head exam: Present: normocephalic Eye exam: Present: normal appearance Neck exam: Present: normal inspection Respiratory exam: Present: normal lung sounds bilaterally Cardiovascular Exam: Present: regular rate, normal rhythm Expanded Peripheral pulses: 2+: Radial (R), Radial (L), Dorsalis Pedis (R), Dorsalis Pedis (L) GI/Abdominal exam: Present: soft. Absent: distended, tenderness Extremities exam: Present: normal inspection. Absent: pedal edema, calf tenderness Neurological exam: Present: alert Psychiatric exam: Present: normal affect, normal mood Skin exam: Present: normal color Course Vital Signs 01/24/20 01/24/20 20:12 22:33 Temperature 97.9 F Pulse Rate 85 68 Respiratory 20 17 Rate Blood Pressure 111/77 111/61 O2 Sat by Pulse 99 96 Oximetry EKG Findings - EKG Comments: EKG Findings:: Sinus rhythm at 79. For screening AV block with NE of 244. QRS 78. QT 408. QTC or 7. Left axis. Septal Q waves. No acute ST change. Medical Decision Making - Medical Decision Making Patient reevaluated and resting comfortably in bed. Patient states she is feeling better with oxygen. Patient updated on results and plan. Case was discussed in detail with Dr. Dukes, who will admit for Dr. Tolentino. He does request echo, cardiology consult and carotid Doppler. - Lab Data Result diagrams: 01/24/20 20:45 01/24/20 20:45 Lab Results 01/24/20 01/24/20 01/24/20 Range/Units 20:45 20:45 20:45 WBC 9.9 (3.8-10.6) k/uL RBC 4.49 (3.80-5.40) m/uL Hgb 14.1 (11.4-16.0) gm/dL Hct 42.6 (34.0-46.0) % MCV 94.9 (80.0-100.0) fL MCH 31.5 (25.0-35.0) pg MCHC 33.2 (31.0-37.0) g/dL RDW 13.4 (11.5-15.5) % Plt Count 275 (150-450) k/uL Neutrophils % 61 % Lymphocytes % 29 % Monocytes % 6 % Eosinophils % 2 % Basophils % 1 % Neutrophils # 6.0 (1.3-7.7) k/uL Lymphocytes # 2.9 (1.0-4.8) k/uL Monocytes # 0.6 (0-1.0) k/uL Eosinophils # 0.2 (0-0.7) k/uL Basophils # 0.1 (0-0.2) k/uL PT 9.4 (9.0-12.0) sec INR 0.9 (<1.2) APTT 22.2 (22.0-30.0) sec D-Dimer 0.52 (<0.60) mg/L FEU Sodium 137 (137-145) mmol/L Potassium 3.5 (3.5-5.1) mmol/L Chloride 98 (98-107) mmol/L Carbon Dioxide 20 L (22-30) mmol/L Anion Gap 19 mmol/L BUN 20 H (7-17) mg/dL Creatinine 1.05 H (0.52-1.04) mg/dL Est GFR (CKD-EPI)AfAm 62 (>60 ml/min/1.73 sqM) Est GFR (CKD-EPI)NonAf 54 (>60 ml/min/1.73 sqM) Glucose 280 H (74-99) mg/dL Calcium 9.7 (8.4-10.2) mg/dL Magnesium 1.9 (1.6-2.3) mg/dL Total Bilirubin 0.7 (0.2-1.3) mg/dL AST 32 (14-36) U/L ALT 22 (4-34) U/L Alkaline Phosphatase 51 (38-126) U/L Creatine Kinase 79 (30-135) U/L Troponin I (0.000-0.034) ng/mL Total Protein 7.7 (6.3-8.2) g/dL Albumin 4.9 (3.5-5.0) g/dL TSH 5.230 H (0.465-4.680) mIU/L Free T4 1.09 (0.78-2.19) ng/dL Free T3 pg/mL 3.5 (2.8-5.3) pg/ml 01/23/ Range/Units 20:45 WBC (3.8-10.6) k/uL RBC (3.80-5.40) m/uL Hgb (11.4-16.0) gm/dL Hct (34.0-46.0) % MCV (80.0-100.0) fL MCH (25.0-35.0) pg MCHC (31.0-37.0) g/dL RDW (11.5-15.5) % Plt Count (150-450) k/uL Neutrophils % % Lymphocytes % % Monocytes % % Eosinophils % % Basophils % % Neutrophils # (1.3-7.7) k/uL Lymphocytes # (1.0-4.8) k/uL Monocytes # (0-1.0) k/uL Eosinophils # (0-0.7) k/uL Basophils # (0-0.2) k/uL PT (9.0-12.0) sec INR (<1.2) APTT (22.0-30.0) sec D-Dimer (<0.60) mg/L FEU Sodium (137-145) mmol/L Potassium (3.5-5.1) mmol/L Chloride (98-107) mmol/L Carbon Dioxide (22-30) mmol/L Anion Gap mmol/L BUN (7-17) mg/dL Creatinine (0.52-1.04) mg/dL Est GFR (CKD-EPI)AfAm (>60 ml/min/1.73 sqM) Est GFR (CKD-EPI)NonAf (>60 ml/min/1.73 sqM) Glucose (74-99) mg/dL Calcium (8.4-10.2) mg/dL Magnesium (1.6-2.3) mg/dL Total Bilirubin (0.2-1.3) mg/dL AST (14-36) U/L ALT (4-34) U/L Alkaline Phosphatase (38-126) U/L Creatine Kinase (30-135) U/L Troponin I <0.012 (0.000-0.034) ng/mL Total Protein (6.3-8.2) g/dL Albumin (3.5-5.0) g/dL TSH (0.465-4.680) mIU/L Free T4 (0.78-2.19) ng/dL Free T3 pg/mL (2.8-5.3) pg/ml - Radiology Data Radiology results: image reviewed (Chest x-ray shows no acute process) Disposition Clinical Impression: Near syncope Disposition: ADMITTED IP TO THIS HOSP Is patient prescribed a controlled substance at d/c from ED?: No Referrals: Humza Tolentino MD [Primary Care Provider] - 1-2 days Decision Time: 23:35
[2020-01-24 20:58] LABS: Basophils # (A) 0.1 k/uL (0-0.2); Basophils % (A) 1 %; Eosinophils # (A) 0.2 k/uL (0-0.7); Eosinophils % (A) 2 %; HCT 42.6 % (34.0-46.0); HGB 14.1 gm/dL (11.4-16.0); Lymphocytes # (A) 2.9 k/uL (1.0-4.8); Lymphocytes % (A) 29 %; MCH 31.5 pg (25.0-35.0); MCHC 33.2 g/dL (31.0-37.0); MCV 94.9 fL (80.0-100.0); Mean Platelet Volume 8.3; Monocytes # (A) 0.6 k/uL (0-1.0); Monocytes % (A) 6 %; Neutrophils % (A) 61 %; Platelet Count 275 k/uL (150-450); RBC 4.49 m/uL (3.80-5.40); RDW 13.4 % (11.5-15.5); WBC 9.9 k/uL (3.8-10.6)
[2020-01-24 21:12] LABS: D-Dimer 0.52 mg/L FEU (<0.60); INR 0.9 (<1.2); Partial Thromboplastin Time 22.2 sec (22.0-30.0); Prothrombin Time 9.4 sec (9.0-12.0)
[2020-01-24 21:16] LABS: Albumin 4.9 g/dL (3.5-5.0); Calcium 9.7 mg/dL (8.4-10.2); Magnesium 1.9 mg/dL (1.6-2.3); Potassium 3.5 mmol/L (3.5-5.1); Total Bilirubin 0.7 mg/dL (0.2-1.3); Total Protein 7.7 g/dL (6.3-8.2)
[2020-01-24 21:33] LABS: T4, Free (Free Thyroxine) 1.09 ng/dL (0.78-2.19)
--- NOTE | 2020-01-24 21:53 | XR ---
EXAMINATION TYPE: XR chest 2V DATE OF EXAM: 01/24/2020 COMPARISON: 10/27/2018 HISTORY: Short of breath TECHNIQUE: 2 views FINDINGS: Heart and mediastinum are normal. Lungs are clear. Diaphragm is normal. Bony thorax appears normal. There are chest leads. IMPRESSION: Normal chest. No change.
[2020-01-24] MEDS ORDERED: NALOXONE 0.4 MG/ML 1 ML VIAL IV PRN (23:35)
[2020-01-25] MEDS: SODIUM CHLORIDE 0.9% 1,000 ML IV SCH (06:37)
[2020-01-25] MEDS ORDERED: DOBUTamine DRIP for NUC MED 500 MG in DEXTROSE/WATER 1 250ML.BAG IV ONE (07:39)
--- NOTE | 2020-01-25 07:44 | P.HPIM ---
History of Present Illness H&P Date: 01/25/20 Chief Complaint: Near syncope, type 2 diabetes, obstructive sleep apnea, hyp ertension hyperl 69-year-old female one of Dr. Tolentino patient with multiple medical problem known to have history of type 2 diabetes, history of hypertension and hyperlipidemia who has chronic pain syndrome on pain management as well and have symptom of hyper/hypoglycemia on and off, who had heart catheter in 2013 with no major finding. Also seen cardiology in 2017 had echo and stress test were normal.. She presented to the emergency department at [facility] on 01/24/2020 complaining of sudden onset of dyspnea and palpitation over an hour it happen shortly after finishing her dinner with no exertion. And had mild suddenly shortness of breath become very sweaty lightheaded and almost had syncope. Her symptoms resolved over an hour and felt better afterward. [facility] any major abnormality except her blood sugar was mildly elevated chest x-ray didn't show any sign of infection at the time. Patient CK and troponin was negative. EKG showed sinus rhythm with first-degree AV block. With the current presentation and patient is high risk site admit patient overnight keep watching for any other abnormality or arrhythmia we'll consult cardiology repeat EKG and troponin. Review of Systems CONSTITUTIONAL: Well-developed no acute respiratory distress. EYES: No icterus sclerae, no conjunctivitis. EARS, NOSE, MOUTH, THROAT, and FACE: No sore throat, lymphadenopathy, carotid bruits or deformity. RESPIRATORY: No SOB cough or wheezes. CARDIOVASCULAR: No CP, Palpitation, PND, Orthopnea, or angina. GASTROINTESTINAL: No Abd pain, Nausea or vomiting, no Diarrhea or constipation, No GI Bleed, no distention or masses. GENITOURINARY: Negative for Hematuria or UTI, no kidney stones. INTEGUMENT/BREAST: Negative for any muscular injury with mild osteoarthritis.. HEMATOLOGIC/LYMPHATIC: Negative for bleed or purpura. MUSCULOSKELTAL: Negative for Myalgia or arthralgia. NEURLOGICAL: No LOC, Sz or syncope, blurred vision dizziness or abnormality.. BEHAVIORAL/PSYCH: Negative. ENDOCRINE: Negative. Past Medical History Past Medical History: Diabetes Mellitus, Hyperlipidemia, Hypertension, Oste oarthritis (OA), Sleep Apnea/CPAP/BIPAP, Thyroid Disorder Additional Past Medical History / Comment(s): uses CPAP Last Myocardial Infarction Date:: unknown History of Any Multi-Drug Resistant Organisms: None Reported Past Surgical History: Cholecystectomy, Heart Catheterization, Joint Replacement, Tubal Ligation Additional Past Surgical History / Comment(s): LEFT TOTAL KNEE, EGD, lap. jen fundoplication Past Anesthesia/Blood Transfusion Reactions: Previous Problems w/ Anesthesia Additional Past Anesthesia/Blood Transfusion Reaction / Comment(s): difficulty waking up after anes.1998 Past Psychological History: Depression Smoking Status: Never smoker Past Alcohol Use History: None Reported Past Drug Use History: None Reported - Past Family History Father Family Medical History: Congestive Heart Failure (CHF), Diabetes Mellitus Mother Family Medical History: COPD, Hypertension Brother(s) Family Medical History: Coronary Artery Disease (CAD), Diabetes Mellitus Medications and Allergies Home Medications Medication Instructions Recorded Confirmed Type Hydrochlorothiazide [Hydrodiuril] 25 mg PO Q48H 06/07/14 12/14/18 History Levothyroxine Sodium [Synthroid] 25 mcg PO QAM 06/07/14 12/14/18 History Losartan [Cozaar] 50 mg PO DAILY 06/07/14 12/14/18 History Metoprolol Succinate 25 mg PO DAILY 06/07/14 12/14/18 History Rosuvastatin [Crestor] 20 mg PO DAILY 10/27/17 12/14/18 History sitaGLIPtin [Januvia] 100 mg PO DAILY 10/27/17 12/14/18 History Cholecalciferol (Vitamin D3) 4,000 unit PO DAILY 11/29/17 12/14/18 History [Vitamin D3] Triamcinolone 0.025% Cream 1 applic TOPICAL BID PRN 11/29/17 12/14/18 History [Kenalog 0.025% Cream] busPIRone HCL 15 mg PO DAILY 11/29/17 12/14/18 History metFORMIN HCL ER [Glucophage Xr] 1,000 mg PO AC-BID 11/29/17 12/14/18 History Turmeric Root Extract [Turmeric] 500 mg PO DAILY 09/09/18 12/14/18 History diphenhydrAMINE HCL [Benadryl] 50 mg PO HS 09/09/18 12/14/18 History Aspirin [Adult Low Dose Aspirin EC] 81 mg PO HS 12/03/18 12/14/18 History DULoxetine HCL [Cymbalta] 60 mg PO DAILY 12/03/18 12/14/18 History Multivitamins, Thera [Multivitamin 1 tab PO DAILY 12/03/18 12/14/18 History (formulary)] DULoxetine HCL [Cymbalta] 30 mg PO DAILY 12/14/18 12/14/18 History Aspirin [Adult Low Dose Aspirin EC] 81 mg PO BID #60 tablet. 12/16/18 Rx HYDROcodone/APAP 7.5-325MG [[place] 1 - 2 each PO Q6HR PRN #42 tab 12/16/18 Rx 7.5] traMADol HCl [Ultram] 50 mg PO Q6H PRN #28 tab 12/16/18 Rx Allergies Allergy/AdvReac Type Severity Reaction Status Date / Time Penicillins Allergy Severe Dyspnea Verified 01/24/20 20:17 Physical Exam Vitals: Vital Signs Temp Pulse Resp BP Pulse Ox 01/25/20 02:37 53 L 16 114/62 98 01/24/20 22:33 68 17 111/61 96 01/24/20 20:12 97.9 F 85 20 111/77 99 Intake and Output 01/24/20 01/24/20 01/25/20 14:59 22:59 06:59 Other: Weight 99.79 kg General Appearance: Alert, cooperative, no distress, appears stated age. Neck HEENT: Supple, no lymphadenopathy, no thyroid enlargement, no carotid bruits. Lungs: Clear to auscultation without crackles or wheezes no rhonchi, no deformity. Chest Wall: Chest wall normal expansion with deep inspiration no tenderness and no deformity was found on exam, no costochondral pain or discomfort. Heart: Regular rate and rhythm, S1, S2 normal, no murmur, rub or gallop. Back: Symmetric, no curvature, ROM normal, no CVA tenderness. Abdomen: Soft, non-tender, bowel sounds active all four quadrants, no masses, no organomegaly. Extremities: Extremities normal, atraumatic, no cyanosis or edema. Pulses: 2+ and symmetric. Skin: Skin color, texture, tugor normal, no rashes or lesions. Neurologic: Alert oriented x3 cranial nerves II through XII intact, no motor deficit, no abnormal balance or gait. Results CBC & Chem 7: 01/24/20 20:45 01/24/20 20:45 Labs: Abnormal Lab Results - Last 24 Hours (Table) 01/24/20 Range/Units 20:45 Carbon Dioxide 20 L (22-30) mmol/L BUN 20 H (7-17) mg/dL Creatinine 1.05 H (0.52-1.04) mg/dL Glucose 280 H (74-99) mg/dL TSH 5.230 H (0.465-4.680) mIU/L Thrombosis Risk Factor Assmnt - DVT/VTE Prophylaxis DVT/VTE Prophylaxis: Pharmacologic Prophylaxis ordered, Mechanical Prophylaxis ordered Assessment and Plan Assessment: 1 presyncope: Not clear etiology patient had sign and symptom of arrhythmia not found an EKG on rhythm strip or laboratory monitor so far will admit patient to the hospital keep her on heart monitor consult cardiology continue metoprolol. Watch for the second and third troponin at this point. 2 atypical angina: Patient will be hospitalized continue heparin and nitro consult cardiology echocardiogram was ordered and patient be going for stress test unless her enzymes are elevated will last several for heart cath. 3 type 2 diabetes: Patient is on Januvia and metformin her blood sugar was quite bit elevated we'll continue Accu-Chek with sliding scales coverage with NovoLog patient might have hyper/hypoglycemia episode likely with her Januvia and metformin she is not supposed to be below 100. 4 hypertension: Remain on losartan and metoprolol continue medication. 5 chronic depression: Patient has been on BuSpar along with Cymbalta 90 mg daily. 6 hypothyroidism: Continue levothyroxine at 25 g daily. 7 hyperlipidemia: On atorvastatin 20 mg daily. 8 Chronic pain syndrome: Patient has been using hydrocodone 7.5 mg every 6 hours as needed. Continue Ultram for breakthrough pain as well. 9 stage II chronic kidney disease: We will continue mild hydration repeat lab in the morning. 10 GI prophylaxis: Patient be on Pepcid 20 mg daily. 11 DVT prophylaxis: Early mobilization and knee-high ANDREA hose. Admit patient to the hospital for observation one night stay.
--- NOTE | 2020-01-25 12:10 | P.CRDCN ---
History of Present Illness Consult date: 01/25/20 Chief complaint: Palpitation History of present illness: This is a very pleasant 69-year-old female patient with a past medical history significant for diabetes, hypertension, dyslipidemia, presented to the emergency room complaining of palpitation. The patient was in her usual state of health until yesterday when she was at home and suddenly she started experiencing "heart pounding". The symptoms were associated with dizziness but no syncope. No chest pain or chest discomfort. She did have mild shortness of breath with her symptoms. Also she was sweating profoundly during her symptoms. Because of that she decided to come to the emergency department. The EKG showed sinus rhythm without any ischemic ST or T-wave abnormalities. The cardiac enzymes were checked and came in to be unremarkable with a chest x-ray did not show any acute abnormalities. The blood work came in to be unremarkable except for mildly abnormal creatinine. Please note that the patient underwent heart catheterization in 2013 and that came in to be unremarkable. In 2016 when she was last seen in the office she underwent a stress test and that came in to be unremarkable. She seems to be very comfortable right now and she is asymptomatic from a cardiovascular standpoint overview. She underwent a carotid duplex study which we will follow-up with that. Beside that she needs to be ruled out for severe coronary artery disease by performing a stress test either as an inpatient or as an outpatient. Beside that she needs to have an event monitor to rule out any cardiac arrhythmia if she did not have any cardiac arrhythmia during her hospital stay. I discussed with the patient the testing including the stress test and echocardiogram and also the event monitor and I discussed with her the option about doing them as an inpatient or as an outpat ient. Past Medical History Past Medical History: Diabetes Mellitus, Hyperlipidemia, Hypertension, Osteoarthritis (OA), Sleep Apnea/CPAP/BIPAP, Thyroid Disorder Additional Past Medical History / Comment(s): uses CPAP Last Myocardial Infarction Date:: unknown History of Any Multi-Drug Resistant Organisms: None Reported Past Surgical History: Cholecystectomy, Heart Catheterization, Joint Replacement, Tubal Ligation Additional Past Surgical History / Comment(s): LEFT TOTAL KNEE, EGD, lap. jen fundoplication Past Anesthesia/Blood Transfusion Reactions: Previous Problems w/ Anesthesia Additional Past Anesthesia/Blood Transfusion Reaction / Comment(s): difficulty waking up after anes.1998 Past Psychological History: Depression Smoking Status: Never smoker Past Alcohol Use History: None Reported Past Drug Use History: None Reported - Past Family History Father Family Medical History: Congestive Heart Failure (CHF), Diabetes Mellitus Mother Family Medical History: COPD, Hypertension Brother(s) Family Medical History: Coronary Artery Disease (CAD), Diabetes Mellitus Medications and Allergies Home Medications Medication Instructions Recorded Confirmed Type Hydrochlorothiazide [Hydrodiuril] 25 mg PO Q48H 06/07/14 12/14/18 History Levothyroxine Sodium [Synthroid] 25 mcg PO QAM 06/07/14 12/14/18 History Losartan [Cozaar] 50 mg PO DAILY 06/07/14 12/14/18 History Metoprolol Succinate 25 mg PO DAILY 06/07/14 12/14/18 History Rosuvastatin [Crestor] 20 mg PO DAILY 10/27/17 12/14/18 History sitaGLIPtin [Januvia] 100 mg PO DAILY 10/27/17 12/14/18 History Cholecalciferol (Vitamin D3) 4,000 unit PO DAILY 11/29/17 12/14/18 History [Vitamin D3] Triamcinolone 0.025% Cream 1 applic TOPICAL BID PRN 11/29/17 12/14/18 History [Kenalog 0.025% Cream] busPIRone HCL 15 mg PO DAILY 11/29/17 12/14/18 History metFORMIN HCL ER [Glucophage Xr] 1,000 mg PO AC-BID 11/29/17 12/14/18 History Turmeric Root Extract [Turmeric] 500 mg PO DAILY 09/09/18 12/14/18 History diphenhydrAMINE HCL [Benadryl] 50 mg PO HS 09/09/18 12/14/18 History Aspirin [Adult Low Dose Aspirin EC] 81 mg PO HS 12/03/18 12/14/18 History DULoxetine HCL [Cymbalta] 60 mg PO DAILY 12/03/18 12/14/18 History Multivitamins, Thera [Multivitamin 1 tab PO DAILY 12/03/18 12/14/18 History (formulary)] DULoxetine HCL [Cymbalta] 30 mg PO DAILY 12/14/18 12/14/18 History Aspirin [Adult Low Dose Aspirin EC] 81 mg PO BID #60 tablet. 12/16/18 Rx HYDROcodone/APAP 7.5-325MG [Ralph 1 - 2 each PO Q6HR PRN #42 tab 12/16/18 Rx 7.5] traMADol HCl [Ultram] 50 mg PO Q6H PRN #28 tab 12/16/18 Rx Allergies Allergy/AdvReac Type Severity Reaction Status Date / Time Penicillins Allergy Severe Dyspnea Verified 01/24/20 20:17 Physical Exam Vitals: Vital Signs Temp Pulse Resp BP Pulse Ox 01/25/20 05:47 98.8 F 57 L 18 120/66 100 01/25/20 02:37 53 L 16 114/62 98 01/24/20 22:33 68 17 111/61 96 01/24/20 20:12 97.9 F 85 20 111/77 99 Intake and Output 01/24/20 01/25/20 01/25/20 22:59 06:59 14:59 Other: Weight 99.79 kg - Constitutional General appearance: no acute distress - Respiratory Respiratory: bilateral: CTA - Cardiovascular Rhythm: regular Heart sounds: normal: S1, S2 Abnormal Heart Sounds: systolic murmur Results 01/24/20 20:45 01/24/20 20:45 Cardiac Enzymes 01/24/20 01/24/20 01/25/20 Range/Units 20:45 20:45 03:07 AST 32 (14-36) U/L Troponin I <0.012 <0.012 (0.000-0.034) ng/mL 01/25/20 Range/Units 08:43 AST (14-36) U/L Troponin I <0.012 (0.000-0.034) ng/mL Coagulation 01/24/20 Range/Units 20:45 PT 9.4 (9.0-12.0) sec APTT 22.2 (22.0-30.0) sec CBC 01/24/20 Range/Units 20:45 WBC 9.9 (3.8-10.6) k/uL RBC 4.49 (3.80-5.40) m/uL Hgb 14.1 (11.4-16.0) gm/dL Hct 42.6 (34.0-46.0) % Plt Count 275 (150-450) k/uL Comprehensive Metabolic Panel 01/24/20 Range/Units 20:45 Sodium 137 (137-145) mmol/L Potassium 3.5 (3.5-5.1) mmol/L Chloride 98 (98-107) mmol/L Carbon Dioxide 20 L (22-30) mmol/L BUN 20 H (7-17) mg/dL Creatinine 1.05 H (0.52-1.04) mg/dL Glucose 280 H (74-99) mg/dL Calcium 9.7 (8.4-10.2) mg/dL AST 32 (14-36) U/L ALT 22 (4-34) U/L Alkaline Phosphatase 51 (38-126) U/L Total Protein 7.7 (6.3-8.2) g/dL Albumin 4.9 (3.5-5.0) g/dL Current Medications Generic Name Dose Route Start Last Admin Trade Name Freq PRN Reason Stop Dose Admin Sodium Chloride 1,000 mls @ 20 mls/hr 01/24/20 23:45 01/25/20 06:37 Saline 0.9% IV 20 mls/hr .Q24H GRIFFIN Administration Dobutamine HCl/Dextrose 500 mg 250 mls @ 29.937 mls/hr 01/25/20 07:39 / IV Solution IV 01/25/20 16:00 .Q8H22M ONE Protocol 10 MCG/KG/MIN Naloxone HCl 0.2 mg 01/24/20 23:35 Narcan IV Q2M PRN Opioid Reversal Intake and Output 01/24/20 01/25/20 01/25/20 22:59 06:59 14:59 Other: Weight 99.79 kg 01/24/20 20:45 01/24/20 20:45 Assessment and Plan Assessment: Assessment #1 palpitation #2 sweating #3 generalized weakness #4 presyncope #5 multiple comorbid conditions including diabetes, hypertension, dyslipidemia Plan #1 acute coronary event was ruled out #2 the patient need to have a stress test to rule out severe CAD #3 obtain an echocardiogram was Doppler #4 watch for cardiac arrhythmia #5 event monitor if no cardiac arrhythmia detected #6 follow-up with the patient Thank you for allowing us participate in her care
--- NOTE | 2020-01-25 15:03 | US ---
EXAMINATION TYPE: US carotid duplex BILAT DATE OF EXAM: 01/25/2020 COMPARISON: NONE CLINICAL HISTORY: Near syncope. Patient states having a spell where she was sweating and heart was ra cing. HTN controlled with meds. EXAM MEASUREMENTS: RIGHT: Peak Systolic Velocity (PSV) cm/sec ----- Right CCA: 81.2 ----- Right ICA: 90.5 ----- Right ECA: 84.0 ICA/CCA ratio: 1.1 RIGHT: End Diastole cm/sec ----- Right CCA: 21.9 ----- Right ICA: 37.4 ----- Right ECA: 0.0 LEFT: Peak Systolic Velocity (PSV) cm/sec ----- Left CCA: 77.9 ----- Left ICA: 91.1 ----- Left ECA: 24.1 ICA/CCA ratio: 1.2 LEFT: End Diastole cm/sec ----- Left CCA: 19.7 ----- Left ICA: 24.1 ----- Left ECA: 11.5 VERTEBRALS (direction of flow): Right Vertebral: Antegrade Left Vertebral: Antegrade Rhythm: Normal No plaque, wall thickening, elevated velocities or significant stenosis. Grayscale, color Doppler, spectral Doppler imaging performed of the carotid arteries. Waveform analysis does not show significa nt stenosis of the internal carotid arteries. IMPRESSION: No hemodynamic significant stenosis of the internal carotid arteries by Doppler criteria , an indirect measurement of carotid stenosis
[2020-01-25 21:18] LABS: Glucose,Whole Blood 235 mg/dL (75-99)
[2020-01-25] MEDS ORDERED: ALPRAZolam 0.25 MG TAB PO PRN (22:26)
[2020-01-26 06:02] LABS: Glucose,Whole Blood 223 mg/dL (75-99)
[2020-01-26] MEDS: INSULIN ASPART (NovoLOG) 100 UNIT/ML VIAL SQ SCH ×4 (06:24→20:59)
[2020-01-26] MEDS: SODIUM CHLORIDE 0.9% 1,000 ML IV SCH ×2 (06:24→21:00)
[2020-01-26] MEDS: ATORVASTATIN 40 MG TAB PO SCH (10:49)
[2020-01-26] MEDS: CHOLECALCIFEROL 1,000 UNIT TAB PO SCH (10:49)
[2020-01-26] MEDS: amLODIPine 2.5 MG TAB PO SCH (10:49)
[2020-01-26] MEDS: metFORMIN 500 MG TAB PO SCH ×2 (10:49→17:04)
[2020-01-26] MEDS: LEVOTHYROXINE 25 MCG TAB PO SCH (10:49)
[2020-01-26] MEDS: LINAGLIPTIN 5 MG TABLET PO SCH (10:49)
[2020-01-26] MEDS: DULoxetine HCL 60 MG CAPSULE.DR PO SCH (10:49)
[2020-01-26] MEDS: FAMOTIDINE 20 MG TAB PO SCH (10:49)
[2020-01-26] MEDS: HYDROCHLOROTHIAZIDE 25 MG TAB PO SCH (10:50)
[2020-01-26] MEDS: ASPIRIN 81 MG PO SCH ×2 (10:50→20:58)
[2020-01-26 11:58] LABS: Glucose,Whole Blood 352 mg/dL (75-99)
[2020-01-26 12:59] VITALS: RESP 16
--- NOTE | 2020-01-26 15:40 | P.PN ---
Subjective Progress Note Date: 01/26/20 This is a very pleasant 69-year-old female patient with a past medical history significant for diabetes, hypertension, dyslipidemia, presented to the emergency room complaining of palpitation. The patient was in her usual state of health until yesterday when she was at home and suddenly she started experiencing "heart pounding". The symptoms were associated with dizziness but no syncope. No chest pain or chest discomfort. She did have mild shortness of breath with her symptoms. Also she was sweating profoundly during her symptoms. Because of that she decided to come to the emergency department. The EKG showed sinus rhythm without any ischemic ST or T-wave abnormalities. The cardiac enzymes were checked and came in to be unremarkable with a chest x-ray did not show any acute abnormalities. The blood work came in to be unremarkable except for mildly abnormal creatinine. Please note that the patient underwent heart catheterization in 2013 and that came in to be unremarkable. In 2016 when she was last seen in the office she underwent a stress test and that came in to be unremarkable. She was seen in consultation by Dr. Field yesterday and recommended today to undergo a stress test. Seen and examined today, denied any chest discomfort and breathing overall is stable. Stress test and echo remains pending. Objective - Vital Signs Vital signs: Vital Signs Temp 97.3 F L 01/26/20 12:00 Pulse 55 L 01/26/20 12:00 Resp 16 01/26/20 12:00 BP 118/73 01/26/20 12:00 Pulse Ox 99 01/26/20 12:00 Intake & Output 01/25/20 01/26/20 01/26/20 18:59 06:59 18:59 Intake Total 250 480 Output Total 0 Balance 250 480 Weight 102.2 kg 102.2 kg Intake: IV 10 60 .9 10 60 Oral 240 420 Output: Urine 0 Other: Voiding Method Toilet Toilet # Voids 0 - Exam PHYSICAL EXAMINATION: GENERAL: 69-year-old female in no acute distress at the time of my examination HEENT: Head is atraumatic, normocephalic. Pupils equal, round. Sclera anicteric. Conjunctiva are clear. Mucous membranes of the mouth are moist. Neck is supple. There is no elevated jugular venous pressure. No carotid bruit is heard. HEART EXAMINATION: Heart S1, S2 normal. No murmur or gallop heard. CHEST EXAMINATION: Lungs are clear to auscultation and precussion. No chest wall tenderness is noted on palpation or with deep breathing. ABDOMEN: Soft, nontender. Bowel sounds are heard. No organomegaly noted. EXTREMITIES: 2+ peripheral pulses with no evidence of peripheral edema and no calf tenderness noted. NEUROLOGIC patient is awake, alert and oriented 3 . . - Labs CBC & Chem 7: 01/24/20 20:45 01/24/20 20:45 Labs: Abnormal Lab Results - Last 24 Hours (Table) 01/25/20 01/26/20 01/26/20 Range/Units 21:17 06:00 11:56 POC Glucose (mg/dL) 235 H 223 H 352 H (75-99) mg/dL Assessment and Plan Plan: Assessment #1 palpitations #2 sweating #3 generalized weakness #4 presyncope #5 multiple comorbid conditions including diabetes, hypertension, dyslipidemia Plan We will review the results of the echocardiogram with Doppler study as well as a stress test, if negative, then from our perspective the patient may be able to be discharged home today, we will make a follow-up appointment in the office post discharge. DNP note has been reviewed, I agree with a documented findings and plan of care. Patient was seen and examined.
--- NOTE | 2020-01-26 15:44 | P.STRESS ---
- Stress Test Note Stress Test Results/Findings: Exam Performed: dobutamine stress echo Exam Date: 01/26/20 Reason for Exam: Short of Breath Height: 5 ft 7 in Weight: 102.2 kg Protocol: Dobutamine Stage: 40 Duration of Exercise: 11:53 Resting Heart Rate: 57 Resting Blood Pressure: 139/61 Maximum Achieved Heart Rate: 126 Maximum Achieved Blood Pressure: 142/57 85% PMHR: 128 100% PMHR: 150 METS: na Technologist Comment: Stress Test Results/Findings: Baseline heart rate 57 beats a minute, Baseline blood pressure 139/61 mmHg Twelve-lead ECG shows sinus rhythm with nonspecific ST-T abnormalities Patient received dobutamine infusion per protocol This is no ECG ms for ischemia Frequent PACs and PVCs are noted line no sustained or nonsustained arrhythmias noted Baseline 2-D echo images were suboptimal and Definity contrast was used Baseline LV size and systolic function was normal without any wall motion abnormalities There was a stepwise increment in overall LV contractility with increasing doses of dobutamine without development of any wall motion abnormalities @Recovery regional global LV systolic function with normal Impression No ECG or echocardiographic evidence for ischemia Frequent PACs and PVCs but no nonsustained or sustained arrhythmias
[2020-01-26] MEDS: METOPROLOL SUCCINATE (ER) 25 MG TAB.ER.24H PO SCH (16:25)
[2020-01-26 16:43] LABS: Glucose,Whole Blood 174 mg/dL (75-99)
--- NOTE | 2020-01-26 20:03 | ECHOF ---
Referral Reason:Near syncope MEASUREMENTS -------- HEIGHT: 170.2 cm WEIGHT: 102.1 kg BP: 147/82 IVSd: 1.2 cm (0.6 - 1.1) LVIDd: 3.5 cm (3.9 - 5.3) LVPWd: 1.5 cm (0.6 - 1.1) IVSs: 1.9 cm LVIDs: 2.2 cm LVPWs: 1.6 cm RVIDd: 4.2 cm (< 3.3) LAESV Index (A-L): 25.19 ml/m Ao Diam: 3.4 cm (2.0 - 3.7) AV Cusp: 2.1 cm (1.5 - 2.6) EPSS: 0.4 cm MV E Paul: 0.79 m/s MV DecT: 284 ms MV A Paul: 0.71 m/s MV E/A Ratio: 1.10 RAP: 5.00 mmHg RVSP: 29.65 mmHg MV EF SLOPE: 105.32 mm/s (70 - 150) MV EXCURSION: 23.60 mm (> 18.000) FINDINGS -------- Resting bradycardia (HR<60bpm). This was a technically adequate study. The left ventricular size is normal. There is mild concentric left ventricular hypertrophy. Overa ll left ventricular systolic function is normal with, an EF between 55 - 60 %. The diastolic fillin g pattern is normal for the age of the patient 9.86. The right ventricle is moderately enlarged. Normal LA size by volume 22+/-6 ml/m2. The right atrial size is normal. Interatrial and interventricular septum intact. The aortic valve is trileaflet and appears structurally normal. There is no evidence of aortic regu rgitation. There is no evidence of aortic stenosis. Mild mitral regurgitation is present. Mild tricuspid regurgitation present. There is no evidence of pulmonary hypertension. The right v entricular systolic pressure, as measured by Doppler, is 29.65mmHg. Trace/mild (physiologic) pulmonic regurgitation. The aortic root size is normal. Normal inferior vena cava with normal inspiratory collapse consistent with estimated right atrial pre ssure of 5 mmHg. There is no pericardial effusion. CONCLUSIONS -------- 1. Resting bradycardia (HR<60bpm). 2. This was a technically adequate study. 3. The left ventricular size is normal. 4. There is mild concentric left ventricular hypertrophy. 5. Overall left ventricular systolic function is normal with, an EF between 55 - 60 %. 6. The diastolic filling pattern is normal for the age of the patient 9.86 7. The right ventricle is moderately enlarged. 8. Normal LA size by volume 22+/-6 ml/m2. 9. The right atrial size is normal. 10. Interatrial and interventricular septum intact. 11. The aortic valve is trileaflet and appears structurally normal. 12. There is no evidence of aortic regurgitation. 13. There is no evidence of aortic stenosis. 14. Mild mitral regurgitation is present. 15. Mild tricuspid regurgitation present. 16. There is no evidence of pulmonary hypertension. 17. The right ventricular systolic pressure, as measured by Doppler, is 29.65mmHg. 18. Trace/mild (physiologic) pulmonic regurgitation. 19. The aortic root size is normal. 20. Normal inferior vena cava with normal inspiratory collapse consistent with estimated right atrial pressure of 5 mmHg. 21. There is no pericardial effusion. MEASURER MACHINE: Rajwinder Camara RDCS
[2020-01-26 20:36] LABS: Glucose,Whole Blood 144 mg/dL (75-99)
[2020-01-27 06:11] LABS: Glucose,Whole Blood 214 mg/dL (75-99)
[2020-01-27] MEDS: LEVOTHYROXINE 25 MCG TAB PO SCH (06:24)
[2020-01-27] MEDS: INSULIN ASPART (NovoLOG) 100 UNIT/ML VIAL SQ SCH ×2 (06:24→12:49)
[2020-01-27] MEDS: metFORMIN 500 MG TAB PO SCH (06:24)
[2020-01-27] MEDS: DULoxetine HCL 60 MG CAPSULE.DR PO SCH (08:52)
[2020-01-27] MEDS: ATORVASTATIN 40 MG TAB PO SCH (08:52)
[2020-01-27] MEDS: FAMOTIDINE 20 MG TAB PO SCH (08:52)
[2020-01-27] MEDS: amLODIPine 2.5 MG TAB PO SCH (08:52)
[2020-01-27] MEDS: HYDROCHLOROTHIAZIDE 25 MG TAB PO SCH (08:52)
[2020-01-27] MEDS: CHOLECALCIFEROL 1,000 UNIT TAB PO SCH (08:52)
[2020-01-27] MEDS: LINAGLIPTIN 5 MG TABLET PO SCH (08:52)
[2020-01-27] MEDS: ASPIRIN 81 MG PO SCH (08:52)
[2020-01-27] MEDS: METOPROLOL SUCCINATE (ER) 25 MG TAB.ER.24H PO SCH (08:53)
--- NOTE | 2020-01-27 10:16 | P.PN ---
Subjective Progress Note Date: 01/26/20 69-year-old female one of Dr. Tolentino patient with multiple medical problem known to have history of type 2 diabetes, history of hypertension and hyperlipidemia who has chronic pain syndrome on pain management as well and have symptom of hyper/hypoglycemia on and off, who had heart catheter in 2013 with no major finding. Also seen cardiology in 2017 had echo and stress test were normal.. She presented to the emergency department at [facility] on 01/24/2020 complaining of sudden onset of dyspnea and palpitation over an hour it happen shortly after finishing her dinner with no exertion. And had mild suddenly shortness of breath become very sweaty lightheaded and almost had syncope. Her symptoms resolved over an hour and felt better afterward. Her lab from [facility] department did not show any major abnormality except her blood sugar was mildly elevated chest x-ray didn't show any sign of infection at the time. Patient CK and troponin was negative. EKG showed sinus rhythm with first-degree AV block. With the current presentation and patient is high risk site admit patient overnight keep watching for any other abnormality or arrhythmia we'll consult cardiology repeat EKG and troponin. 01/25: Patient has been seen by cardiology and plan is for stress test and possible need for event monitor to rule out cardiac arrhythmia. The patient denies any new complaints. She did have some bradycardia and 44 bpm. Echocardiogram reveals EF of 55-60% with mild concentric left ventricular hypertrophy, mild mitral regurgitation, mild tricuspid regurgitation. Troponins are negative on 3 draws. TSH 5.230, FT4 1.09, FT3 3.5. Discussed results of TSH being elevated but free T4 is normal. Recommend the patient have a recheck in the office and Dr. Tolentino will address this. Discharge plan is to return home. The patient will be discharged home once stress test is completed and cleared by oil bay technician. Objective - Vital Signs Vital signs: Vital Signs Temp 98.3 F 01/26/20 04:00 Pulse 71 01/26/20 04:00 Resp 16 01/26/20 04:00 BP 147/82 01/26/20 04:00 Pulse Ox 98 01/26/20 04:00 Intake & Output 01/25/20 01/26/20 01/26/20 18:59 06:59 18:59 Intake Total 250 Output Total 0 Balance 250 Weight 102.2 kg Intake: IV 10 .9 10 Oral 240 Output: Urine 0 Other: Voiding Method Toilet # Voids 0 - Exam Review of Systems CONSTITUTIONAL: Well-developed no acute respiratory distress. Denies fevers, denies chills. EYES: No icterus sclerae, no conjunctivitis. EARS, NOSE, MOUTH, THROAT, and FACE: No sore throat, lymphadenopathy, carotid bruits or deformity. RESPIRATORY: No SOB cough or wheezes. CARDIOVASCULAR: No CP, Palpitation, PND, Orthopnea, or angina. GASTROINTESTINAL: No Abd pain, Nausea or vomiting, no Diarrhea or constipation, No GI Bleed, no distention or masses. GENITOURINARY: Negative for Hematuria or UTI, no kidney stones. INTEGUMENT/BREAST: Negative for any muscular injury with mild osteoarthritis.. HEMATOLOGIC/LYMPHATIC: Negative for bleed or purpura. MUSCULOSKELTAL: Negative for Myalgia or arthralgia. NEURLOGICAL: No LOC, Sz or syncope, blurred vision dizziness or abnormality.. BEHAVIORAL/PSYCH: Negative. ENDOCRINE: Negative. Physical examination General Appearance: Alert, cooperative, no distress, appears stated age. Patient is resting in bed. Neck HEENT: Supple, no lymphadenopathy, no thyroid enlargement, no carotid bruits. Lungs: Clear to auscultation without crackles or wheezes no rhonchi, no deformity. Chest Wall: Chest wall normal expansion with deep inspiration no tenderness and no deformity was found on exam, no costochondral pain or discomfort. Heart: Regular rate and rhythm, S1, S2 normal, no murmur, rub or gallop. Back: Symmetric, no curvature, ROM normal, no CVA tenderness. Abdomen: Soft, non-tender, bowel sounds active all four quadrants, no masses, no organomegaly. Extremities: Extremities normal, atraumatic, no cyanosis or edema. Pulses: 2+ and symmetric. Skin: Skin color, texture, tugor normal, no rashes or lesions. Neurologic: Alert oriented x3 cranial nerves II through XII intact, no motor deficit, no abnormal balance or gait. - Labs CBC & Chem 7: 01/24/20 20:45 01/24/20 20:45 Labs: Abnormal Lab Results - Last 24 Hours (Table) 01/25/20 01/26/20 Range/Units 21:17 06:00 POC Glucose (mg/dL) 235 H 223 H (75-99) mg/dL Assessment and Plan Plan: 1 presyncope: Not clear etiology patient had sign and symptom of arrhythmia not found an EKG on rhythm strip or grid operator so far will admit patient to the hospital keep her on heart monitor consult cardiology continue metoprolol. Echocardiogram as above. Patient is scheduled for stress test and will be discharged home if cleared by cardiology. . 2 atypical angina: Stress test. 3 type 2 diabetes: Patient is on Januvia and metformin her blood sugar was quite bit elevated we'll continue Accu-Chek with sliding scales coverage with NovoLog patient might have hyper/hypoglycemia episode likely with her Januvia and metformin she is not supposed to be below 100. 4 hypertension: Remain on losartan and metoprolol continue medication. 5 recurrent depression: Patient has been on BuSpar along with Cymbalta 60 mg daily. 6 hypothyroidism: Continue levothyroxine at 25 g daily. 7 hyperlipidemia: On atorvastatin 20 mg daily. 8 Chronic pain syndrome: Patient has been using hydrocodone 7.5 mg every 6 hours as needed. Continue Ultram for breakthrough pain as well. 9 stage II chronic kidney disease: We will continue mild hydration repeat lab in the morning. 10 GI prophylaxis: Patient be on Pepcid 20 mg daily. 11 DVT prophylaxis: Early mobilization and knee-high ANDREA hose. Discharge plan: Home Impression and plan of care have been directed as dictated by the signing loraine abbott. Lisa Garza nurse practitioner acting as scribe for signing physician.
--- NOTE | 2020-01-27 10:32 | P.DS ---
Providers Date of admission: 01/24/20 23:36 Expected date of discharge: 01/27/20 Attending physician: Slade Dukes Consults: 01/24/20 23:36 Consult Physician Urgent Consulting Provider: Refugio Field Consult Reason/Comments: near syncope Do you want consulting provider notified?: Yes Primary care physician: Humza Tolentino [facility] Course: 69-year-old female one of Dr. Tolentino patient with multiple medical problem known to have history of type 2 diabetes, history of hypertension and hyperlipidemia who has chronic pain syndrome on pain management as well and have symptom of hyper/hypoglycemia on and off, who had heart catheter in 2013 with no major finding. Also seen cardiology in 2017 had echo and stress test were normal.. She presented to the emergency department at [facility] on 01/24/2020 complaining of sudden onset of dyspnea and palpitation over an hour it happen shortly after finishing her dinner with no exertion. And had mild suddenly shortness of breath become very sweaty lightheaded and almost had syncope. Her symptoms resolved over an hour and felt better afterward. [facility] show any major abnormality except her blood sugar was mildly elevated chest x-ray didn't show any sign of infection at the time. Patient CK and troponin was negative. EKG showed sinus rhythm with first-degree AV block. With the current presentation and patient is high risk site admit patient overnight keep watching for any other abnormality or arrhythmia we'll consult cardiology repeat EKG and troponin. 01/25: Patient has been seen by cardiology and plan is for stress test and possible need for event monitor to rule out cardiac arrhythmia. The patient denies any new complaints. She did have some bradycardia and 44 bpm. Echocardiogram reveals EF of 55-60% with mild concentric left ventricular hypertrophy, mild mitral regurgitation, mild tricuspid regurgitation. Troponins are negative on 3 draws. TSH 5.230, FT4 1.09, FT3 3.5. Discussed results of TSH being elevated but free T4 is normal. Recommend the patient have a recheck in the office and Dr. Tolentino will address this. Discharge plan is to return home. The patient will be discharged home once stress test is completed and cleared by management trainee marketing. 01/26: Stress test was completed yesterday and was negative for evidence of ischemia. There were frequent PACs and PVCs but no nonsustained or sustained arrhythmias. Patient denies any chest pain or shortness of breath. No lightheadedness or dizziness, she has had no presyncopal episodes. She has been afebrile, heart rate 57, blood pressure 122/75, pulse ox 98% on 2 L nasal cannula. Heart rate has been running in the 50s and metoprolol will be placed on hold until she has further follow-up and event monitor to be arranged prior to discharge. Patient will be discharged home today in stable condition. Discharge diagnoses: 1 presyncope: Not clear etiology 2 atypical angina 3 type 2 diabetes 4 hypertension 5 recurrent depression 6 hypothyroidism 7 hyperlipidemia 8 Chronic pain syndrome 9 stage II chronic kidney disease Discharge plan: Home Impression and plan of care have been directed as dictated by the signing physician. Lisa Garza nurse practitioner acting as scribe for signing physician. Patient Condition at Discharge: Good Plan - Discharge Summary Discharge Rx Participant: Yes New Discharge Prescriptions: New DULoxetine HCL [Cymbalta] 60 mg PO DAILY capsule. metFORMIN HCL [Glucophage] 1,000 mg PO AC-BID tab Continue Hydrochlorothiazide [Hydrodiuril] 25 mg PO DAILY Levothyroxine Sodium [Synthroid] 25 mcg PO QAM sitaGLIPtin [Januvia] 100 mg PO DAILY Rosuvastatin [Crestor] 20 mg PO DAILY Cholecalciferol (Vitamin D3) [Vitamin D3] 4,000 unit PO DAILY Aspirin [Adult Low Dose Aspirin EC] 81 mg PO BID #60 tablet. amLODIPine [Norvasc] 2.5 mg PO DAILY Discontinued Metoprolol Succinate 25 mg PO DAILY Discharge Medication List Hydrochlorothiazide [Hydrodiuril] 25 mg PO DAILY 06/07/14 [History] Levothyroxine Sodium [Synthroid] 25 mcg PO QAM 06/07/14 [History] Rosuvastatin [Crestor] 20 mg PO DAILY 10/27/17 [History] sitaGLIPtin [Januvia] 100 mg PO DAILY 10/27/17 [History] Cholecalciferol (Vitamin D3) [Vitamin D3] 4,000 unit PO DAILY 11/29/17 [History] Aspirin [Adult Low Dose Aspirin EC] 81 mg PO BID #60 tablet. 12/16/18 [Rx] amLODIPine [Norvasc] 2.5 mg PO DAILY 01/25/20 [History] DULoxetine HCL [Cymbalta] 60 mg PO DAILY capsule. 01/27/20 [Rx] metFORMIN HCL [Glucophage] 1,000 mg PO AC-BID tab 01/27/20 [Rx] Follow up Appointment(s)/Referral(s): Higinio Munoz MD [STAFF PHYSICIAN] - 1 Week Humza Tolentino MD [Primary Care Provider] - 1 Week Activity/Diet/Wound Care/Special Instructions: Event monitor Discharge Disposition: HOME SELF-CARE
--- NOTE | 2020-01-27 10:54 | P.PN ---
Subjective Progress Note Date: 01/27/20 This is a very pleasant 69-year-old female patient with a past medical history significant for diabetes, hypertension, dyslipidemia, presented to the emergency room complaining of palpitation. The patient was in her usual state of health until yesterday when she was at home and suddenly she started experiencing "heart pounding". The symptoms were associated with dizziness but no syncope. No chest pain or chest discomfort. She did have mild shortness of breath with her symptoms. Also she was sweating profoundly during her symptoms. Because of that she decided to come to the emergency department. The EKG showed sinus rhythm without any ischemic ST or T-wave abnormalities. The cardiac enzymes were checked and came in to be unremarkable with a chest x-ray did not show any acute abnormalities. The blood work came in to be unremarkable except for mildly abnormal creatinine. Please note that the patient underwent heart catheterization in 2013 and that came in to be unremarkable. In 2016 when she was last seen in the office she underwent a stress test and that came in to be unremarkable. She was seen in consultation by Dr. Field yesterday and recommended today to undergo a stress test. Seen and examined today, denied any chest discomfort and breathing overall is stable. Stress test and echo remains pending. 01/27/2020 Patient was seen and examined this morning, denies any chest pain or shortness of breath. She does complain of feeling very tired today. Stress test results came back yesterday negative for any reversible ischemia, her echo results also showed a normal left ventricular systolic function, from our perspective the patient could've been discharged home yesterday afternoon. Through the night last night she states that she slept well, continues to feel very tired. Her TSH level came back elevated at 5.2, she does currently take Synthroid, perhaps we should consider increasing the dose slightly. Objective - Vital Signs Vital signs: Vital Signs Temp 98.0 F 01/27/20 04:00 Pulse 57 L 01/27/20 04:00 Resp 16 01/27/20 04:00 BP 122/75 01/27/20 04:00 Pulse Ox 98 01/27/20 04:00 Intake & Output 01/26/20 01/27/20 01/27/20 18:59 06:59 18:59 Intake Total 720 10 240 Balance 720 10 240 Weight 102.2 kg 101.5 kg Intake: IV 60 10 .9 60 10 Oral 660 240 Other: Voiding Method Toilet Toilet # Voids 2 - Exam PHYSICAL EXAMINATION: GENERAL: 69-year-old female in no acute distress at the time of my examination HEENT: Head is atraumatic, normocephalic. Pupils equal, round. Sclera anicteric. Conjunctiva are clear. Mucous membranes of the mouth are moist. Neck is supple. There is no elevated jugular venous pressure. No carotid bruit is heard. HEART EXAMINATION: Heart S1, S2 normal. No murmur or gallop heard. CHEST EXAMINATION: Lungs are clear to auscultation and precussion. No chest wall tenderness is noted on palpation or with deep breathing. ABDOMEN: Soft, nontender. Bowel sounds are heard. No organomegaly noted. EXTREMITIES: 2+ peripheral pulses with no evidence of peripheral edema and no calf tenderness noted. NEUROLOGIC patient is awake, alert and oriented 3 . . - Labs CBC & Chem 7: 01/24/20 20:45 01/24/20 20:45 Labs: Abnormal Lab Results - Last 24 Hours (Table) 01/26/20 01/26/20 01/26/20 Range/Units 11:56 16:41 20:34 POC Glucose (mg/dL) 352 H 174 H 144 H (75-99) mg/dL 01/27/20 Range/Units 06:10 POC Glucose (mg/dL) 214 H (75-99) mg/dL Assessment and Plan Plan: Assessment #1 palpitations #2 sweating #3 generalized weakness #4 presyncope #5 multiple comorbid conditions including diabetes, hypertension, dyslipidemia Plan Stress test came back negative for any reversible ischemia, echo showed normal left ventricular systolic function. TSH level 5.23. From cardiology's perspective, patient may be able to be discharged home today and follow-up in the office post discharge. Consider increasing the dose of Synthroid from 25 mics to 50 mics. DNP note has been reviewed, I agree with a documented findings and plan of care. Patient was seen and examined.
[2020-01-27 11:20] LABS: Glucose,Whole Blood 183 mg/dL (75-99)
[2020-01-27 11:51] VITALS: BP 135/85; PULSE 67; TEMP 97.9
[2020-01-28] MEDS ORDERED: LEVOTHYROXINE 75 MCG TAB PO SCH (06:30)
[2020-01-28] MEDS ORDERED: ASPIRIN 81 MG PO SCH (09:00)
== END 2020-01-27 15:39 | disposition home or self-care (01) | DRG 312 ==
LOC: EC 20:11 → 3SCARD 23:36 → UNDODISOB 01-25 21:05 → OBSVTOIN 01-26 09:48
PROVIDERS: ADMIT Internal Medicine Geriatric Medicine; ATTEND Internal Medicine Geriatric Medicine
DX: R55 Syncope and collapse (principal); F33.9 Major depressive disorder, recurrent, unspecified; E03.9 Hypothyroidism, unspecified; E11.22 Type 2 diabetes mellitus with diabetic chronic kidney disease; E78.5 Hyperlipidemia, unspecified; G47.33 Obstructive sleep apnea (adult) (pediatric); G89.4 Chronic pain syndrome; I12.9 Hypertensive chronic kidney disease with stage 1 through stage 4 chronic kidney disease, or unspecified chronic kidney disease; E11.65 Type 2 diabetes mellitus with hyperglycemia; N18.2 Chronic kidney disease, stage 2 (mild); Z79.84 Long term (current) use of oral hypoglycemic drugs; I20.8 Other forms of angina pectoris; I44.0 Atrioventricular block, first degree; I49.1 Atrial premature depolarization; I49.3 Ventricular premature depolarization; Z98.51 Tubal ligation status; Z90.49 Acquired absence of other specified parts of digestive tract; Z79.82 Long term (current) use of aspirin; Z79.890 Hormone replacement therapy; Z79.899 Other long term (current) drug therapy; Z82.49 Family history of ischemic heart disease and other diseases of the circulatory system; Z82.5 Family history of asthma and other chronic lower respiratory diseases; Z83.3 Family history of diabetes mellitus; Z88.0 Allergy status to penicillin
CPT/HCPCS: 36415; 71046; 80053; 82550; 83735; 84439; 84443; 84481; 84484; 85025; 85379; 85610; 85730; 93005; 93270; 93306; 93351; 93880; 99285

== ENCOUNTER 2020-02-15 11:00 | Outpatient (CLI) | payer MEDICARE, OTHER | END 2020-02-15 12:09 | disposition home or self-care (01) | LOC: LABWHC1 11:00 | PROVIDERS: ATTEND Internal Medicine Clinical Cardiac Electrophysiology | DX: Z53.9 Procedure and treatment not carried out, unspecified reason (principal) ==

== ENCOUNTER → 2020-02-29 | Outpatient (CLI) | payer MEDICARE, OTHER ==
[2020-02-29 12:33] LABS: African American GFR (CKD) >90 (>60 ml/min/1.73 sqM); Blood Urea Nitrogen 21 mg/dL (7-17); Non-African American GFR(CKD) 86 (>60 ml/min/1.73 sqM)
--- NOTE | 2020-02-29 15:40 | CT ---
EXAMINATION TYPE: CT abdomen w con DATE OF EXAM: 02/29/2020 COMPARISON: NONE HISTORY: 69-year-old female C71.02, carcinoid syndrome, liver/pancreas mass Upper Abdominal pain TECHNIQUE: Contiguous axial scanning of the abdomen following administration of 100 ml Omnipaque 300 IV contrast. Delayed images through the kidneys and coronal/sagittal reconstructions performed. CT DLP: 1645 mGycm Automated exposure control for dose reduction was used. FINDINGS: Heart normal size without pericardial effusion. Lung bases clear without pleural effusion. Post surgical changes of Yessy fundoplication. Recurrent small hiatal hernia. 2.4 cm right hepatic dome cyst. Additional centrally located hepatic cyst measuring 3.0 cm posteriorl y measuring 4.0 cm. Smaller hepatic hypodensities too small for accurate CT characterization likely r epresent additional cysts. The heart is enlarged at 21.8 cm. No biliary ductal dilatation. Portal venous system is patent. Adrenal glands, right kidney, spleen, and pancreas appear within normal limits. Tiny 4 mm cortical hypodensity anterior mid left kidney too small fractured CT characterization, like ly tiny cyst. No dilated small bowel, free fluid, free air. No mesenteric or retroperitoneal lymphadenopathy. Mild stool burden. Normal appendix. No pericolonic inflammatory change. Pelvis is not imaged. Bones: Facet arthropathy lower lumbar spine. Multilevel moderate degenerative disc disease. IMPRESSION: 1. MULTIPLE HEPATIC LESIONS MEASURING UP TO 4.0 CM ARE MOST SUGGESTIVE OF BENIGN CYSTS. SOME OF THESE LESIONS ARE TOO SMALL FOR ACCURATE CT CHARACTERIZATION AND LIKELY ALSO REPRESENT CYSTS. IF MORE DEFI NITIVE CHARACTERIZATION IS DESIRED, CONSIDER LIVER MRI. 2. HEPATOMEGALY AT 21.8 CM. 3. NO DISCRETE PANCREATIC LESION. 4. STATUS POST YESSY FUNDOPLICATION WITH A RECURRENT SMALL HIATAL HERNIA.
== END | disposition home or self-care (01) ==
LOC: RADCTMAIN 11:39
PROVIDERS: ATTEND Physician Assistant
DX: K76.89 Other specified diseases of liver (principal); R16.0 Hepatomegaly, not elsewhere classified; K44.9 Diaphragmatic hernia without obstruction or gangrene; Z98.890 Other specified postprocedural states; E34.0 Carcinoid syndrome; C7B.02 Secondary carcinoid tumors of liver; Z88.0 Allergy status to penicillin
CPT/HCPCS: 82565; 84520; 74160; 36415; Q9967

== ENCOUNTER → 2020-03-22 | Outpatient (CLI) | payer MEDICARE, OTHER ==
[2020-03-22 16:52] LABS: African American GFR (CKD) 75.1 (60.0-200.0); Albumin 4.4 g/dL (3.80-4.90); Albumin/Globulin Ratio 2.1 (1.60-3.17); Anion Gap 9.8 mmol/L (4.00-12.00); BUN/Creat Ratio 14.44 Ratio (12.00-20.00); Calcium 9.6 mg/dL (8.7-10.3); Carbon Dioxide 29.2 mmol/L (21.6-31.8); Chol/HDL Ratio 2.53; Globulin 2.1 g/dL (1.6-3.3); LDL Cholesterol,Calculated 26.6 mg/dL (0.0-131.0); Non-African American GFR(CKD) 64.8 (60.0-200.0); Potassium 3.7 mmol/L (3.5-5.5); Total Bilirubin 0.9 mg/dL (0.3-1.2); Total Protein 6.5 g/dL (6.2-8.2); VLDL Calculation 31.4 mg/dL (5.00-40.00)
[2020-03-22 21:30] LABS: Hemoglobin A1C 8.7 % (4.0-6.0)
== END | disposition home or self-care (01) ==
LOC: LABWHC1 08:58
PROVIDERS: ATTEND Internal Medicine Geriatric Medicine
DX: E03.9 Hypothyroidism, unspecified (principal); E11.9 Type 2 diabetes mellitus without complications
CPT/HCPCS: 36415; 80053; 80061; 83036; 84439; 84443

== ENCOUNTER 2021-02-14 07:48 | Emergency (ER) | payer MEDICARE, OTHER ==
[2021-02-14 07:51] VITALS: RESP 18
--- NOTE | 2021-02-14 08:20 | ED ---
Lower Extremity Injury HPI - General Chief Complaint: Extremity Injury, Lower Stated Complaint: Rt Foot Injury Time Seen by Provider: 02/14/21 07:57 Source: patient Mode of arrival: wheelchair Limitations: physical limitation - History of Present Illness Initial Comments: Patient is a 70-year-old female presenting to the emergency Department with complaints of right foot pain since yesterday. Patient states she was walking back to her house and she stepped in a hole and twisted her right foot. She has been limping on the area, and noticed swelling and redness today so came in for evaluation. She denies any previous injuries of her right foot, she did fracture her left foot in the past. She denies any other complaints today. - Related Data Home Medications Medication Instructions Recorded Confirmed Levothyroxine Sodium [Synthroid] 25 mcg PO QAM 06/07/14 01/26/20 hydroCHLOROthiazide [Hydrodiuril] 25 mg PO DAILY 06/07/14 01/26/20 Rosuvastatin [Crestor] 20 mg PO DAILY 10/27/17 01/26/20 sitaGLIPtin [Januvia] 100 mg PO DAILY 10/27/17 01/26/20 Cholecalciferol (Vitamin D3) 4,000 unit PO DAILY 11/29/17 01/26/20 [Vitamin D3] amLODIPine [Norvasc] 2.5 mg PO DAILY 01/25/20 01/26/20 Previous Rx's Medication Instructions Recorded Aspirin [Adult Low Dose Aspirin EC] 81 mg PO BID #60 tablet. 12/16/18 DULoxetine HCL [Cymbalta] 60 mg PO DAILY capsule. 01/27/20 metFORMIN HCL [Glucophage] 1,000 mg PO AC-BID tab 01/27/20 Allergies Allergy/AdvReac Type Severity Reaction Status Date / Time Penicillins Allergy Severe Dyspnea Verified 02/14/21 07:51 Review of Systems ROS Statement: Those systems with pertinent positive or pertinent negative responses have been documented in the HPI. ROS Other: All systems not noted in ROS Statement are negative. Past Medical History Past Medical History: Diabetes Mellitus, Hyperlipidemia, Hypertension, Osteoarthritis (OA), Sleep Apnea/CPAP/BIPAP, Thyroid Disorder Additional Past Medical History / Comment(s): uses CPAP Last Myocardial Infarction Date:: unknown History of Any Multi-Drug Resistant Organisms: None Reported Past Surgical History: Cholecystectomy, Heart Catheterization, Joint Replacement, Tubal Ligation Additional Past Surgical History / Comment(s): LEFT and Right TOTAL KNEE, EGD, lap. jen fundoplication Past Anesthesia/Blood Transfusion Reactions: Previous Problems w/ Anesthesia Additional Past Anesthesia/Blood Transfusion Reaction / Comment(s): difficulty waking up after anes.1998 Past Psychological History: Depression Smoking Status: Never smoker Past Alcohol Use History: None Reported Past Drug Use History: None Reported - Past Family History Father Family Medical History: Congestive Heart Failure (CHF), Diabetes Mellitus Mother Family Medical History: COPD, Hypertension Brother(s) Family Medical History: Coronary Artery Disease (CAD), Diabetes Mellitus General Exam - General Exam Comments Initial Comments: GENERAL: Patient is well-developed and well-nourished. Patient is nontoxic and in no acute distress. HEAD: Atraumatic, normocephalic. EYES: Pupils equal round and reactive to light, extraocular movements intact, sclera anicteric, conjunctiva are normal. Eyelids were unremarkable. ENT: Nares patent, oropharynx clear without exudates. Moist mucous membranes. NECK: Normal range of motion, supple without lymphadenopathy or JVD. LUNGS: Unlabored respirations. Breath sounds clear to auscultation bilaterally and equal. No wheezes rales or rhonchi. HEART: Regular rate and rhythm without murmurs, rubs or gallops. ABDOMEN: Soft, nontender, normoactive bowel sounds. No guarding, no rebound. No masses appreciated. : Deferred MUSCULOSKELETAL: Patient has pain with palpation along the lateral right foot, near the base of the fifth metatarsal. She does have full range of motion of her toes, no pain of the right ankle. She does have some mild swelling to the area. No clubbing or cyanosis. NEUROLOGICAL: Patient is alert and oriented x 3. PSYCH: Normal mood, normal affect. SKIN: Warm, Dry, normal turgor, no rashes or lesions noted. Limitations: physical limitation Course Vital Signs 02/14/21 07:49 Temperature 97.7 F Pulse Rate 66 Respiratory 18 Rate Blood Pressure 136/82 O2 Sat by Pulse 97 Oximetry Procedures - Orthopedic Splinting/Casting Injury #1 Side: right Lower Extremity Injury Location: foot Lower Extremity Immobilizer: post-op shoe Medical Decision Making - Medical Decision Making Patient is a 70-year-old female here for right foot pain after she twisted it in a hole yesterday. She has pain along the right days the fifth metatarsal. X- ray of the right foot reveals a lucency involving the proximal fifth metatarsal, dancer's fracture. I discussed these findings with the patient. Patient will be given a postop shoe for support, will follow up with her orthopedic doctor in about a week. She can use ice to area, Tylenol or ibuprofen for discomfort. She is stable for discharge and she is in agreement this plan of care. Case discussed with Dr. Mercer. Disposition Clinical Impression: Fracture of fifth metatarsal bone of right foot Disposition: HOME SELF-CARE Condition: Stable Instructions (If sedation given, give patient instructions): Foot Fracture in Adults (ED) Additional Instructions: Please return to the Emergency Department if symptoms worsen or any other concerns. Recommended boot for support. Ice to the area, Tylenol or ibuprofen for discomfort. Follow up with orthopedic doctor within one week. Is patient prescribed a controlled substance at d/c from ED?: No Referrals: Slade Dukes MD [Primary Care Provider] - 1-2 days Mike Stoddard DO [Doctor of Osteopathic Medicine] - 1-2 days Time of Disposition: 08:52
--- NOTE | 2021-02-14 08:41 | XR ---
Right foot HISTORY: Trauma and pain 3 views of the right foot There is a lucency involving the proximal fifth metatarsal. No evident dislocation or significant dis placement. Soft tissue swelling is suspected. Alignment is maintained. Ossific density present at the tibiotalar joint is well-corticated, there is marginal spurring. This plantar calcaneal spur. Enthes ophyte present at the insertion of Achilles tendon. Degenerative changes at the intertarsal joints ar e also noted. IMPRESSION: Dancer's fracture. Arthritis.
[2021-02-14 09:08] VITALS: BP 134/78; PULSE 80; TEMP 98
== END 2021-02-14 09:08 | disposition home or self-care (01) ==
LOC: EC 07:48
DX: S92.351A Displaced fracture of fifth metatarsal bone, right foot, initial encounter for closed fracture (principal); E11.9 Type 2 diabetes mellitus without complications; E78.5 Hyperlipidemia, unspecified; I10 Essential (primary) hypertension; I25.2 Old myocardial infarction; E07.9 Disorder of thyroid, unspecified; Z79.84 Long term (current) use of oral hypoglycemic drugs; Z79.899 Other long term (current) drug therapy; Z79.890 Hormone replacement therapy; Z88.0 Allergy status to penicillin; X50.1XXA Overexertion from prolonged static or awkward postures, initial encounter; Y93.01 Activity, walking, marching and hiking
CPT/HCPCS: 99283

== ENCOUNTER 2021-06-07 09:43 | Day surgery (SDC) | payer MEDICARE, OTHER ==
[2021-06-05 12:16] VITALS: BMI 37.5
--- NOTE | 2021-06-06 22:32 | HP ---
HISTORY AND PHYSICAL DATE OF SURGERY: 06/07/2021 Ceci Lorenzo is a 70-year-old patient seen with progressive left shoulder pain. We discussed options for treatment. She elected to proceed with arthroscopy. Consent was obtained. Medical clearance was provided by Dr. Dukes. PAST MEDICAL HISTORY: Hypertension, hyperlipidemia, hypothyroidism, sgx-rhdzwkv-tsdksonsh diabetes. PAST SURGICAL HISTORY: Cholecystectomy, bilateral total knee arthroplasty. MEDICATIONS: Buspirone, hydrochlorothiazide, Januvia, levothyroxine, losartan, metformin, metoprolol, atorvastatin. ALLERGIES: PENICILLIN. SOCIAL HISTORY: She denies tobacco use. PHYSICAL EXAMINATION: Evaluation of the left shoulder, flexion 100 degrees. Abduction is 90 degrees. External rotation is 40 degrees. Weakness and tenderness along the anterior lateral acromion and bicipital groove along with the rotator cuff insertion site. Impingement sign is positive at 80 degrees. Drop-arm sign is positive. Cross-body adduction sign is positive. Distal neurovascular exam is intact. Radiographs left shoulder: Type 2 acromion and cystic changes of the tuberosity. MRI left shoulder: Rotator cuff tear, acromioclavicular joint osteoarthritis, partial long head biceps tendon tear as well as well humeral joint osteoarthritis. IMPRESSION: 1. Left shoulder impingement with rotator cuff tear. 2. Left shoulder acromioclavicular joint osteoarthritis. 3. Hyperlipidemia. 4. Hypertension. 5. Dqv-cqsvcle-yeontotia diabetes. PLAN: Left shoulder arthroscopy with subacromial decompression, arthroscopic rotator cuff repair, Roslyn procedure and debridement. MMODL / IJN: [id number] /
[~2021-06-07 09:43] MED LIST changes: -ACETAMINOPHEN TAB 500 MG TAB PO ONE; -CLINDAMYCIN 900 MG in DEXTROSE 5% IN WATER 50 ML IVPB ONE; +CLINDAMYCIN 900 MG in DEXTROSE 5% IN WATER 50 ML IVPB PRN; -DEXAMETHASONE SOD PHOSPHATE 10 MG/ML 1 ML VIAL IV ONE; +DEXAMETHASONE SOD PHOSPHATE 4 MG/ML 1 ML VIAL IV ONE; +LACTATED RINGERS 1,000 ML IV SCH; -LIDOCAINE 1% 20 ML VIAL (10MG/ML) FOR IV START INTRADERMA PRN; -MELOXICAM 7.5 MG TAB PO ONE; -TRANEXAMIC ACID 1,000 MG in SODIUM CHLORIDE 0.9% 100 ML IVPB ONE
[2021-06-07] MEDS ORDERED: LIDOCAINE 1% (10MG/ML) FOR IV START INTRADERMA ONE (10:28)
[2021-06-07 10:35] LABS: Glucose,Whole Blood 147 mg/dL (75-99)
[2021-06-07] MEDS ORDERED: MIDAZOLAM 2 MG/2 ML VIAL IVP ONE (11:05)
[2021-06-07] MEDS ORDERED: DEXAMETHASONE SOD PHOSPHATE 4 MG/ML 1 ML VIAL ONE (12:23)
[2021-06-07] MEDS ORDERED: ROPIVACAINE 5 MG/ML 30 ML VIAL ONE (12:23)
[2021-06-07] MEDS ORDERED: SUCCINYLCHOLINE CHLORIDE 100 MG/5 ML SYR IV ONE (12:23)
[2021-06-07] MEDS ORDERED: fentaNYL (PF) 50 MCG/ML 2 ML AMP ONE (12:23)
[2021-06-07] MEDS ORDERED: PROPOFOL 10 MG/ML 20 ML VIAL IV ONE (12:23)
[2021-06-07] MEDS ORDERED: LIDOCAINE 1% INJ 10MG/ML (20 ML MDV) ONE (12:23)
[2021-06-07] MEDS ORDERED: LACTATED RINGERS 1,000 ML IV ONE (13:38)
--- NOTE | 2021-06-07 13:59 | P.OP ---
Date of Procedure: 06/07/21 Preoperative Diagnosis: Left shoulder impingement Postoperative Diagnosis: 1. Left shoulder rotator cuff tear 2. Left shoulder impingement 3. Left shoulder acromioclavicular joint osteoarthritis 4. Left shoulder partial long head biceps tendon tear 5. Left shoulder superficial labral tear 6. Left shoulder grade 4 glenohumeral osteoarthritis Procedure(s) Performed: 1. Left shoulder arthroscopic rotator cuff repair 2. Left shoulder arthroscopic subacromial decompression 3. Left shoulder arthroscopic Roslyn procedure 4. Left shoulder arthroscopic biceps tenotomy 5. Left shoulder arthroscopic debridement labral tear Implants: 14.75 Arthrex swivel lock anchor Anesthesia: GETA, regional (Interscalene block) Surgeon: Mike Stoddard Tooling Supervisor #1: Rahul Matthews Estimated Blood Loss (ml): 11 Pathology: none sent Condition: stable Disposition: PACU Indications for Procedure: 70-year-old patient seen with progressive left shoulder pain. After treatment options were discussed, she elected to proceed with arthroscopy. Operative Findings: See description of procedure Description of Procedure: Patient underwent an interscalene block by department of anesthesia. The patient was then taken to the operative suite. The patient underwent a general anesthetic by the department of anesthesia. The patient was placed into a lateral position and secured. There was appropriate padding of the bony prominence. Left shoulder was then prepped and draped in normal sterile orthopedic fashion. We placed the extremity in 10 pounds of longitudinal traction. A posterior incision was now made for a posterior working portal site. The trocar and cannula were inserted into the glenohumeral joint. Arthroscopy was initiated. Spinal needle was now inserted anteriorly, to ascertain the anterior working portal site. An incision was now made in that area, a trocar was inserted followed by a probe. There was partial tearing and hyperemia long head biceps tendon. There were grade 4 chondromalacia changes involving the glenoid fossa with areas of exposed bone. There were grade 3 chondromalacia changes of the humeral head with no osteochondral tears present. There was some superficial tearing of the anterior superior labrum. I performed arthroscopic biceps tenotomy. I debrided out the areas of superficial tearing of the superior and anterior labrum. The residual labrum was probed and found to be stable. Instruments now removed Utilizing the posterior working portal site, the trocar and cannula were inserted into the subacromial space. Arthroscopy initiated. I made an incision 2 fingerbreadths lateral to the acromion. I introduced my trocar followed by my ArthroCare ablator. I now began ablating thick subacromial bursal tissue, which exposed the undersurface of the anterior acromion. There was diminished subacromial space. There was a very prominent anterior acromion. A motorized bur was introduced and a subacromial decompression was performed. I also excised some osteophytes off the inferior aspect of the distal clavicle. The AC joint was visualized and noted to be fairly arthritic. The motorized bur was introduced in the anterior portal site and a Roslyn procedure was performed without difficulty, decompressing the AC joint nicely. I turned my attention to the rotator cuff. There was a 1.5 cm rotator cuff tear. I debrided the margins getting down to stable tendon tissue. I abraded the footprint with a motorized bur. With the assistance of Thierry VERGARA I passed 3 everted mattress sutures through good bites of rotator cuff tendon. I punched on the footprint for insertion of an anchor. All 6 limbs of suture were passed through the eyelet of a 4.75 swivel lock anchor. I placed the eyelet into the pre-punched hole. I held it in position while Thierry VERGARA tensioned all the suture limbs and deployed the anchor with good fixation noted. All residual suture limbs were now clipped. We had good compression of the tendon along the entire footprint. Instruments now removed from the portal sites. All portal sites were approximated with nylon suture. Sterile dressings were applied followed by a shoulder sling. Rahul VERGARA assisted in this case. The patient was awakened, transferred to a bed, and taken to recovery in stable condition.
[2021-06-07 14:02] VITALS: TEMP 97.3
[2021-06-07 14:04] LABS: Glucose,Whole Blood 169 mg/dL (75-99)
[2021-06-07 14:48] VITALS: RESP 16
[2021-06-07 15:24] VITALS: BP 140/75; PULSE 62
--- NOTE | 2021-06-07 20:15 | P.ANPRN ---
Procedure Note - Anesthesia - Nerve Block Performed Left Interscalene Single Time Out Performed: Yes Date of Procedure: 06/07/21 Procedure Start Time: 11:03 Procedure Stop Time: 11:13 Location of Patient: PreOp Indication: Acute Post-Operative Pain, Requested by Surgeon Sedation Type: Sedate with meaningful contact maintained Preparation: Sterile Prep Position: Supine Needle Types: Pajunk Needle Gauge: 21 Ultrasound used to visualize needle placement: Yes Ultrasound used to observe medication spread: Yes Blood Aspirated: No Pain Paresthesia on Injection Noted: No Resistance on Injection: Normal Image Stored and Saved: Yes Events: Uneventful and Well Tolerated (ropi .5% 25cc plus dexamethasone 4mg)
== END 2021-06-07 15:42 | disposition home or self-care (01) ==
LOC: OR 09:43
PROVIDERS: ATTEND Orthopaedic Surgery
DX: M75.102 Unspecified rotator cuff tear or rupture of left shoulder, not specified as traumatic (principal); M25.812 Other specified joint disorders, left shoulder; M19.012 Primary osteoarthritis, left shoulder; S46.112A Strain of muscle, fascia and tendon of long head of biceps, left arm, initial encounter; S43.432A Superior glenoid labrum lesion of left shoulder, initial encounter; X58.XXXA Exposure to other specified factors, initial encounter; I10 Essential (primary) hypertension; E78.5 Hyperlipidemia, unspecified; E03.9 Hypothyroidism, unspecified; E11.40 Type 2 diabetes mellitus with diabetic neuropathy, unspecified; Z90.49 Acquired absence of other specified parts of digestive tract; Z96.653 Presence of artificial knee joint, bilateral; G47.33 Obstructive sleep apnea (adult) (pediatric); Z98.51 Tubal ligation status; Z98.890 Other specified postprocedural states; Z97.2 Presence of dental prosthetic device (complete) (partial); Z79.890 Hormone replacement therapy; Z79.899 Other long term (current) drug therapy; Z88.0 Allergy status to penicillin
CPT/HCPCS: 64415; 76942; 29826; 29827; 29824; C1713; J2250; J1100; J2405; J2001; J3010; J2795; J0330; J2704

== ENCOUNTER → 2023-01-28 | Outpatient (CLI) | payer MEDICARE, OTHER | END | disposition home or self-care (01) | LOC: LABWHC1 08:21 | PROVIDERS: ATTEND Internal Medicine | DX: E11.65 Type 2 diabetes mellitus with hyperglycemia (principal) | CPT/HCPCS: 36415; 83036 ==

== ENCOUNTER 2023-05-07 08:50 | Day surgery (SDC) | payer MEDICARE, OTHER ==
[2023-05-01 14:39] VITALS: BMI 37.7
--- NOTE | 2023-05-07 06:31 | HP ---
HISTORY AND PHYSICAL DATE OF SURGERY: 05/07/2023. HISTORY OF PRESENT ILLNESS: Ceci Lorenzo is a 72-year-old patient, seen with progressive right shoulder pain. We discussed options for treatment. She elected to proceed with right shoulder arthroscopy. Consent was obtained. Medical clearance was provided by Dr. Slade Dukes's office. PAST MEDICAL HISTORY: Hypertension, hypothyroidism, gastroesophageal reflux disease, pyp-dwlgdwy-yzydhzfxe diabetes, and hyperlipidemia. PAST SURGICAL HISTORY: Cholecystectomy and bilateral total knee arthroplasty. DAILY MEDICATIONS: 1. Levothyroxine. 2. Losartan. 3. Gabapentin. 4. Hydrochlorothiazide. 5. Ozempic. 6. Rosuvastatin. ALLERGIES: Penicillin. SOCIAL HISTORY: She denies tobacco use. PHYSICAL EVALUATION OF THE RIGHT SHOULDER: Flexion is 90 degrees. Abduction is 90 degrees. External rotation is 30 degrees with weakness. Tenderness along the anterolateral acromion and rotator cuff insertion. Impingement sign is positive at 90 degrees. Drop-arm sign is positive. Distal neurovascular exam is intact. IMAGING STUDIES: Radiographs of right shoulder reveal a previously well-healed humeral head fracture. IMPRESSION: 1. Right shoulder impingement with probable rotator cuff tear. 2. Right shoulder healed humeral head fracture. 3. Hypertension. 4. Hyperlipidemia. 5. Jxf-soasqax-eylqczrxm diabetes. PLAN: Right shoulder arthroscopy, subacromial decompression, probable arthroscopic rotator cuff repair and debridement. MMODL / IJN: [id number] /
[~2023-05-07 08:50] MED LIST changes: -CLINDAMYCIN 900 MG in DEXTROSE 5% IN WATER 50 ML IVPB PRN; +HYDROmorphone 0.5 MG/0.5 ML SYRINGE IVP PRN; +LIDOCAINE 1% (10MG/ML) FOR IV START INTRADERMA PRN; +MIDAZOLAM 2 MG/2 ML VIAL IV PRN
[2023-05-07 09:41] LABS: Glucose,Whole Blood 113 mg/dL (70-110)
[2023-05-07] MEDS ORDERED: MIDAZOLAM 2 MG/2 ML VIAL IVP ONE (10:19)
--- NOTE | 2023-05-07 11:05 | P.ANPRN ---
Procedure Note - Anesthesia - Nerve Block Performed Right Interscalene Single Time Out Performed: Yes (1018) Date of Procedure: 05/07/23 Location of Patient: PreOp Indication: Acute Post-Operative Pain, Dx/Pain Location (Right sholuder), Requested by Surgeon Specifically requested for management of pain by DrJenna: Mike Stoddard Sedation Type: Sedate with meaningful contact maintained Preparation: Sterile Prep Position: Supine Catheter: None Needle Types: Pajunk Needle Gauge: 21 Ultrasound used to visualize needle placement: Yes Ultrasound used to observe medication spread: Yes Injectate: 0.5% Ropivacaine (see comment for volume) (30cc + 4mg of decadron) Blood Aspirated: No Pain Paresthesia on Injection Noted: No Resistance on Injection: Normal Image Stored and Saved: Yes Events: Uneventful and Well Tolerated
[2023-05-07] MEDS ORDERED: SUCCINYLCHOLINE CHLORIDE 200 MG/10 ML VIAL IV ONE (11:28)
[2023-05-07] MEDS ORDERED: PROPOFOL 10 MG/ML 20 ML VIAL IV ONE (11:28)
[2023-05-07] MEDS ORDERED: LIDOCAINE 2% INJ 20 MG/ML (2 ML VIAL) ONE (11:28)
[2023-05-07] MEDS ORDERED: ePHEDrine 50 MG/ML 1 ML VIAL ONE (11:28)
[2023-05-07] MEDS ORDERED: DEXAMETHASONE SOD PHOSPHATE 4 MG/ML 1 ML VIAL ONE (11:28)
[2023-05-07] MEDS ORDERED: fentaNYL (PF) 50 MCG/ML 2 ML AMP ONE (11:28)
[2023-05-07] MEDS ORDERED: ROPIVACAINE 5 MG/ML 30 ML VIAL ONE (11:28)
--- NOTE | 2023-05-07 13:09 | P.OP ---
Date of Procedure: 05/07/23 Preoperative Diagnosis: Right shoulder impingement Postoperative Diagnosis: 1. Right shoulder rotator cuff tear 2. Right shoulder impingement 3. Right shoulder acromioclavicular joint osteoarthritis 4. Right shoulder bicipital tendinitis 5. Right shoulder superficial glenoid labral tear Procedure(s) Performed: 1. Right shoulder arthroscopic rotator cuff repair 2. Right shoulder arthroscopic subacromial decompression 3. Right shoulder arthroscopic Roslyn procedure 4. Right shoulder arthroscopic biceps tenotomy 5. Right shoulder arthroscopic debridement superficial labral tear Implants: 1Arthrex 5.5 swivel lock anchor Anesthesia: GETA, regional (Interscalene block) Surgeon: Mike Stoddard Paver Operator #1: Kumar Bhakta Estimated Blood Loss (ml): 9 Pathology: none sent Condition: stable Disposition: PACU Indications for Procedure: 72-year-old patient who is seen with progressive right shoulder pain. After having treatment options discussed, she elected to proceed with arthroscopy. Operative Findings: See description of procedure Description of Procedure: Patient underwent an interscalene block by department of anesthesia. The patient was then taken to the operative suite. The patient underwent a general anesthetic by the department of anesthesia. The patient was placed into a lateral position and secured. There was appropriate padding of the bony prominence. Right shoulder was then prepped and draped in normal sterile orthopedic fashion. We placed the extremity in 10 pounds of longitudinal traction. A posterior incision was now made for a posterior working portal site. The trocar and cannula were inserted into the glenohumeral joint. Arthroscopy was initiated. Spinal needle was now inserted anteriorly, to ascertain the anterior working portal site. An incision was now made in that area, a trocar was inserted followed by a probe. There was some hyperemia of the long head biceps tendon consistent with bicipital tendinitis. There were grade 1/2 chondromalacia changes along the superior aspect of the glenoid fossa. There were grade 1 chondromalacia changes of the humeral head without tears. There was some superficial tearing of the anterior and superior labrum consistent with degenerative tearing. I debrided out the superficial tearing of the labrum down to stable tissue. I performed an arthroscopic biceps tenotomy. The residual labrum was probed and was found to be stable. Instruments were now removed from glenohumeral joint. Utilizing the posterior working portal site, the trocar and cannula were inserted into the subacromial space. Arthroscopy initiated. I made an incision 2 fingerbreadths lateral to the acromion. I introduced my trocar followed by my ArthroCare ablator. I now began ablating thick subacromial bursal tissue, which exposed the undersurface of the anterior acromion. There was diminished subacromial space. There was a very prominent anterior acromion. A motorized bur was introduced and a subacromial decompression was performed. I also excised some osteophytes off the inferior aspect of the distal clavicle. The AC joint was visualized and noted to be fairly arthritic. The motorized bur was introduced in the anterior portal site and a Roslyn procedure was performed without difficulty, decompressing the AC joint nicely. I turned my attention to the rotator cuff. There was a 1 cm tear along the distal supraspinatus area. I debrided the margins getting down to stable tendon tissue. I abraded the footprint with a motorized bur. With the assistance of Kumar VERGARA I passed 2 everted mattress sutures through good bites of rotator cuff tendon. I also passed a suture link posteriorly. I now punched the hole footprint area for insertion of an anchor. All 5 limbs of suture were passed through the eyelet of a 5.5 Arthrex swivel lock anchor. I placed the eyelet into the pre-punch hole. I held it in position while Kumar VERGARA tension all 5 limbs of suture and deployed the anchor with good fixation noted. All residual suture limbs were now clipped. We had good compression of the tendon along the entire footprint. Instruments now removed from the portal sites. All portal sites were approximated with nylon suture. Sterile dressings were applied followed by a shoulder sling. Kumar VERGARA assisted in all aspects of this case. The patient was awakened, transferred to a bed, and taken to recovery in stable condition.
[2023-05-07 13:12] LABS: Glucose,Whole Blood 144 mg/dL (70-110)
[2023-05-07 13:19] VITALS: TEMP 97
[2023-05-07 14:05] VITALS: RESP 16
[2023-05-07 14:58] VITALS: BP 118/80; PULSE 68
== END 2023-05-07 14:50 | disposition home or self-care (01) ==
LOC: OR 08:50
PROVIDERS: ATTEND Orthopaedic Surgery
DX: M75.101 Unspecified rotator cuff tear or rupture of right shoulder, not specified as traumatic (principal); M75.41 Impingement syndrome of right shoulder; M19.011 Primary osteoarthritis, right shoulder; M75.21 Bicipital tendinitis, right shoulder; S43.431A Superior glenoid labrum lesion of right shoulder, initial encounter; I10 Essential (primary) hypertension; E03.9 Hypothyroidism, unspecified; K21.9 Gastro-esophageal reflux disease without esophagitis; E11.9 Type 2 diabetes mellitus without complications; E78.5 Hyperlipidemia, unspecified; G47.33 Obstructive sleep apnea (adult) (pediatric); G62.9 Polyneuropathy, unspecified; Z88.0 Allergy status to penicillin; Z90.49 Acquired absence of other specified parts of digestive tract; Z96.653 Presence of artificial knee joint, bilateral; Z79.890 Hormone replacement therapy; Z79.891 Long term (current) use of opiate analgesic; Z79.85 Long-term (current) use of injectable non-insulin antidiabetic drugs; Z79.02 Long term (current) use of antithrombotics/antiplatelets
CPT/HCPCS: 64415; 84132; 29827; 29826; 29824; C1713 ×2; J2250; J0330; J1100; J0690; J2405; J3010; J2795; J2704; J2001

== ENCOUNTER 2023-10-20 08:00 | Day surgery (SDC) | payer MEDICARE, OTHER ==
[2023-10-15 09:38] VITALS: BMI 38.8
--- NOTE | 2023-10-20 07:49 | HP ---
HISTORY AND PHYSICAL DATE OF SURGERY: 10/20/2023 HISTORY OF PRESENT ILLNESS: Ceci Lorenzo is a 73-year-old patient, seen with persistent right shoulder adhesive capsulitis. We discussed options. She elected to proceed with manipulation under anesthesia of right shoulder with steroid injection. Consent was obtained. PAST MEDICAL HISTORY: Hypertension, hypothyroidism, hyperlipidemia, insulin-dependent diabetes. PAST SURGICAL HISTORY: Bilateral total knee arthroplasty, cholecystectomy, right shoulder arthroscopy. DAILY MEDICATIONS: 1. Levothyroxine. 2. Meloxicam. 3. Hydrochlorothiazide. 4. Insulin. 5. Ozempic. 6. Rosuvastatin. ALLERGIES: Penicillin. SOCIAL HISTORY: She denies tobacco use. PHYSICAL EVALUATION OF THE RIGHT SHOULDER: She has well-healed arthroscopic portal sites. Flexion is 80 degrees, abduction is 70 degrees. External rotation is 30 degrees with good strength. Her distal neurovascular exam is intact. IMAGING STUDIES: Right shoulder radiographs revealed a stable glenohumeral joint, evidence of previous tuberosity fracture. IMPRESSION: 1. Right shoulder adhesive capsulitis. 2. History of right shoulder arthroscopy. 3. Hypertension. 4. Hyperlipidemia. PLAN: Manipulation under anesthesia of right shoulder with steroid injection. MMODL / IJN: [id number] /
[~2023-10-20 08:00] MED LIST changes: -DEXAMETHASONE SOD PHOSPHATE 4 MG/ML 1 ML VIAL IV ONE; -LACTATED RINGERS 1,000 ML IV SCH; -LIDOCAINE 1% (10MG/ML) FOR IV START INTRADERMA PRN; -MIDAZOLAM 2 MG/2 ML VIAL IV PRN; -ONDANSETRON 4 MG/2 ML VIAL IVP ONE
[2023-10-20 09:10] VITALS: TEMP 977.5
[2023-10-20 09:19] LABS: Glucose,Whole Blood 104 mg/dL (70-110)
[2023-10-20] MEDS: LACTATED RINGERS 1,000 ML IV SCH (09:35)
[2023-10-20] MEDS: DEXAMETHASONE SOD PHOSPHATE 4 MG/ML 1 ML VIAL IV ONE (09:36)
[2023-10-20] MEDS: MIDAZOLAM 2 MG/2 ML VIAL IVP ONE (09:36)
[2023-10-20] MEDS: ONDANSETRON 4 MG/2 ML VIAL IVP ONE (09:36)
[2023-10-20] MEDS: fentaNYL (PF) 50 MCG/1 ML VIAL IVP ONE (09:36)
[2023-10-20] MEDS ORDERED: DEXAMETHASONE SOD PHOSPHATE 4 MG/ML 1 ML VIAL ONE (10:00)
[2023-10-20] MEDS ORDERED: PROPOFOL 10 MG/ML 20 ML VIAL IV ONE (10:00)
[2023-10-20] MEDS ORDERED: SODIUM CHLORIDE 0.9% (PF) 10 ML VIAL ONE (10:00)
[2023-10-20] MEDS ORDERED: ROPIVACAINE 5 MG/ML 30 ML VIAL ONE (10:00)
--- NOTE | 2023-10-20 10:00 | P.ANPRN ---
Procedure Note - Anesthesia - Nerve Block Performed Right Interscalene Single Time Out Performed: Yes Date of Procedure: 10/20/23 Procedure Start Time: 09:35 Procedure Stop Time: 09:40 Location of Patient: PreOp Indication: Acute Post-Operative Pain, Requested by Surgeon Sedation Type: Sedate with meaningful contact maintained Preparation: Sterile Prep Position: Supine Needle Types: Pajunk Needle Gauge: 21 Ultrasound used to visualize needle placement: Yes Ultrasound used to observe medication spread: Yes Injectate: 0.5% Ropivacaine (see comment for volume) (Ropivacaine 0.5% 20 ml + 10 ml NS + 4 mg Dexamethasone) Blood Aspirated: No Pain Paresthesia on Injection Noted: No Resistance on Injection: Normal Image Stored and Saved: Yes Events: Uneventful and Well Tolerated
--- NOTE | 2023-10-20 10:11 | P.OP ---
Date of Procedure: 10/20/23 Preoperative Diagnosis: Right shoulder adhesive capsulitis Postoperative Diagnosis: Right shoulder adhesive capsulitis Procedure(s) Performed: Manipulation under anesthesia right shoulder with steroid injection Anesthesia: MAC, local Surgeon: Mike Stoddard Estimated Blood Loss (ml): 0 Pathology: none sent Condition: stable Disposition: PACU Indications for Procedure: 73-year-old patient seen with persistent right shoulder adhesive capsulitis. After having treatment options discussed, she elected to proceed with manipulation under anesthesia right shoulder with steroid injection. Operative Findings: See description of procedure Description of Procedure: Patient was taken to a monitored anesthesia area. She received IV sedation by the department of anesthesia. When sufficient anesthesia was achieved I proceeded with a manipulation of the right shoulder achieving full range of motion with audible tearing of the adhesions. The anterior aspect of the shoulder was prepped and draped in normal sterile orthopedic fashion. I now injected a solution of 1 cc of Depo-Medrol and 2 cc 1% plain Marcaine intra- articular glenohumeral joint. A sterile Band-Aid was applied. I again took the shoulder through full range of motion. The patient was awakened having tolerated procedure well.
[2023-10-20 10:20] LABS: Glucose,Whole Blood 108 mg/dL (70-110)
[2023-10-20 11:15] VITALS: PULSE 61; RESP 16
[2023-10-20 11:45] VITALS: BP 134/73
== END 2023-10-20 11:24 | disposition home or self-care (01) ==
LOC: OR 08:00
PROVIDERS: ATTEND Orthopaedic Surgery
DX: M75.01 Adhesive capsulitis of right shoulder (principal); G89.18 Other acute postprocedural pain; I10 Essential (primary) hypertension; E78.5 Hyperlipidemia, unspecified; E11.9 Type 2 diabetes mellitus without complications; E03.9 Hypothyroidism, unspecified; Z79.899 Other long term (current) drug therapy; Z79.4 Long term (current) use of insulin; Z88.0 Allergy status to penicillin
CPT/HCPCS: 64415; 23700; J2250; J1100; J2405; J3010

== ENCOUNTER 2023-11-09 14:24 | Emergency (ER) | payer MEDICARE, OTHER ==
[2023-11-09 14:33] LABS: Glucose,Whole Blood 190 mg/dL (70-110)
--- NOTE | 2023-11-09 15:01 | ED ---
Recheck HPI - General Chief Complaint: Recheck/Abnormal Lab/Rx Stated Complaint: Faint/light headed Time Seen by Provider: 11/09/23 14:35 Source: patient Mode of arrival: ambulatory Limitations: no limitations - Related Data Home Medications Medication Instructions Recorded Confirmed Levothyroxine Sodium [Synthroid] 50 mcg PO QAM 06/07/14 10/20/23 hydroCHLOROthiazide [Hydrodiuril] 25 mg PO DAILY 06/07/14 10/20/23 Rosuvastatin [Crestor] 5 mg PO DAILY 10/27/17 10/20/23 Meloxicam [Mobic] 7.5 mg PO BID 02/14/21 10/20/23 Gabapentin [Neurontin] 400 mg PO BID 06/05/21 10/20/23 ARIPiprazole 2 mg PO QAM 08/26/22 10/20/23 DULoxetine HCL [Cymbalta] 30 mg PO QAM 08/26/22 10/20/23 Pioglitazone [Actos] 15 mg PO DAILY 08/26/22 10/20/23 Semaglutide [Ozempic] 1 injection INJ TU 08/26/22 10/20/23 Empagliflozin [Jardiance] 10 mg PO DAILY 05/01/23 10/20/23 Multivitamin [Multivitamins Adult 1 each PO QAM 10/15/23 10/20/23 Gummies] Previous Rx's Medication Instructions Recorded HYDROcodone/APAP 7.5-325MG [[place] 1 each PO Q8HR PRN #21 tab 10/20/23 7.5] Allergies Allergy/AdvReac Type Severity Reaction Status Date / Time Penicillins Allergy Severe Anaphylaxis Verified 11/09/23 14:29 Review of Systems ROS Statement: Those systems with pertinent positive or pertinent negative responses have been documented in the HPI. ROS Other: All systems not noted in ROS Statement are negative. Past Medical History Past Medical History: Diabetes Mellitus, Hyperlipidemia, Hypertension, Musculoskeletal Disorder, Osteoarthritis (OA), Skin Disorder, Sleep Apnea/CPAP/BIPAP, Thyroid Disorder Additional Past Medical History / Comment(s): uses CPAP PRN, fatty liver, neuropathy feet,no longer taking b/p meds since 2018, plaque on back, carpal tunnel to both wrist with recent steroid injection Sep 2023, OA lower back. Last Myocardial Infarction Date:: unknown History of Any Multi-Drug Resistant Organisms: None Reported Past Surgical History: Cholecystectomy, Heart Catheterization, Hernia Repair, Joint Replacement, Tubal Ligation Additional Past Surgical History / Comment(s): jason. knee replacements EGD, lap. jen fundiplication cataract removal jason,left shoulder repair, rt shoulder surgery May 2023, heart cath 2013-no stents. Past Anesthesia/Blood Transfusion Reactions: Previous Problems w/ Anesthesia Additional Past Anesthesia/Blood Transfusion Reaction / Comment(s): one time difficulty waking up after anes.1998-no problems since, very difficult IV start. no hx blood transfusion Past Psychological History: Depression Smoking Status: Vaper Past Alcohol Use History: None Reported Past Drug Use History: None Reported - Past Family History Father Family Medical History: Congestive Heart Failure (CHF), Diabetes Mellitus Mother Family Medical History: COPD, Hypertension Brother(s) Family Medical History: Coronary Artery Disease (CAD), Diabetes Mellitus General Exam Limitations: no limitations Course Vital Signs 11/09/23 14:25 Temperature 98.2 F Pulse Rate 79 Respiratory 20 Rate Blood Pressure 142/80 O2 Sat by Pulse 97 Oximetry Medical Decision Making - Lab Data Lab Results 11/09/23 Range/Units 14:31 POC Glucose (mg/dL) 190 H (70-110) mg/dL POC Glu Senior Front End Developer ID Allie Johnson Disposition Referrals: Slade Dukes MD [Primary Care Provider] - 1-2 days
--- NOTE | 2023-11-09 15:01 | ED ---
Recheck HPI - General Chief Complaint: Recheck/Abnormal Lab/Rx Stated Complaint: Faint/light headed Time Seen by Provider: 11/09/23 14:35 Source: patient, RN notes reviewed, old records reviewed Mode of arrival: ambulatory Limitations: no limitations - History of Present Illness Initial Comments: This is a 73-year-old female to the ER for evaluation today. Patient presents to the emergency department ate for evaluation regards to what she states was an unreadable blood sugar at home. Patient does have a why a wireless Dexcom and it started beeping while she was watching TV she did go check it and it said her blood sugar was 0 and continued to state that despite her eating, patient became very anxious and a little nervous at that at times became dizzy and lightheaded and went to get her daughter who does live with her and wanted to come to the hospital. Patient presents today for evaluation of low blood sugar and confusion with no headache chest pain shortness of breath or abdominal pain. No change in medications of recent MD Complaint: abnormal lab (Low blood sugar) Returns Today for: Called Because of Abnormal Lab/Test Symptoms Since Prior Visit: no new symptoms Associated Symptoms: none Treatments Prior to Arrival: other (0) - Related Data Home Medications Medication Instructions Recorded Confirmed Levothyroxine Sodium [Synthroid] 50 mcg PO QAM 06/07/14 10/20/23 hydroCHLOROthiazide [Hydrodiuril] 25 mg PO DAILY 06/07/14 10/20/23 Rosuvastatin [Crestor] 5 mg PO DAILY 10/27/17 10/20/23 Meloxicam [Mobic] 7.5 mg PO BID 02/14/21 10/20/23 Gabapentin [Neurontin] 400 mg PO BID 06/05/21 10/20/23 ARIPiprazole 2 mg PO QAM 08/26/22 10/20/23 DULoxetine HCL [Cymbalta] 30 mg PO QAM 08/26/22 10/20/23 Pioglitazone [Actos] 15 mg PO DAILY 08/26/22 10/20/23 Semaglutide [Ozempic] 1 injection INJ TU 08/26/22 10/20/23 Empagliflozin [Jardiance] 10 mg PO DAILY 05/01/23 10/20/23 Multivitamin [Multivitamins Adult 1 each PO QAM 10/15/23 10/20/23 Gummies] Previous Rx's Medication Instructions Recorded HYDROcodone/APAP 7.5-325MG [[place] 1 each PO Q8HR PRN #21 tab 10/20/23 7.5] Cephalexin [Keflex] 500 mg PO TID #15 cap 11/09/23 Allergies Allergy/AdvReac Type Severity Reaction Status Date / Time Penicillins Allergy Severe Anaphylaxis Verified 11/09/23 14:29 Review of Systems ROS Statement: Those systems with pertinent positive or pertinent negative responses have been documented in the HPI. ROS Other: All systems not noted in ROS Statement are negative. Past Medical History Past Medical History: Diabetes Mellitus, Hyperlipidemia, Hypertension, Musculoskeletal Disorder, Osteoarthritis (OA), Skin Disorder, Sleep Apnea/CPAP/BIPAP, Thyroid Disorder Additional Past Medical History / Comment(s): uses CPAP PRN, fatty liver, neuropathy feet,no longer taking b/p meds since 2018, plaque on back, carpal tunnel to both wrist with recent steroid injection Sep 2023, OA lower back. Last Myocardial Infarction Date:: unknown History of Any Multi-Drug Resistant Organisms: None Reported Past Surgical History: Cholecystectomy, Heart Catheterization, Hernia Repair, Joint Replacement, Tubal Ligation Additional Past Surgical History / Comment(s): jason. knee replacements EGD, lap. jen fundiplication cataract removal jason,left shoulder repair, rt shoulder surgery May 2023, heart cath 2013-no stents. Past Anesthesia/Blood Transfusion Reactions: Previous Problems w/ Anesthesia Additional Past Anesthesia/Blood Transfusion Reaction / Comment(s): one time difficulty waking up after anes.1998-no problems since, very difficult IV start. no hx blood transfusion Past Psychological History: Depression Smoking Status: Vaper Past Alcohol Use History: None Reported Past Drug Use History: None Reported - Past Family History Father Family Medical History: Congestive Heart Failure (CHF), Diabetes Mellitus Mother Family Medical History: COPD, Hypertension Brother(s) Family Medical History: Coronary Artery Disease (CAD), Diabetes Mellitus General Exam Limitations: no limitations General appearance: alert, in no apparent distress Head exam: Present: atraumatic, normocephalic, normal inspection Eye exam: Present: normal appearance, PERRL, EOMI. Absent: scleral icterus, conjunctival injection, periorbital swelling ENT exam: Present: normal exam, mucous membranes moist Neck exam: Present: normal inspection. Absent: tenderness, meningismus, lymphadenopathy Respiratory exam: Present: normal lung sounds bilaterally. Absent: respiratory distress, wheezes, rales, rhonchi, stridor Cardiovascular Exam: Present: regular rate, normal rhythm, normal heart sounds. Absent: systolic murmur, diastolic murmur, rubs, gallop, clicks GI/Abdominal exam: Present: soft, normal bowel sounds. Absent: distended, tenderness, guarding, rebound, rigid Extremities exam: Present: normal inspection, full ROM, normal capillary refill. Absent: tenderness, pedal edema, joint swelling, calf tenderness Back exam: Present: normal inspection Neurological exam: Present: alert, oriented X3, CN II-XII intact Psychiatric exam: Present: normal affect, normal mood Skin exam: Present: warm, dry, intact, normal color. Absent: rash Course Vital Signs 11/09/23 11/09/23 11/09/23 14:25 16:29 17:50 Temperature 98.2 F 98.1 F Pulse Rate 79 64 65 Respiratory 20 18 18 Rate Blood Pressure 142/80 115/60 114/68 O2 Sat by Pulse 97 99 98 Oximetry 11/09/23 18:24 Temperature 98.2 F Pulse Rate 70 Respiratory 18 Rate Blood Pressure 125/78 O2 Sat by Pulse 94 L Oximetry - Reevaluation(s) Reevaluation #1: 11/09/23 15:46 Medical records reviewed Reevaluation #2: 11/09/23 15:46 Patient symptoms are improved Reevaluation #3: 11/09/23 15:46 Patient informed of results and questions answered Reevaluation #4: Was pt. sent in by a medical professional or institution (, PA, CARPET INSPECTOR, urgent care, hospital, or [place] [facility] facility...) When possible be specific @ -no Did you speak to anyone other than the patient for history (EMS, parent, family, police, friend...)? What history was obtained from this source @ -no Did you review nursing and triage notes (agree or disagree)? Why? @ -agree Are old charts reviewed (outside hosp., previous admission, EMS record, old EKG, old radiological studies, urgent care reports/EKG's, [place] [facility] facility records)? Report findings @ -yes Differential Diagnosis (chest pain, altered mental status, abdominal pain women, abdominal pain men, vaginal bleeding, weakness, fever, dyspnea, syncope, headache, dizziness, GI bleed, back pain, seizure, CVA, palpatations, mental health, musculoskeletal)? @ -prior EKG interpreted by me (3pts min.). @ -yes X-rays interpreted by me (1pt min.). @ -no CT interpreted by me (1pt min.). @ -no U/S interpreted by me (1pt. min.). @ -no What testing was considered but not performed or refused? (CT, X-rays, U/S, labs)? Why? @ -none What meds were considered but not given or refused? Why? @ -none Did you discuss the management of the patient with other professionals (professionals i.e. DrJenna, PA, CARPET INSPECTOR, lab, RT, psych nurse, director social welfare, carton stamper, teacher, workers' compensation hearings officer, mental health case manager)? Give summary @ -no Was smoking cessation discussed for >3mins.? @ -no Was critical care preformed (if so, how long)? @ -no Were there social determinants of health that impacted care today? How? (Homelessness, low income, unemployed, alcoholism, drug addiction, transportation, low edu. Level, literacy, decrease access to med. care, usp, rehab)? @ -none Was there de-escalation of care discussed even if they declined (Discuss DNR or withdrawal of care, Hospice)? DNR status @ -no What co-morbidities impacted this encounter? (DM, HTN, Smoking, COPD, CAD, Cancer, CVA, ARF, Chemo, Hep., AIDS, mental health diagnosis, sleep apnea, morbid obesity)? @ -none Was patient admitted / discharged? Hospital course, mention meds given and route, prescriptions, significant lab abnormalities, going to OR and other pertinent info. @ - 73 female to the ER for evaluation today. Patient is today for evaluation regards to low blood sugar, blood sugar is normal here in the ER patient lab values has normal values and patient can be discharged home Discharge Undiagnosed new problem with uncertain prognosis? @ -no Drug Therapy requiring intensive monitoring for toxicity (Heparin, Nitro, Insulin, Cardizem)? @ -no Were any procedures done? @ -no Diagnosis/symptom? @ -Low blood sugar, weakness, UTI, low potassium Acute, or Chronic, or Acute on Chronic? @ -Acute Uncomplicated (without systemic symptoms) or Complicated (systemic symptoms)? @ -Complicated Side effects of treatment? @ -no Exacerbation, Progression, or Severe Exacerbation? @ -exacerbation Poses a threat to life or bodily function? How? (Chest pain, USA, NH, pneumonia, PE, COPD, DKA, ARF, appy, cholecystitis, CVA, Diverticulitis, Homicidal, Suicidal, threat to staff... and all critical care pts) @ -yes extremes of age Reevaluation #5: Differential Weakness: Hypoglycemia, shock, sepsis, hyponatremia, anemia, infection, NH, ETOH, adverse medicine reaction, overdose, stroke, this is not meant to be an all-inclusive list. Medical Decision Making - Medical Decision Making 73 female to the ER for evaluation today. Patient is today for evaluation regards to low blood sugar, blood sugar is normal here in the ER patient lab values has normal values and patient can be discharged home - Lab Data Result diagrams: 11/09/23 15:08 11/09/23 15:08 Lab Results 11/09/23 11/09/23 11/09/23 Range/Units 14:31 15:08 15:08 WBC 8.6 (3.8-10.6) k/uL RBC 4.70 (3.80-5.40) m/uL Hgb 14.7 (11.4-16.0) gm/dL Hct 43.8 (34.0-46.0) % MCV 93.2 (80.0-100.0) fL MCH 31.3 (25.0-35.0) pg MCHC 33.6 (31.0-37.0) g/dL RDW 13.7 (11.5-15.5) % Plt Count 207 (150-450) k/uL MPV 9.0 Neutrophils % 57 % Lymphocytes % 35 % Monocytes % 6 % Eosinophils % 1 % Basophils % 1 % Neutrophils # 4.9 (1.3-7.7) k/uL Lymphocytes # 3.0 (1.0-4.8) k/uL Monocytes # 0.5 (0-1.0) k/uL Eosinophils # 0.1 (0-0.7) k/uL Basophils # 0.0 (0-0.2) k/uL Sodium 138 (137-145) mmol/L Potassium 2.7 L* (3.5-5.1) mmol/L Chloride 100 (98-107) mmol/L Carbon Dioxide 29 (22-30) mmol/L Anion Gap 9 mmol/L BUN 17 (7-17) mg/dL Creatinine 0.92 (0.52-1.04) mg/dL Est GFR (CKD-EPI)AfAm 71 (>60 ml/min/1.73 sqM) Est GFR (CKD-EPI)NonAf 62 (>60 ml/min/1.73 sqM) Glucose 200 H (74-99) mg/dL POC Glucose (mg/dL) 190 H (70-110) mg/dL POC Glu Blister Rust Eradicator ID Johnson Kelley Calcium 8.6 (8.4-10.2) mg/dL Phosphorus 3.1 (2.5-4.5) mg/dL Magnesium 2.2 (1.6-2.3) mg/dL Total Bilirubin 0.7 (0.2-1.3) mg/dL AST 31 (14-36) U/L ALT 29 (4-34) U/L Alkaline Phosphatase 79 (38-126) U/L Total Protein 6.9 (6.3-8.2) g/dL Albumin 4.1 (3.5-5.0) g/dL TSH 1.920 (0.465-4.680) mIU/L Urine Color Urine Appearance (Clear) Urine pH (5.0-8.0) Ur Specific [place] (1.001-1.035) Urine Protein (Negative) Urine Glucose (UA) (Negative) Urine Ketones (Negative) Urine Blood (Negative) Urine Nitrite (Negative) Urine Bilirubin (Negative) Urine Urobilinogen (<2.0) mg/dL Ur Leukocyte Esterase (Negative) Urine RBC (0-5) /hpf Urine WBC (0-5) /hpf Ur Squamous Epith Cells (0-4) /hpf Urine Bacteria (None) /hpf 11/09/23 11/09/23 Range/Units 15:08 15:52 WBC (3.8-10.6) k/uL RBC (3.80-5.40) m/uL Hgb (11.4-16.0) gm/dL Hct (34.0-46.0) % MCV (80.0-100.0) fL MCH (25.0-35.0) pg MCHC (31.0-37.0) g/dL RDW (11.5-15.5) % Plt Count (150-450) k/uL MPV Neutrophils % % Lymphocytes % % Monocytes % % Eosinophils % % Basophils % % Neutrophils # (1.3-7.7) k/uL Lymphocytes # (1.0-4.8) k/uL Monocytes # (0-1.0) k/uL Eosinophils # (0-0.7) k/uL Basophils # (0-0.2) k/uL Sodium (137-145) mmol/L Potassium (3.5-5.1) mmol/L Chloride (98-107) mmol/L Carbon Dioxide (22-30) mmol/L Anion Gap mmol/L BUN (7-17) mg/dL Creatinine (0.52-1.04) mg/dL Est GFR (CKD-EPI)AfAm (>60 ml/min/1.73 sqM) Est GFR (CKD-EPI)NonAf (>60 ml/min/1.73 sqM) Glucose (74-99) mg/dL POC Glucose (mg/dL) 160 H (70-110) mg/dL POC Glu Blister Rust Eradicator ID Lizbeth Vásquez Calcium (8.4-10.2) mg/dL Phosphorus (2.5-4.5) mg/dL Magnesium (1.6-2.3) mg/dL Total Bilirubin (0.2-1.3) mg/dL AST (14-36) U/L ALT (4-34) U/L Alkaline Phosphatase (38-126) U/L Total Protein (6.3-8.2) g/dL Albumin (3.5-5.0) g/dL TSH (0.465-4.680) mIU/L Urine Color Yellow Urine Appearance Clear (Clear) Urine pH 6.0 (5.0-8.0) Ur Specific [place] 1.026 (1.001-1.035) Urine Protein Negative (Negative) Urine Glucose (UA) 4+ H (Negative) Urine Ketones Negative (Negative) Urine Blood Negative (Negative) Urine Nitrite Positive H (Negative) Urine Bilirubin Negative (Negative) Urine Urobilinogen <2.0 (<2.0) mg/dL Ur Leukocyte Esterase Moderate H (Negative) Urine RBC 2 (0-5) /hpf Urine WBC 56 H (0-5) /hpf Ur Squamous Epith Cells <1 (0-4) /hpf Urine Bacteria Occasional H (None) /hpf Disposition Clinical Impression: Weakness, Diabetes type 2, controlled, Hypoglycemia, Hyperkalemia, UTI (urinary tract infection) Disposition: HOME SELF-CARE Condition: Good Instructions (If sedation given, give patient instructions): Urinary Tract Infection in Women (ED), Hypoglycemia in a Person with Diabetes (ED), Weakness (ED) Prescriptions: Cephalexin [Keflex] 500 mg PO TID #15 cap Is patient prescribed a controlled substance at d/c from ED?: No Referrals: Slade Dukes MD [Primary Care Provider] - 1-2 days Time of Disposition: 15:40
[2023-11-09] MEDS: SODIUM CHLORIDE 0.9% 1,000 ML IV STA ×2 (15:24→17:09)
[2023-11-09] MEDS: ONDANSETRON 4 MG/2 ML VIAL IVP STA (15:26)
[2023-11-09 15:41] LABS: Basophils % (A) 1 %; Eosinophils # (A) 0.1 k/uL (0-0.7); Eosinophils % (A) 1 %; HCT 43.8 % (34.0-46.0); HGB 14.7 gm/dL (11.4-16.0); Lymphocytes % (A) 35 %; MCH 31.3 pg (25.0-35.0); MCHC 33.6 g/dL (31.0-37.0); MCV 93.2 fL (80.0-100.0); Monocytes # (A) 0.5 k/uL (0-1.0); Monocytes % (A) 6 %; Neutrophils # (A) 4.9 k/uL (1.3-7.7); Neutrophils % (A) 57 %; Platelet Count 207 k/uL (150-450); RDW 13.7 % (11.5-15.5); WBC 8.6 k/uL (3.8-10.6)
[2023-11-09 15:55] LABS: ALT 29 U/L (4-34); AST 31 U/L (14-36); African American GFR (CKD) 71 (>60 ml/min/1.73 sqM); Albumin 4.1 g/dL (3.5-5.0); Alkaline Phosphatase 79 U/L (38-126); Anion Gap 9 mmol/L; Blood Urea Nitrogen 17 mg/dL (7-17); Calcium 8.6 mg/dL (8.4-10.2); Carbon Dioxide 29 mmol/L (22-30); Chloride 100 mmol/L (98-107); Glucose 200 mg/dL (74-99); Magnesium 2.2 mg/dL (1.6-2.3); Non-African American GFR(CKD) 62 (>60 ml/min/1.73 sqM); Phosphorus 3.1 mg/dL (2.5-4.5); Sodium 138 mmol/L (137-145); Total Bilirubin 0.7 mg/dL (0.2-1.3); Total Protein 6.9 g/dL (6.3-8.2)
[2023-11-09 15:56] LABS: Glucose,Whole Blood 160 mg/dL (70-110)
[2023-11-09 15:59] LABS: Potassium 2.7 mmol/L (3.5-5.1)
[2023-11-09 16:44] LABS: Appearance,Urine Clear (Clear); Bacteria,Urine Occasional /hpf; Bilirubin,Urine Negative (Negative); Blood,Urine Negative (Negative); Color,Urine Yellow; Glucose,Urine (UA) 4+ (Negative); Ketones,Urine Negative (Negative); Leukocyte Esterase,Urine Moderate (Negative); Nitrite,Urine Positive (Negative); Protein,Urine Negative (Negative); RBC,Urine 2 /hpf (0-5); Specific Gravity,Urine 1.026 (1.001-1.035); Squamous Epithelial Cell,Urine <1 /hpf (0-4); Urobilinogen,Urine <2.0 mg/dL (<2.0); WBC,Urine 56 /hpf (0-5)
[2023-11-09 17:02] VITALS: RESP 18
[2023-11-09] MEDS: POTASSIUM BICARBONATE/CIT AC 20 MEQ TABLET.EFF PO ONE ×2 (17:10→17:49)
[2023-11-09 18:38] VITALS: BP 125/78; PULSE 70; TEMP 98.2
== END 2023-11-09 18:24 | disposition home or self-care (01) ==
LOC: EC 14:24
DX: R53.1 Weakness (principal); E11.649 Type 2 diabetes mellitus with hypoglycemia without coma; E87.5 Hyperkalemia; N39.0 Urinary tract infection, site not specified; F17.290 Nicotine dependence, other tobacco product, uncomplicated; Z88.0 Allergy status to penicillin; Z79.84 Long term (current) use of oral hypoglycemic drugs
CPT/HCPCS: 36415; 80053; 83735; 84100; 84443; 85025; 81001; 99284; 96365; 96375; J2405; J0696